=== PATIENT | male | born 1970 | race Caucasian/White ===

== ENCOUNTER 2024-07-03 15:07 | Inpatient (IN) | payer MEDICAID ==
[2024-07-03] VITALS (8 sets, daily range): BP systolic 114–144; BP diastolic 54–74; PULSE 82–128; RESP 24–28; O2SAT 91–99
[~2024-07-03] VITALS: Ht 177.8 cm; Wt 135.9 kg
[2024-07-03 20:08] LABS: ABG BASE EXCESS -2.9 mmol/L (-2.0-3.0); ABG HCO3 23.3 mmol/L (21.0-28.0); ABG OXYGEN SATURATION 98.3 % (94.0-98.0); ABG PCO2 (T) 45.4 mmHg (35.0-48.0); ABG PH (T) 7.327 (7.350-7.450); FCOHb 0.3 % (0.5-1.5); FHHb 1.7 % (0.0-5.0); FMetHb 0.3 % (0.0-1.5); FO2Hb 97.7 % (94.0-98.0); MODE PRVC; PATIENT TEMPERATURE 36.7; PEEP 10 cm H2O; RESPIRATORY RATE 24 b/min; TIDAL VOLUME 450 mL; TOTAL HEMOGLOBIN 13.4 G/dl (13.5-17.5)
--- NOTE | 2024-07-03 20:08 | RADIOLOGY REPORT ---
EXAM: DI CHEST,SINGLE VIEW CLINICAL HISTORY: Intubation/lines, transfer TECHNIQUE: Single AP view of the chest WID: COMPARISON: None FINDINGS: Lines and tubes: Endotracheal tube in place with the tip projecting 6.7 cm above the carola. Right IJ central venous catheter with the tip projecting over the low SVC. A gastric tube is in place descend ing beneath the level of the hemidiaphragm and tip not visualized in field of view. Chest: The heart size and pulmonary vasculature is within normal limits. Calcified plaque projects over the aortic arch. Diffuse hazy opacity throughout the left lung. No pneumothorax. The right lung is clear. The osseous structures are grossly intact. IMPRESSION: 1. Endotracheal tube, gastric tube, and right IJ central venous catheter in place as described. 2. Diffuse hazy opacity throughout the left lung which could reflect layering pleural fluid.
[2024-07-03] MEDS: midazolam 100mg in NS 100ml 100 ML IV SCH (20:09)
[2024-07-03] MEDS: FENTANYL-0.9 % NACL/PF 100 ML IV SCH (20:09)
[2024-07-03 20:16] LABS: BASOPHILS # (AUTO) 0.2 X10'3 (0-0.2); EOSINOPHILS % (AUTO) 0 % (0-6); HEMATOCRIT 38.1 % (42.0-52.0); HEMOGLOBIN 12.1 g/dl (14.0-17.9); LYMPHOCYTES # (AUTO) 0.3 X10'3 (1.1-4.8); LYMPHOCYTES % (AUTO) 1.6 % (21-51); MEAN CORPUSCULAR HEMOGLOBIN 28.4 PG (27.0-31.0); MEAN CORPUSCULAR HGB CONC 31.9 g/dL (33.0-36.5); MEAN CORPUSCULAR VOLUME 89.2 FL (78-98); MEAN PLATELET VOLUME 10.1 FL (7.4-10.4); MONOCYTES % (AUTO) 5.8 % (2-12); NEUTROPHILS # (AUTO) 16.1 X10'3 (1.8-7.7); NEUTROPHILS % (AUTO) 91.6 % (42-75); PLATELET COUNT 188 X10'3 (140-440); RED BLOOD COUNT 4.27 X10'6 (4.70-6.10); RED CELL DISTRIBUTION WIDTH 17.8 % (11.5-14.5); WHITE BLOOD COUNT 17.6 X10'3 (4.5-11.0)
[2024-07-03 20:29] LABS: APTT 27 SECONDS (22-32); INR 1.1 INR; PROTHROMBIN TIME 11.3 SECONDS (9.0-12.0)
[2024-07-03 20:34] LABS: ALANINE AMINOTRANSFERASE 49 U/L (12-78); ALBUMIN 2.7 G/DL (3.4-5.0); ALBUMIN/GLOBULIN RATIO 0.8 (1.1-1.5); ALKALINE PHOSPHATASE 109 IU/L (46-116); ANION GAP 12 (8-16); ASPARTATE AMINO TRANSFERASE 21 U/L (10-37); BLOOD UREA NITROGEN 142 MG/DL (7-18); BUN/CREATININE RATIO 53.8 (10.0-20.0); CALCIUM 8.5 MG/DL (8.5-10.1); CHLORIDE 108 MMOL/L (99-107); CREATININE 2.64 MG/DL (0.60-1.10); GLUCOSE 179 MG/DL (70-104); MAGNESIUM 3.4 MG/DL (1.5-2.4); PHOSPHORUS 6.7 MG/DL (2.3-4.5); POTASSIUM 4.3 MMOL/L (3.5-5.1); SODIUM 145 MMOL/L (135-145); TOTAL CARBON DIOXIDE 25.1 MMOL/L (24-32); TOTAL CELLS COUNTED 100; TOTAL PROTEIN 6.1 G/DL (6.4-8.2); eCRCL 33 ML/MIN; eGFR 25 ML/MIN
[2024-07-03] MEDS ORDERED: acetaminophen 325mg tablet PO PRN ×2 (20:40)
[2024-07-03] MEDS: normal saline 1000ml 1,000 ML IV SCH (20:40)
[2024-07-03] MEDS ORDERED: ondansetron/PF 4mg/2ml inj IV PRN (20:40)
[2024-07-03] MEDS ORDERED: normal saline 1000ml 1,000 ML IV SCH (20:40)
--- NOTE | 2024-07-03 20:52 | HISTORY AND PHYSICAL ---
History & Physical Providers to CC Direct transfer from another facility called [facility] for continued respiratory support~ History of Present Illness Reason for Admit\Complaint: Acute respiratory failure, sepsis, MICKEY, and pleural effusion History of Present Illness History is obtained from communication with the RN at the bedside. Patient apparently was admitted about 9 days ago to another facility with respiratory failure. He has been now being treated with possible pneumonia sepsis, respiratory failure, and MICKEY. Labs available since admission reviewed. Has Zamora and central line in place Zamora with hematuria per RN OG tube in place was on tube feeds. Allergies: Coded Allergies: No Known Allergies (Unverified , 07/03/24) Exam Vitals: Vital Signs Date Time Temp Pulse Resp B/P (MAP) Pulse Ox O2 Delivery O2 Flow Rate FiO2 07/03/24 20:10 60 07/03/24 20:09 131/83 07/03/24 20:09 25 07/03/24 19:39 82 99 Diagnostic Data Last Recorded Lab Results: 07/03/24200407/03/242004 Diagnostic Data: Laboratory Tests Test 07/03/24 20:05 Prothrombin Time 11.3 SECONDS (9.0-12.0) INR International Normalized Ratio 1.1 INR Activated Partial Thromboplast Time 27 SECONDS (22-32) Coagulation Comments Additional Plan 1. Acute hypoxic respiratory failure 2. Pneumonia left lung 3. Pleural effusion mostly on the left side based on chest x-ray 4. MICKEY 5. Leukocytosis 6. Hematuria possibly traumatic Zamora insertion Plan Continue the present vent support. Will place the patient on Zosyn and vancomycin CT chest abdomen and pelvis without contrast May need continuous bladder lavage if hematuria persist may also need urology to see then. Stay on sedation as now fentanyl and Versed. Monitor intake output DVT prophylaxis Stress ulcer prophylaxis BRUNO OBRIEN MD Jul 03, 2024 20:52
[2024-07-03] MEDS: amiodarone 150mg/dext, iso-os 100 ML IV ONE (21:06)
[2024-07-03] MEDS: amiodarone/D5 360MG/200ML BAG 200 ML IV SCH (21:22)
[2024-07-03] MEDS: vancomycin/NS 1 GM ADD-VANTAGE 250 ML IV ONE (21:48)
[2024-07-03] MEDS: ipratropium/albuterol 3ml nebule NEB SCH (23:45)
[2024-07-04] VITALS (39 sets, daily range): BP systolic 82–140; BP diastolic 39–79; PULSE 58–149; RESP 16–31; O2SAT 90–98
[2024-07-04 00:01] LABS: ABG BASE EXCESS -3.7 mmol/L (-2.0-3.0); ABG HCO3 20.8 mmol/L (21.0-28.0); ABG OXYGEN SATURATION 93.9 % (94.0-98.0); ABG PCO2 (T) 35.7 mmHg (35.0-48.0); ABG PH (T) 7.382 (7.350-7.450); FCOHb 0.4 % (0.5-1.5); FHHb 6.1 % (0.0-5.0); FMetHb 0.3 % (0.0-1.5); FO2Hb 93.2 % (94.0-98.0); MODE PRVC; PATIENT TEMPERATURE 36.9; PEEP 10 cm H2O; RESPIRATORY RATE 24 b/min; TIDAL VOLUME 450 mL
[2024-07-04] MEDS: piperacillin/tazo 3.375gm/50ml 50 ML IV SCH (00:13)
[2024-07-04] MEDS: NORepinephrine 8mg/ 250ml NS 250 ML IV SCH (01:44)
[2024-07-04] MEDS: acetylcysteine 200 MG/ml 4ml vial INH ONE (02:30)
[2024-07-04 03:07] LABS: ABG BASE EXCESS -3.9 mmol/L (-2.0-3.0); ABG HCO3 21.4 mmol/L (21.0-28.0); ABG OXYGEN SATURATION 94.5 % (94.0-98.0); ABG PCO2 (T) 39.4 mmHg (35.0-48.0); ABG PH (T) 7.352 (7.350-7.450); ABG PO2 (T) 76.5 mmHg (83.0-108.0); FCOHb 0.3 % (0.5-1.5); FHHb 5.5 % (0.0-5.0); FMetHb 0.3 % (0.0-1.5); FO2Hb 93.9 % (94.0-98.0); MODE PRVC; PATIENT TEMPERATURE 36.6; PEEP 10 cm H2O; RESPIRATORY RATE 24 b/min; TIDAL VOLUME 450 mL; TOTAL HEMOGLOBIN 13.5 G/dl (13.5-17.5)
[2024-07-04 03:43] LABS: BASOPHILS # (AUTO) 0.1 X10'3 (0-0.2); BASOPHILS % (AUTO) 0.3 % (0-1); EOSINOPHILS % (AUTO) 0 % (0-6); HEMOGLOBIN 12.3 g/dl (14.0-17.9); LYMPHOCYTES # (AUTO) 0.8 X10'3 (1.1-4.8); LYMPHOCYTES % (AUTO) 3.7 % (21-51); MEAN CORPUSCULAR HEMOGLOBIN 28.5 PG (27.0-31.0); MEAN CORPUSCULAR HGB CONC 32.3 g/dL (33.0-36.5); MEAN CORPUSCULAR VOLUME 88.3 FL (78-98); MONOCYTES # (AUTO) 2.1 X10'3 (0-0.9); MONOCYTES % (AUTO) 9.6 % (2-12); NEUTROPHILS # (AUTO) 18.6 X10'3 (1.8-7.7); NEUTROPHILS % (AUTO) 86.4 % (42-75); PLATELET COUNT 205 X10'3 (140-440); RED BLOOD COUNT 4.31 X10'6 (4.70-6.10); RED CELL DISTRIBUTION WIDTH 17.6 % (11.5-14.5); WHITE BLOOD COUNT 21.5 X10'3 (4.5-11.0)
[2024-07-04 04:06] LABS: ALANINE AMINOTRANSFERASE 43 U/L (12-78); ALBUMIN 2.7 G/DL (3.4-5.0); ALBUMIN/GLOBULIN RATIO 0.8 (1.1-1.5); ALKALINE PHOSPHATASE 105 IU/L (46-116); ANION GAP 13 (8-16); ASPARTATE AMINO TRANSFERASE 21 U/L (10-37); BLOOD UREA NITROGEN 137 MG/DL (7-18); BUN/CREATININE RATIO 58.3 (10.0-20.0); CALCIUM 8.7 MG/DL (8.5-10.1); CHLORIDE 109 MMOL/L (99-107); CREATININE 2.35 MG/DL (0.60-1.10); GLUCOSE 165 MG/DL (70-104); MAGNESIUM 3.4 MG/DL (1.5-2.4); PHOSPHORUS 5.3 MG/DL (2.3-4.5); POTASSIUM 4.1 MMOL/L (3.5-5.1); SODIUM 148 MMOL/L (135-145); TOTAL CARBON DIOXIDE 26.1 MMOL/L (24-32); TOTAL PROTEIN 5.9 G/DL (6.4-8.2); eCRCL 37 ML/MIN; eGFR 29 ML/MIN
--- NOTE | 2024-07-04 06:02 | RADIOLOGY REPORT ---
EXAM: DI CHEST,SINGLE VIEW HISTORY: Intubated COMPARISON: DI CHEST,SINGLE VIEW on DOS: 07/03/24 TECHNIQUE: Portable AP view of the chest was performed. FINDINGS: Endotracheal tube is re-identified with its tip about 9 cm above the carola. OG tube and right IJ merly tral line are re-identified. There are mild opacities in the lung bases, [id number]-right, wit h interval improvement in the diffuse left lung hazy opacity seen on the prior chest x-ray. No pneumo thorax. The heart is enlarged. The aortic arch is calcific. The central pulmonary arteries may be ectatic. IMPRESSION: 1. Mechanical ventilation with tubes and lines as above. The endotracheal tube tip is about 9 cm abo ve the carola and should be advanced about 5 cm, followed by repeat portable chest x-ray. 2. Mild bilateral lung base opacities. Diffuse left lung hazy opacity seen previously has improved i n the interim. 3. Cardiomegaly and atherosclerotic vascular disease.
[2024-07-04] MEDS: famotidine/PF 10 mg/ml inj IV SCH (07:18)
[2024-07-04] MEDS: heparin, porcine 5000 units/ml vial SQ SCH (07:19)
[2024-07-04] MEDS ORDERED: dextrose 5%-normal saline 1,000 ML IV SCH (09:45)
[2024-07-04] MEDS: digoxin 250mcg/ml 2ml ampule IV ONE ×2 (10:37→16:30)
[2024-07-04] MEDS: dextrose 5%-water 1,000 ML IV SCH (10:46)
[2024-07-04] MEDS ORDERED: acetaminophen 325mg/10.15ml oral unit dose solution OGT PRN ×2 (11:09→11:12)
[2024-07-04] MEDS ORDERED: UNABLE TO OBTAIN (11:14)
[2024-07-04] MEDS: PERFLUTREN PROTEIN-A MICROSPHR (Optison) 0.22 MG/ML 3ML VIAL IV ONE (12:25)
--- NOTE | 2024-07-04 12:44 | PROGRESS NOTE- Residence ---
Progress Note - Resident Providers to CC Resident Creating Document: ROSE TONY RES ~ Zamora-Non Protocol Zamora Indications Met/Not Met: F/C Indications Met Antibiotic Timeout Antibiotic Ordered?: Yes Subjective Patient was seen and examined in ICU. He is being treated for sepsis secondary to pneumonia, acute hypoxemic respiratory failure, and MICKEY. He has leukocytosis with a WBC of 21.5, creatinine 2.35. He still requires FiO2 80% with PEEP of 12. He is in AFib with RVR (upper 140s), despite being on amiodarone drip 0.5 mcg, we increased to 1 mcg. Also, patient is being digitalized. Received 1st dose of digoxin 0.5 mg. Objective Vital Signs Date Time Temp Pulse Resp B/P (MAP) Pulse Ox O2 Delivery O2 Flow Rate FiO2 07/04/24 11:36 109 27 Mechanical Ventilator 70 07/04/24 11:29 94 07/04/24 09:05 135/60 07/04/24 05:52 97.5 General: Sedated, intubated, mechanically ventilated; FiO2 70%, PEEP 12 HEENT: Conjunctiva pink, Sclera clear, Mucus Membranes moist. Neck: Supple without masses and tenderness. Resp: Crackles left middle lobe Heart: Regular Rate and rhythm, normal S1 and S2 without murmur, rub or gallop. Abdomen: Soft and non tender no organomegaly Extremities: No cyanosis,clubbing or edema. Skin: Warm and Dry. Result Diagram: 07/04/24 0325 07/04/24 0325 Coagulation Studies Laboratory Tests Test 07/03/24 20:05 Prothrombin Time 11.3 SECONDS (9.0-12.0) INR International Normalized Ratio 1.1 INR Activated Partial Thromboplast Time 27 SECONDS (22-32) Coagulation Comments Advance Care Planning Advanced Care plannin - 30 Minutes Assessment Assessment This is a 54-year-old male who is ex-smoker (40 years smoking history) and morbidly obese, with a history of COPD was transferred from [facility] for further evaluation and management of sepsis, altered mental status, acute hypoxemic respiratory failure, and acute kidney injury. Patient was initially presented to the transferring facility for altered mentation and found down for prolonged period of time (altered, labored breathing, foaming at mouth). He was initially on BiPAP and later intubated. His FiO2 requirements had been gone up to 90%. He had been on two pressors i.e. Levophed and vasopressin. Plan Plan Respiratory: Acute hypoxemic respiratory failure 2/2 likely aspiration pneumonia History of COPD On mechanical ventilation; FiO2 70%, PEEP 10 Infectious disease: Sepsis present on admission Source likely aspiration pneumonia WBC trending up, 21.5 today Keep map > 65, on pressors Continue vancomycin and Zosyn Cardiac: Augment hemodynamics with pressors On Levophed 0.4 mcg/kg/minute Follow echo with bubble AFib with RVR; HR in 140s - on amiodarone drip, undergoing digitalization Neurologic: Acute metabolic encephalopathy, likely 2/2 sepsis Currently sedated Renal: Acute renal failure, likely vasomotor nephropathy Creatinine trending down from > for to 2.35 today Nephrology consulted, Dr. Puente on board Monitor BMP Morbid obesity: Can not exclude SALLY and ohs Lines and tubes: ETT 0 G-tube Zamora catheter R IJ CBC Right radial A-line oRse Tony ICU Resident Date of Service: Jul 04, 2024 Billing Provider: JEFFERSON JACOBS MD,ROSE, RES Jul 04, 2024 12:44
[2024-07-04] MEDS: albumin (Human) 5% 250ml 250 ML IV ONE ×2 (13:39→14:55)
--- NOTE | 2024-07-04 14:33 | PROGRESS NOTE ---
Progress Note Dictate Providers to CC ~ Progress Note: Referring Physician: Field Scout Reason for Consultation: MICKEY evaluation Chief Complaint: pneumonia and sepsis History of Present Illness: this is a 54-year-old man who was admitted for acute hypoxic respiratory failure with pneumonia and sepsis, developed an MICKEY after prolonged hypotension, his baseline creatinine is unknown to us, on admission his creatinine was2.64, today it is 2.35, He is making urine 1.3 L yesterday, we have been asked to evaluate his MICKEY and make specific recommendations Review of Systems: unable to assess secondary to critical Antibiotic Ordered?: Yes Subjective Subjective Nurses report no new events since last evaluation Objective Vitals Vital Signs Date Time Temp Pulse Resp B/P (MAP) Pulse Ox O2 Delivery O2 Flow Rate FiO2 07/04/24 13:50 142 25 93 70 07/04/24 11:36 Mechanical Ventilator 07/04/24 09:05 135/60 07/04/24 05:52 97.5 General: Ill-appearing, intubated, ventilated, FiO2 70%, 15 PEEP, Neck: Supple, without JVD Heart: Regular rate and rhythm, no murmur Lungs: Clear to auscultation and percussion Abdomen: Bowel sounds decreased, no tenderness, organomegaly, masses, or hernia Extremities: No cyanosis, no edema, peripheral pulses intact Neurologic: Sensation to touch, normal. DTRs normal moves all extremities sponatneously. Lab Results: 07/04/24 0325 07/04/24 0325 Coagulation Studies Laboratory Tests Test 07/03/24 20:05 Prothrombin Time 11.3 SECONDS (9.0-12.0) INR International Normalized Ratio 1.1 INR Activated Partial Thromboplast Time 27 SECONDS (22-32) Coagulation Comments Other Results I & O 07/04/24 07:00 Intake Total 997.12 ml Output Total 1940 ml Balance -942.88 ml Intake IV Total 997.12 ml Output Urine Total 1640 ml Gastric Drainage Total 300 ml Problem\Assessment\Plan Problems/Diagnosis: (1) MICKEY (acute kidney injury) Assessment & Plan: Most consistent with ATN in the setting of prolonged hypotension and sepsis, on examination I believe he is hypovolemic today, would recommend D5W at 100 to 150 mL/h, would also give 200 mL of free water through his OG tube every 4 hours - daily urine creatinine, osmolality, sodium, urea, electrolytes daily along with his routine renal panel to help assess his volume status and changes to therapy to help guide us on our IV fluids and other therapy (2) Electrolyte abnormality Assessment & Plan: Hypernatremia, free water deficit about 4 L, will start D5W at 125 mL/h, free water flushes through OG tube 200 mL every 4 hours, repeat sodium later today (3) Sepsis Assessment & Plan: I would recommend continued IV fluid D5W with sodium bicarbonate would be sufficient for the next 24 hours we will assess daily for need for IVF, and she has the proper solution for her needs, treated by primary team with the appropriate antibiotics Additional Plan Cautious use of digoxin with renal impairment, loading dose should be 25 to 50% of her normal dose, monitor for toxicity NAZARIO ALVA III DO Jul 04, 2024 14:33
[2024-07-04] MEDS ORDERED: esmolol/sodium cl bag 250 ML IV SCH (15:25)
[2024-07-04] MEDS: esmolol/sodium cl bag 250 ML IV SCH (16:34)
--- NOTE | 2024-07-04 19:05 | HISTORY AND PHYSICAL ---
History & Physical Providers to CC ~ History of Present Illness Reason for Admit\Complaint: Acute respiratory failure/ sepsis History of Present Illness This is a 54-year-old male who was transferred from [facility] t here was a copious amount of labs that were included in the packet however there was scant documentation at best. Do have a discharge summary from [facility] on 05/29/2024 at that time the patient has a acute respiratory failure and was on a CPAP it was titrated down to 4 L he also had an acute kidney injury with a creatinine of five which was felt to be secondary to ibuprofen use. The patient was transferred to [facility] intubated and has sepsis secondary to pneumonia in his on a Levophed drip as well as AFib RVR on amiodarone drip as well as receiving digoxin. Patient was renal function is improving in his followed by Dr. Mckeon economic historian Allergies: Coded Allergies: No Known Allergies (Unverified , 07/03/24) Home Medications Home Medications Active Reported Unable to Obtain Medications (Non-Formulary Medication) Each UNABLE TO COMPLETE MED REC, PT INTUBATED Past Medical History Past Medical History MICKEY COPD Obstructive sleep apnea Syncope Past Surgical History Surgical History Comment Not obtainable at this juncture due to current sedation status on a ventilator Past Social History Social History Comment Unobtainable sedated on a ventilator Exam Vitals: Vital Signs Date Time Temp Pulse Resp B/P (MAP) Pulse Ox O2 Delivery O2 Flow Rate FiO2 07/04/24 18:00 96.8 77 24 129/63 (85) 93 07/04/24 17:35 60 07/04/24 14:00 Mechanical Ventilator General: Gen. Sedated on a ventilator Lungs coarse breath sounds at the bases bilaterally Heart irregular rhythm no murmurs rubs or clicks noted Abdomen soft nontender bowel sounds are normoactive Lower extremities no clubbing cyanosis, nor edema appreciated bilaterally Diagnostic Data Last Recorded Lab Results: 07/04/24 0325 07/04/24 0325 Diagnostic Data: Laboratory Tests Test 07/03/24 20:05 Prothrombin Time 11.3 SECONDS (9.0-12.0) INR International Normalized Ratio 1.1 INR Activated Partial Thromboplast Time 27 SECONDS (22-32) Coagulation Comments Problems: (1) Sepsis Additional Plan # sepsis/septic shock- Likely secondary to aspiration pneumonia On IV vancomycin IV Zosyn On Levophed # AFib RVR On amiodarone and digoxin and esmolol # MICKEY Renal function is improving [employer] Dr. Mckeon is on board and following the patient On a D5W drip # obstructive sleep apnea Unclear if the patient has a BiPAP or CPAP at home Full code status by default Date of Service: Jul 04, 2024 Billing Provider: JARET LARA DO Common Visit Codes: [id number] INP/OBS CARE (HIGH) JARET LARA DO Jul 04, 2024 19:05
[2024-07-05] VITALS (38 sets, daily range): BP systolic 90–160; BP diastolic 35–88; PULSE 56–85; RESP 16–26; O2SAT 92–98
[2024-07-05] MEDS: mineral oil/petrolatum ophthal oint EACHEYE SCH (01:41)
[2024-07-05 02:55] LABS: BASOPHILS % (AUTO) 0.2 % (0-1); EOSINOPHILS # (AUTO) 0.1 X10'3 (0-0.9); EOSINOPHILS % (AUTO) 0.6 % (0-6); HEMOGLOBIN 10.7 g/dl (14.0-17.9); LYMPHOCYTES # (AUTO) 1.7 X10'3 (1.1-4.8); LYMPHOCYTES % (AUTO) 12.6 % (21-51); MEAN CORPUSCULAR HEMOGLOBIN 28.7 PG (27.0-31.0); MEAN CORPUSCULAR HGB CONC 32.3 g/dL (33.0-36.5); MEAN CORPUSCULAR VOLUME 88.7 FL (78-98); MEAN PLATELET VOLUME 10.4 FL (7.4-10.4); MONOCYTES # (AUTO) 1.3 X10'3 (0-0.9); MONOCYTES % (AUTO) 9.9 % (2-12); NEUTROPHILS # (AUTO) 10.3 X10'3 (1.8-7.7); NEUTROPHILS % (AUTO) 76.7 % (42-75); PLATELET COUNT 158 X10'3 (140-440); RED BLOOD COUNT 3.72 X10'6 (4.70-6.10); RED CELL DISTRIBUTION WIDTH 17.6 % (11.5-14.5); WHITE BLOOD COUNT 13.5 X10'3 (4.5-11.0)
[2024-07-05 03:01] LABS: BILIRUBIN,URINE NEGATIVE (Neg); CLARITY,URINE CLOUDY (Clear); COLOR,URINE YELLOW (Yellow); GLUCOSE, URINE NEGATIVE (Neg); KETONES,URINE NEGATIVE (Neg); LEUKOCYTE ESTERASE ,URINE TRACE (Neg); NITRITES, URINE NEGATIVE (Neg); OCCULT BLOOD,URINE MODERATE (Neg); PROTEIN,URINE 30 mg/dl (Neg); UROBILINOGEN,URINE 0.2 E.U/dL (0.2-1.0)
[2024-07-05 03:10] LABS: CHLORIDE,URINE RANDOM < 50 MEQ/L; URINE AMPHETAMINE SCREEN NEGATIVE (Neg); URINE BARBITUATE SCREEN NEGATIVE (Neg); URINE BENZODIAZEPINES SCREEN POSITIVE (Neg); URINE CANNABINOID SCREEN POSITIVE (Neg); URINE COCAINE SCREEN NEGATIVE (Neg); URINE METHADONE SCREEN NEGATIVE (Neg); URINE OPIATE SCREEN NEGATIVE (Neg); URINE PHENCYCLIDINE SCREEN NEGATIVE (Neg)
[2024-07-05 03:14] LABS: UA COLLECTION TYPE NON-SPECIFIED
[2024-07-05 03:18] LABS: BACTERIA,URINE FEW /HPF (Neg); MUCUS STRANDS MODERATE /LPF (Neg); RBC,URINE TNTC /HPF (0-2); SQUAMOUS EPITHELIAL CELL,UR FEW /LPF (FEW)
[2024-07-05 03:19] LABS: URIC ACID CRYSTALS FEW /HPF (NEGATIVE)
--- NOTE | 2024-07-05 03:19 | PROGRESS NOTE ---
Progress Note Dictate Providers to CC Admitted as a transfer from another facility with respiratory failure ARDS requiring vent support for more than a week.~ Progress Note: More information available about the patient from bedside physicians. Apparently was at the facility found in respiratory failure for unknown period of time. Was initially on BiPAP and failed and had to be intubated. Currently not facility continues to remain requiring higher FiO2's. RN at the bedside reports no new issues today. Antibiotic Ordered?: N/A Objective Vitals Vital Signs Date Time Temp Pulse Resp B/P (MAP) Pulse Ox O2 Delivery O2 Flow Rate FiO2 07/05/24 03:10 70 25 92 60 07/05/24 02:30 98.2 95/39 (57) Mechanical Ventilator Lab Results: 07/05/24 0210 07/04/24 0325 Coagulation Studies Laboratory Tests Test 07/03/24 20:05 Prothrombin Time 11.3 SECONDS (9.0-12.0) INR International Normalized Ratio 1.1 INR Activated Partial Thromboplast Time 27 SECONDS (22-32) Coagulation Comments Problem\Assessment\Plan Additional Plan 1. Acute hypoxic respiratory failure 2. Pneumonia 3. Left sided effusion?. 4. Anemia of chronic disease 5. MICKEY 6. Hypernatremia. Continues to remain requiring high FiO2 still. Repeat chest x-ray to be performed today. May require CT chest? Continue antibiotics as now. He is nonoliguric. Hyponatremia May need free water. Signed out to the day team. BRUNO OBRIEN MD Jul 05, 2024 03:19
[2024-07-05 03:41] LABS: ALANINE AMINOTRANSFERASE 36 U/L (12-78); ALBUMIN 2.4 G/DL (3.4-5.0); ALBUMIN/GLOBULIN RATIO 0.9 (1.1-1.5); ALKALINE PHOSPHATASE 87 IU/L (46-116); ANION GAP 7 (8-16); ASPARTATE AMINO TRANSFERASE 18 U/L (10-37); BLOOD UREA NITROGEN 100 MG/DL (7-18); BUN/CREATININE RATIO 59.5 (10.0-20.0); CALCIUM 8.3 MG/DL (8.5-10.1); CHLORIDE 113 MMOL/L (99-107); CREATININE 1.68 MG/DL (0.60-1.10); DIGOXIN 0.7 NG/ML (0.9-1.9); GLUCOSE 183 MG/DL (70-104); MAGNESIUM 2.7 MG/DL (1.5-2.4); PHOSPHORUS 2.5 MG/DL (2.3-4.5); POTASSIUM 3.6 MMOL/L (3.5-5.1); PREALBUMIN 42.2 MG/DL (19-36); SODIUM 146 MMOL/L (135-145); TOTAL CARBON DIOXIDE 25.7 MMOL/L (24-32); TOTAL PROTEIN 5.1 G/DL (6.4-8.2); eCRCL 52 ML/MIN; eGFR 43 ML/MIN
[2024-07-05 03:42] LABS: ABG BASE EXCESS -2.1 mmol/L (-2.0-3.0); ABG HCO3 22.1 mmol/L (21.0-28.0); ABG OXYGEN SATURATION 91.3 % (94.0-98.0); ABG PCO2 (T) 35.3 mmHg (35.0-48.0); ABG PH (T) 7.413 (7.350-7.450); ABG PO2 (T) 60.5 mmHg (83.0-108.0); FCOHb 0.4 % (0.5-1.5); FHHb 8.6 % (0.0-5.0); FMetHb 0.3 % (0.0-1.5); FO2Hb 90.7 % (94.0-98.0); MODE VENT - AC; PATIENT TEMPERATURE 36.6; PEEP 10 cm H2O; RESPIRATORY RATE 24 b/min; TIDAL VOLUME 450 mL; TOTAL HEMOGLOBIN 12.1 G/dl (13.5-17.5)
[2024-07-05] MEDS: digoxin 250mcg/ml 2ml ampule IV ONE (04:12)
--- NOTE | 2024-07-05 06:15 | RADIOLOGY REPORT ---
EXAM: XR Chest, 1 View CLINICAL INDICATION: Intubated TECHNIQUE: Frontal view of the chest. COMPARISON: DI CHEST,SINGLE VIEW on DOS: 07/04/24, DI CHEST,SINGLE VIEW on DOS: 07/03/24 FINDINGS: LUNGS AND PLEURAL SPACES: Pulmonary congestion and edema. Pneumonia cannot be excluded. Left basil ar atelectasis or pneumonia. Left pleural effusion. No pneumothorax. HEART: Unremarkable. No cardiomegaly. MEDIASTINUM: Unremarkable. Normal mediastinal contour. BONES/JOINTS: Unremarkable. No acute fracture. TUBES, LINES AND DEVICES: The endotracheal tube (ETT) is in satisfactory position. Enteric tube ti p cannot be seen but is below the diaphragm. OTHER FINDINGS: . . IMPRESSION: 1. Pulmonary congestion and edema. Pneumonia cannot be excluded. 2. Left basilar atelectasis or pneumonia. 3. Left pleural effusion.
[2024-07-05] MEDS: famotidine/PF 10 mg/ml inj IV SCH (08:44)
[2024-07-05 09:21] LABS: FREE T4 (FREE THYROXINE) 1.09 NG/DL (0.73-1.40); THYROID STIMULATING HORMONE 2.38 ulU/ml (0.34-4.50)
--- NOTE | 2024-07-05 10:08 | RADIOLOGY REPORT ---
Exam: CT CT CHEST ABDOMEN PELVIS History: 1330- HOLD PER RN;PATIENT TOO UNSTABLE Comparison Study: None available at time of dictation. Technique: Multidetector spiral CT of the chest, abdomen and pelvis was performed from lower neck to pubic symphysis. Intravenous contrast was administered during this examination. Axial, coronal and sagittal multiplanar reformats were performed by the technologist on a separate workstation. Radiation Dose : 1. Chest/Abdomen/Pelvis: CTDIvol 31 mGy, DLP 2731 mGy*cm. Findings: Lower neck: Endotracheal tube in satisfactory position. Lungs: Atelectasis/consolidation of the left upper lobe. Dependent atelectasis. Heart/Vascular Structures: Cardiomegaly. Coronary artery calcifications. Vascular calcifications of t he aorta. Lymph Nodes: No adenopathy Pleura: Small bilateral pleural effusions. Liver: The liver is normal in size. No focal lesions. Normal hepatic vascular enhancement. Gallbladder and Biliary Tree: Gallbladder is surgically absent. Spleen: Unremarkable Pancreas: The pancreas is normal in appearance without focal lesions or abnormal enhancement. Adrenal Glands: Unremarkable Kidneys: Kidneys demonstrate normal symmetric enhancement without focal lesions, calculi or hydroneph rosis. Bladder: Bladder is decompressed with a Zamora catheter and cannot be adequately assessed. Bowel: Enteric catheter in the stomach. Small bowel and colon are normal in caliber and distribution. The appendix is not visualized; however, no secondary findings of acute appendicitis identified. Ascites: Absent Lymphadenopathy: No mesenteric, retroperitoneal or periportal lymphadenopathy. Abdominal Wall and Mesentery: Moderate fat containing umbilical hernia. Vasculature: Vascular calcifications of the aorta. Pelvic Organs: Unremarkable Musculoskeletal: No aggressive focal bony lesions, acute fractures or dislocation. Degenerative jackman es of the spine. IMPRESSION: Left upper lobe atelectasis/consolidation.
--- NOTE | 2024-07-05 11:41 | PROGRESS NOTE ---
Progress Note Dictate Providers to CC ~ Antibiotic Ordered?: N/A Subjective Subjective Nurses report no new events overnight, hypernatremia improving with D5W, creatinine improveng slowly each day Objective Vitals Vital Signs Date Time Temp Pulse Resp B/P (MAP) Pulse Ox O2 Delivery O2 Flow Rate FiO2 07/05/24 15:55 75 24 Mechanical Ventilator 50 07/05/24 15:37 98 07/05/24 14:00 98.6 97/45 (62) General: ill-appearing, intubated, sedated, mechanical ventilated, Neck: Supple, without JVD Heart: Regular rate and rhythm, no murmur Lungs: Clear to auscultation and percussion Abdomen: Bowel sounds decreased, no tenderness, organomegaly, masses, or hernia Extremities: No cyanosis, no edema, peripheral pulses intact Neurologic: Sensation to touch, normal. DTRs normal moves all extremities sponatneously. Lab Results: 07/05/24 0210 07/05/24 0210 Coagulation Studies Laboratory Tests Test 07/03/24 20:05 Prothrombin Time 11.3 SECONDS (9.0-12.0) INR International Normalized Ratio 1.1 INR Activated Partial Thromboplast Time 27 SECONDS (22-32) Coagulation Comments Problem\Assessment\Plan Problems/Diagnosis: (1) MICKEY (acute kidney injury) Assessment & Plan: Most consistent with ATN in the setting of prolonged hypotension and sepsis, on examination I believe he is hypovolemic today, would recommend continuing D5W at 100 to 150 mL/h, would also give 200 mL of free water through his OG tube every 4 hours - daily urine creatinine, osmolality, sodium, urea, electrolytes daily along with his routine renal panel to help assess his volume status and changes to therapy to help guide us on our IV fluids and other therapy (2) Electrolyte abnormality Assessment & Plan: Hypernatremia, free water deficit about 3 L, will start D5W at 125 mL/h, free water flushes through OG tube 200 mL every 4 hours, repeat sodium later today (3) Sepsis Assessment & Plan: I would recommend continued IV fluid D5W with sodium bicarbonate would be sufficient for the next 24 hours we will assess daily for need for IVF, and he has the proper solution for his needs, treated by primary team with the appropriate antibiotics NAZARIO ALVA III DO Jul 05, 2024 11:41
[2024-07-05] MEDS: acetylcysteine 200 MG/ml 4ml vial INH SCH (12:00)
[2024-07-05 15:56] LABS: THYROID STIMULATING HORMONE 2.82 ulU/ml (0.34-4.50)
[2024-07-05] MEDS ORDERED: LOP12.5T PO (16:36)
[2024-07-05] MEDS ORDERED: POTA-192 PO (16:36)
[2024-07-05] MEDS ORDERED: FURO-150 PO (16:36)
[2024-07-05] MEDS ORDERED: PANT20TA18 PO (16:36)
[2024-07-05] MEDS ORDERED: IPRA4AER IH (16:36)
[2024-07-05] MEDS ORDERED: IPRA3AMP31 IH (16:36)
[2024-07-05] MEDS ORDERED: GABA-530 PO (16:36)
[2024-07-05] MEDS ORDERED: LISI40TA13 PO (16:36)
[2024-07-05] MEDS ORDERED: METH-797 PO (16:36)
[2024-07-05] MEDS ORDERED: ONDA-243 PO (16:36)
[2024-07-05] MEDS ORDERED: AMLO2.5T2 PO (16:36)
--- NOTE | 2024-07-05 17:23 | PROCEDURE NOTE- Residance ---
Procedure Note Providers to CC CC: JEFFERSON JACOBS MD ~ Planned Procedure flexible bronchoscopy Indications left upper lobe atelectasis Post Operative Dx: left main bronchus mucus plug Type of Anesthesia none, on sedation with propofol and fentanyl Informed Consent yes Description Through the port in ET tube, bronchoscope was inserted and then advanced to the carola and subsequently into the trachea. 1% lidocaine was injected. Airway inspection revealed a mucus plug in the left mainstem bronchus that was suctioned out. The mucus plug was sent for Gram stain and culture. The procedure was then conclude Dr. Jacobs was present throughout the procedure Estimated Blood Loss none Complication none X-Ray Findings not indicated Date of Service: Jul 05, 2024 Billing Provider: JEFFERSON JACOBS MD [facility], RES Jul 05, 2024 17:23
--- NOTE | 2024-07-05 17:57 | PROGRESS NOTE- Residence ---
Progress Note - Resident Providers to CC Resident Creating Document: ROSE TONY RES ~ Central Line/PICC still needed: Yes Zamora-Non Protocol Zamora Indications Met/Not Met: F/C Indications Met Antibiotic Timeout Antibiotic Ordered?: Yes Subjective Patient was seen and examined in ICU. Objective Vital Signs Date Time Temp Pulse Resp B/P (MAP) Pulse Ox O2 Delivery O2 Flow Rate FiO2 07/05/24 16:00 98.4 69 24 101/42 (61) 96 07/05/24 15:55 Mechanical Ventilator 50 Result Diagram: 07/05/24 0210 07/05/24 0210 Coagulation Studies Laboratory Tests Test 07/03/24 20:05 Prothrombin Time 11.3 SECONDS (9.0-12.0) INR International Normalized Ratio 1.1 INR Activated Partial Thromboplast Time 27 SECONDS (22-32) Coagulation Comments Advance Care Planning Advanced Care plannin - 30 Minutes Assessment Assessment This is a 54-year-old male who is ex-smoker (40 years smoking history) and morbidly obese, with a history of COPD was transferred from [facility] for further evaluation and management of sepsis, altered mental status, acute hypoxemic respiratory failure, and acute kidney injury. Patient was initially presented to the transferring facility for altered mentation and found down for prolonged period of time (altered, labored breathing, foaming at mouth). He was initially on BiPAP and later intubated. His FiO2 requirements had been gone up to 90%. He had been on two pressors i.e. Levophed and vasopressin. Plan Plan Respiratory: Acute hypoxemic respiratory failure 2/2 likely aspiration pneumonia History of COPD On mechanical ventilation; FiO2 70%, PEEP 10 Infectious disease: Sepsis present on admission Source likely aspiration pneumonia WBC trending up, 21.5 today Keep map > 65, on pressors Continue vancomycin and Zosyn Cardiac: Augment hemodynamics with pressors On Levophed 0.4 mcg/kg/minute Follow echo with bubble AFib with RVR; HR in 140s - on amiodarone drip, undergoing digitalization Neurologic: Acute metabolic encephalopathy, likely 2/2 sepsis Currently sedated Renal: Acute renal failure, likely vasomotor nephropathy Creatinine trending down from > for to 2.35 today Nephrology consulted, Dr. Puente on board Monitor BMP Morbid obesity: Can not exclude SALLY and OHS July 04, 2024: He is being treated for sepsis secondary to pneumonia, acute hypoxemic respiratory failure, and MICKEY. He has leukocytosis with a WBC of 21.5, creatinine 2.35. He still requires FiO2 80% with PEEP of 12. He is in AFib with RVR (upper 140s), despite being on amiodarone drip 0.5 mcg, we increased to 1 mcg. Also, patient is being digitalized. Received 1st dose of digoxin 0.5 mg. July 05, 2024: Continued to remain requiring high FiO2 but reduced from yesterday; 60% and 80% respectively Stable hemodynamics with pressors i.e. Levophed 0.6 mcg WBC down trended to 13.4 from 21.5 yesterday MICKEY; kidney function improving, creatinine 1.68 today, down from 2.35 yesterday - Dr Wall on board CT chest shows left upper lobe atelectasis/consolidation suggestive of pneumonia Undergone fibrotic bronchoscopy; mucus plug left upper lobe removed. Mucomyst/acetylcysteine solution initiated Echo shows RVSP 44, an LV EF 65-70%. No right ventricle strain TSH, and T4 normal . A1c 6.1 AFib; Ventricular rate controlled with esmolol, discontinued. Continue metoprolol 25 mg p.o. every 6 hours Lines and tubes: ETT 0 G-tube Zamroa catheter R IJ CBC Right radial A-line Rose Tony ICU Resident Date of Service: Jul 05, 2024 Billing Provider: JEFFERSON JACOBS MD, [facility], RES Jul 05, 2024 17:57
--- NOTE | 2024-07-05 18:23 | PROGRESS NOTE ---
Daily Progress Note Providers to CC ~ Antibiotic Timeout Antibiotic Ordered?: Yes Subjective The patient had a left upper lobe atelectasis and had a bronchoscopy today a mucus plug was found- the patient was currently stable however remains on a ventilator on 60% FiO2. Objective Vital Signs Date Time Temp Pulse Resp B/P (MAP) Pulse Ox O2 Delivery O2 Flow Rate FiO2 07/05/24 18:00 98.4 76 24 139/58 (85) 96 07/05/24 17:00 60 07/05/24 15:55 Mechanical Ventilator Result Diagram: 07/05/24 0210 07/05/24 0210 Gen. Sedated and intubated on a ventilator Lungs clear to ascultation bilaterally, no wheezes rales or rhonchi appreciated Heart irregular rhythm no murmurs rubs or clicks noted Abdomen soft nontender bowel sounds are normoactive Lower extremities no clubbing cyanosis, nor edema appreciated bilaterally Coagulation Studies Laboratory Tests Test 07/03/24 20:05 Prothrombin Time 11.3 SECONDS (9.0-12.0) INR International Normalized Ratio 1.1 INR Activated Partial Thromboplast Time 27 SECONDS (22-32) Coagulation Comments Problem\Assessment\Plan Problems/Diagnosis: (1) Sepsis # sepsis/septic shock- secondary to aspiration pneumonia On IV vancomycin IV Zosyn On Levophed # acute respiratory failure secondary to aspiration pneumonia Patient was son found the patient not breathing and had aspirated the patient has obstructive sleep apnea and is waiting for a CPAP 07/05 status post bronchoscopy with a large mucus plug causing left upper lobe atelectasis- remains on a ventilator at 60% FiO2 with a PEEP of 10 # AFib RVR On amiodarone and digoxin and esmolol 07/05 remains on amiodarone drip # MICKEY 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 Mckeon is on board and following the patient On a D5W drip 07/05 continues to improve- Dr. Mckeon assessed that the underlying cause is likely ATN # obstructive sleep apnea Per the patient's son- awaiting evaluation for a CPAP Date of Service: Jul 05, 2024 Billing Provider: JARET LARA DO Common Visit Codes: [id number] INP/OBS CARE(HIGH) JARET LARA DO Jul 05, 2024 18:23
--- NOTE | 2024-07-05 18:40 | CARDIOLOGY REPORT ---
APPROVED REPORT EXAM: Comprehensive 2D, Doppler, and color-flow Echocardiogram. 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 210.2 cm/s AoV VTI 32.1 cm AO Peak GR. 17.7 mmHg AO Mean GR. 9 mmHg LVOT VTI 26.62 cm LVOT Peak Compa. 145.0 cm/s BRENDAN(VTI)/BSA 3.45 cm2/m2 BRENDAN (VTI) 3.45 cm2 Mitral Valve MV E Velocity 65.5 cm/s MV Peak Gr. 5 mmHg MV DECEL TIME 232 ms MV A Velocity 52.9 cm/s MV PHT 80 ms E/A Ratio 1.2 MVA (PHT) 2.75 cm2 MV GIlp624.5 cm/s TDI Lateral E' P. V8.72 cm/s E/Lateral E' 7.5 Tricuspid Valve TR P. Velocity 292 cm/s RAP ESTIMATE 10 mmHg TR Peak Gr. 34 mmHg RVSP 44 mmHg LEFT VENTRICLE Normal LV size and wall thickness. Overall systolic function is normal. LVEF is 65-70%. RIGHT VENTRICLE Right ventricle is grossly normal in size and function. ATRIA The left atrium size is normal. AORTIC VALVE Trileaflet AV appears mildly sclerotic without stenosis. Trivial insufficiency. MITRAL VALVE Mild mitral annular calcification without stenosis. Trace regurgitation. TRICUSPID VALVE The tricuspid valve is normal in structure with mild regurgitation. PULMONIC VALVE The pulmonary valve is normal in structure with physiologic insufficiency. GREAT VESSELS The aortic root is normal in size. The ascending aorta is normal in size. The IVC is normal in size a nd collapses >50% with inspiration. PERICARDIUM Normal pericardium. No effusion. Other Information Study Quality: Fair Conclusion Normal LV size and wall thickness. Overall systolic function is normal. LVEF is 65-70%. Right ventricle is grossly normal in size and function. The left atrium size is normal. Trileaflet AV appears mildly sclerotic without stenosis. Trivial insufficiency. Mild mitral annular calcification without stenosis. Trace regurgitation. The tricuspid valve is normal in structure with mild regurgitation. Normal pericardium. No effusion.
[2024-07-05] MEDS: metoprolol tartrate 25mg tablet OGT SCH (18:47)
[2024-07-05] MEDS: VANCOmycin 1250MG/NS 250ml Bag 250 ML IV SCH (21:01)
[2024-07-06] VITALS (43 sets, daily range): BP systolic 96–149; BP diastolic 34–69; PULSE 50–121; RESP 18–30; O2SAT 9–100
[2024-07-06 03:14] LABS: BILIRUBIN,URINE SMALL (Neg); CLARITY,URINE TURBID (Clear); COLOR,URINE YELLOW (Yellow); GLUCOSE, URINE NEGATIVE (Neg); KETONES,URINE NEGATIVE (Neg); LEUKOCYTE ESTERASE ,URINE LARGE (Neg); NITRITES, URINE NEGATIVE (Neg); OCCULT BLOOD,URINE LARGE (Neg); PH,URINE 5.5 (4.8-8.0); PROTEIN,URINE 100 mg/dl (Neg)
[2024-07-06 03:15] LABS: BASOPHILS % (AUTO) 0.3 % (0-1); EOSINOPHILS # (AUTO) 0.1 X10'3 (0-0.9); EOSINOPHILS % (AUTO) 1.2 % (0-6); HEMATOCRIT 33.5 % (42.0-52.0); LYMPHOCYTES # (AUTO) 1.5 X10'3 (1.1-4.8); LYMPHOCYTES % (AUTO) 13.8 % (21-51); MEAN CORPUSCULAR HEMOGLOBIN 29.3 PG (27.0-31.0); MEAN CORPUSCULAR HGB CONC 32.9 g/dL (33.0-36.5); MEAN CORPUSCULAR VOLUME 88.9 FL (78-98); MEAN PLATELET VOLUME 10.5 FL (7.4-10.4); MONOCYTES # (AUTO) 0.9 X10'3 (0-0.9); MONOCYTES % (AUTO) 8.5 % (2-12); NEUTROPHILS # (AUTO) 8.3 X10'3 (1.8-7.7); NEUTROPHILS % (AUTO) 76.2 % (42-75); PLATELET COUNT 120 X10'3 (140-440); RED BLOOD COUNT 3.77 X10'6 (4.70-6.10); RED CELL DISTRIBUTION WIDTH 17.6 % (11.5-14.5); WHITE BLOOD COUNT 10.9 X10'3 (4.5-11.0)
[2024-07-06 03:17] LABS: UA COLLECTION TYPE FOLEY CATH
[2024-07-06 03:25] LABS: ALANINE AMINOTRANSFERASE 88 U/L (12-78); ALBUMIN 2.3 G/DL (3.4-5.0); ALBUMIN/GLOBULIN RATIO 0.8 (1.1-1.5); ALKALINE PHOSPHATASE 176 IU/L (46-116); ANION GAP 6 (8-16); ASPARTATE AMINO TRANSFERASE 71 U/L (10-37); BILIRUBIN,TOTAL 2.9 MG/DL (0.1-1.0); BLOOD UREA NITROGEN 68 MG/DL (7-18); BUN/CREATININE RATIO 50.7 (10.0-20.0); CALCIUM 8.2 MG/DL (8.5-10.1); CHLORIDE 110 MMOL/L (99-107); CREATININE 1.34 MG/DL (0.60-1.10); GLUCOSE 187 MG/DL (70-104); MAGNESIUM 2.3 MG/DL (1.5-2.4); PHOSPHORUS 2.3 MG/DL (2.3-4.5); POTASSIUM 3.6 MMOL/L (3.5-5.1); SODIUM 142 MMOL/L (135-145); TOTAL CARBON DIOXIDE 25.6 MMOL/L (24-32); TOTAL PROTEIN 5.3 G/DL (6.4-8.2); eCRCL 65 ML/MIN; eGFR 56 ML/MIN
[2024-07-06 03:29] LABS: BACTERIA,URINE 2+ /HPF (Neg); RBC,URINE TNTC /HPF (0-2); SQUAMOUS EPITHELIAL CELL,UR FEW /LPF (FEW)
[2024-07-06 04:26] LABS: ABG BASE EXCESS -3.1 mmol/L (-2.0-3.0); ABG HCO3 19.7 mmol/L (21.0-28.0); ABG OXYGEN SATURATION 97.7 % (94.0-98.0); ABG PCO2 (T) 27.3 mmHg (35.0-48.0); ABG PH (T) 7.475 (7.350-7.450); ABG PO2 (T) 96.2 mmHg (83.0-108.0); FCOHb 0.3 % (0.5-1.5); FHHb 2.3 % (0.0-5.0); FMetHb 0.3 % (0.0-1.5); FO2Hb 97.1 % (94.0-98.0); MODE ac/prvc; PATIENT TEMPERATURE 36.6; PEEP 10 cm H2O; RESPIRATORY RATE 24 b/min; TIDAL VOLUME 450 mL
--- NOTE | 2024-07-06 06:22 | RADIOLOGY REPORT ---
CHEST RADIOGRAPH Indication: Intubated Technique: Single frontal view of the chest was obtained COMPARISON: DI CHEST,SINGLE VIEW on DOS: 07/05/24, DI CHEST,SINGLE VIEW on DOS: 07/04/24, DI CHEST,SINGL E VIEW on DOS: 07/03/24, XR CHEST 1 VW on DOS: 07/02/24, XR CHEST 1 VW on DOS: 07/01/24 FINDINGS: Lines and Tubes: Endotracheal tube, enteric catheter and right central venous catheter in satisfactor y position. Lungs: Congestion Pleura: No effusion. No pneumothorax. Cardiomediastinal contours: Cardiomegaly Bones: Unremarkable IMPRESSION: Lines and tubes in satisfactory position. No significant interval change.
[2024-07-06] MEDS: apixaban 5mg tablet PO SCH (08:35)
--- NOTE | 2024-07-06 10:46 | PROGRESS NOTE ---
Progress Note Dictate Providers to CC ~ Antibiotic Ordered?: Yes Subjective Subjective Esther stable overnight since last evaluation, nurses also report no new events since last evaluation, creatinine is improving daily, recommend IV fluids to match his output as close as possible Objective Vitals Vital Signs Date Time Temp Pulse Resp B/P (MAP) Pulse Ox O2 Delivery O2 Flow Rate FiO2 07/06/24 14:00 98.6 66 21 118/55 (76) 95 07/06/24 13:00 40 07/06/24 11:38 Mechanical Ventilator Lab Results: 07/06/24 0230 07/06/24 0230 Coagulation Studies Laboratory Tests Test 07/03/24 20:05 Prothrombin Time 11.3 SECONDS (9.0-12.0) INR International Normalized Ratio 1.1 INR Activated Partial Thromboplast Time 27 SECONDS (22-32) Coagulation Comments Other Results I & O 07/06/24 07:00 Intake Total 6020.24 ml Output Total 3335 ml Balance 2685.24 ml Intake Free Water 1000 ml IV Total 3470.24 ml Tube Feeding 1500 ml Other 50 ml Output Urine Total 3335 ml Problem\Assessment\Plan Problems/Diagnosis: (1) MICKEY (acute kidney injury) Assessment & Plan: Most consistent with ATN in the setting of prolonged hypotension and sepsis, on examination I believe he is hypovolemic today, would recommend continuing IVF,With either lactated Ringer's or normal saline starting at 125/h, try to match his output as close as possible (2) Electrolyte abnormality Assessment & Plan: Hypernatremia, resolved with free water, now that is corrected, he still has ongoing need for fluid replacement, recommend lactated Ringer's or normal saline to match output (3) Sepsis Assessment & Plan: Managed by primary team continue antibiotics, reviewed for proper dosing, toxicity and drug drug interactions NAZARIO ALVA III DO Jul 06, 2024 10:46
[2024-07-06] MEDS: metoprolol tartrate 25mg tablet OGT SCH ×2 (11:08→17:40)
[2024-07-06] MEDS: docusate sodium 100mg/10ml UD cup OGT SCH (13:08)
--- NOTE | 2024-07-06 13:42 | PROGRESS NOTE- Residence ---
Progress Note - Resident Providers to CC Resident Creating Document: ROSE TONY RES ~ Antibiotic Timeout Antibiotic Ordered?: Yes Subjective Patient was seen and examined in ICU. Opens his eyes to painful stimuli. FiO2 requirement reduced to 30%, His PEEP to 7. Hypernatremia resolved, so D5 W discontinued. Plan to undergo SBT so we can extubate today. Objective Vital Signs Date Time Temp Pulse Resp B/P (MAP) Pulse Ox O2 Delivery O2 Flow Rate FiO2 07/06/24 13:00 98.8 66 19 127/57 (80) 93 07/06/24 12:44 30 07/06/24 11:38 Mechanical Ventilator General: Still on mechanical ventilation HEENT: Conjunctiva pink, Sclera clear, Mucus Membranes moist. Neck: Supple without masses and tenderness. Resp: Reduced air entry to left upper lung Heart: Irregularly irregular rhythm Abdomen: Soft and non tender no organomegaly Extremities: No cyanosis,clubbing or edema. Neurology: Opens eyes to painful stimuli Skin: Warm and Dry. Result Diagram: 07/06/24 0230 07/06/24 0230 Coagulation Studies Laboratory Tests Test 07/03/24 20:05 Prothrombin Time 11.3 SECONDS (9.0-12.0) INR International Normalized Ratio 1.1 INR Activated Partial Thromboplast Time 27 SECONDS (22-32) Coagulation Comments Advance Care Planning Advanced Care plannin - 30 Minutes Assessment Assessment This is a 54-year-old male who is ex-smoker (40 years smoking history) and morbidly obese, with a history of COPD was transferred from [facility] for further evaluation and management of sepsis, altered mental status, acute hypoxemic respiratory failure, and acute kidney injury. Patient was initially presented to the transferring facility for altered mentation and found down for prolonged period of time (altered, labored breathing, foaming at mouth). He was initially on BiPAP and later intubated. His FiO2 requirements had been gone up to 90%. He had been on two pressors i.e. Levophed and vasopressin. Plan Plan Respiratory: Acute hypoxemic respiratory failure 2/2 likely aspiration pneumonia History of COPD On mechanical ventilation; FiO2 70%, PEEP 10 Infectious disease: Sepsis present on admission Source likely aspiration pneumonia WBC trending up, 21.5 today Keep map > 65, on pressors Continue vancomycin and Zosyn Cardiac: Augment hemodynamics with pressors On Levophed 0.4 mcg/kg/minute Follow echo with bubble AFib with RVR; HR in 140s - on amiodarone drip, undergoing digitalization Neurologic: Acute metabolic encephalopathy, likely 2/2 sepsis Currently sedated Renal: Acute renal failure, likely vasomotor nephropathy Creatinine trending down from > for to 2.35 today Nephrology consulted, Dr. Puente on board Monitor BMP Morbid obesity: Can not exclude SALLY and OHS July 04, 2024: He is being treated for sepsis secondary to pneumonia, acute hypoxemic respiratory failure, and MICKEY. He has leukocytosis with a WBC of 21.5, creatinine 2.35. He still requires FiO2 80% with PEEP of 12. He is in AFib with RVR (upper 140s), despite being on amiodarone drip 0.5 mcg, we increased to 1 mcg. Also, patient is being digitalized. Received 1st dose of digoxin 0.5 mg. July 05, 2024: Continued to remain requiring high FiO2 but reduced from yesterday; 60% and 80% respectively Stable hemodynamics with pressors i.e. Levophed 0.6 mcg WBC down trended to 13.4 from 21.5 yesterday MICKEY; kidney function improving, creatinine 1.68 today, down from 2.35 yesterday - Dr Mckeon on board CT chest shows left upper lobe atelectasis/consolidation suggestive of pneumonia Undergone fibrotic bronchoscopy; mucus plug left upper lobe removed. Mucomyst/acetylcysteine solution initiated Echo shows RVSP 44, an LV EF 65-70%. No right ventricle strain TSH, and T4 normal . A1c 6.1 Cardioverted twice with 150 and 200 joules respectively AFib; Ventricular rate controlled with esmolol, discontinued. Continue metoprolol 25 mg p.o. every 6 hours July 06, 2024: Still requires minimal pressors i.e. Levophed 0.04 mcg FiO2 requirement reduced to 30 and PEEP to 7.0 Currently undergoes sedation vacation, and spontaneous breathing trial. The plan is to extubate him today. Hypernatremia resolved, D5W discontinued Creatinine is steadily improving; 1.34 today Still in AFib, but heart rate controlled with metoprolol. On Eliquis 5 mg twice daily for pericardioversion. Lines and tubes: ETT 0 G-tube Zamora catheter R IJ CBC Right radial A-line Rose Tony ICU Resident Date of Service: Jul 06, 2024 Billing Provider: JEFFERSON JACOBS MD,ROSE, RES Jul 06, 2024 13:42
--- NOTE | 2024-07-06 16:09 | PROCEDURE NOTE- Residance ---
Procedure Note Providers to CC CC: ROSE TONY RES ~ Planned Procedure Right Internal Jugular Central Line/Faisal Cath. Indications Hemodialysis Feed Miller Rose Tony - Resident, supervised by Dr. Lewis Type of Anesthesia Lidocaine 1% Informed Consent The procedure was emergent, the patient was unable to provide consent, and a designee was not immediately available. Description Started with the first handwash prior to starting sterile technique. Patient already had a central line in place. Guidwire was inserted through the central line catheter. The central line catheter was then removed and Quiton was inserted after dilation. Estimated Blood Loss 10 cc Complication none. X-Ray Findings Quiton cath in SVC. Date of Service: Jul 06, 2024 Billing Provider: JEFFERSON LEWIS MD, SHAMS, YESSI Jul 06, 2024 16:09
[2024-07-06] MEDS: esmolol/sodium cl bag 250 ML IV SCH (18:21)
--- NOTE | 2024-07-06 20:44 | PROGRESS NOTE ---
Daily Progress Note Providers to CC ~ Antibiotic Timeout Antibiotic Ordered?: Yes Subjective Patient was renal function is almost normalized he however remains intubated on a ventilator thus an unsuccessful extubation trial. Objective Vital Signs Date Time Temp Pulse Resp B/P (MAP) Pulse Ox O2 Delivery O2 Flow Rate FiO2 07/06/24 19:51 71 07/06/24 19:03 20 96 50 07/06/24 19:00 99.0 119/54 (75) Mechanical Ventilator Result Diagram: 07/06/24 0230 07/06/24 0230 Gen. Sedated and intubated on a ventilator Lungs clear to ascultation bilaterally, no wheezes rales or rhonchi appreciated Heart irregular rhythm no murmurs rubs or clicks noted Abdomen soft nontender bowel sounds are normoactive Lower extremities no clubbing cyanosis, nor edema appreciated bilaterally Coagulation Studies Laboratory Tests Test 07/03/24 20:05 Prothrombin Time 11.3 SECONDS (9.0-12.0) INR International Normalized Ratio 1.1 INR Activated Partial Thromboplast Time 27 SECONDS (22-32) Coagulation Comments Problem\Assessment\Plan Problems/Diagnosis: (1) Sepsis # sepsis/septic shock- secondary to aspiration pneumonia On IV vancomycin IV Zosyn On Levophed # acute respiratory failure secondary to aspiration pneumonia Patient was son found the patient not breathing and had aspirated the patient has obstructive sleep apnea and is waiting for a CPAP 07/05 status post bronchoscopy with a large mucus plug causing left upper lobe atelectasis- remains on a ventilator at 60% FiO2 with a PEEP of 10 07/06 improving- on 50% FiO2 with a PEEP of 7.0 # AFib RVR On amiodarone and digoxin and esmolol 07/05 remains on amiodarone drip # MICKEY 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 Mckeon assessed that the underlying cause is likely ATN 07/06 continues to improve # obstructive sleep apnea Per the patient's son- awaiting evaluation for a CPAP Date of Service: Jul 06, 2024 Billing Provider: JARET LARA DO Common Visit Codes: [id number] INP/OBS CARE(HIGH) JARET LARA DO Jul 06, 2024 20:44
[2024-07-07] VITALS (48 sets, daily range): BP systolic 111–178; BP diastolic 45–87; PULSE 51–75; RESP 15–27; O2SAT 90–98
[2024-07-07 01:49] LABS: BASOPHILS % (AUTO) 0.2 % (0-1); EOSINOPHILS # (AUTO) 0.1 X10'3 (0-0.9); EOSINOPHILS % (AUTO) 1.6 % (0-6); HEMATOCRIT 31.4 % (42.0-52.0); HEMOGLOBIN 10.2 g/dl (14.0-17.9); LYMPHOCYTES % (AUTO) 12.9 % (21-51); MEAN CORPUSCULAR HEMOGLOBIN 28.9 PG (27.0-31.0); MEAN CORPUSCULAR HGB CONC 32.4 g/dL (33.0-36.5); MEAN CORPUSCULAR VOLUME 89.2 FL (78-98); MEAN PLATELET VOLUME 10.8 FL (7.4-10.4); MONOCYTES # (AUTO) 0.6 X10'3 (0-0.9); MONOCYTES % (AUTO) 7.7 % (2-12); NEUTROPHILS # (AUTO) 6.2 X10'3 (1.8-7.7); NEUTROPHILS % (AUTO) 77.6 % (42-75); PLATELET COUNT 98 X10'3 (140-440); RED BLOOD COUNT 3.52 X10'6 (4.70-6.10); RED CELL DISTRIBUTION WIDTH 17.6 % (11.5-14.5)
[2024-07-07 02:03] LABS: ALANINE AMINOTRANSFERASE 181 U/L (12-78); ALBUMIN 2.1 G/DL (3.4-5.0); ALBUMIN/GLOBULIN RATIO 0.7 (1.1-1.5); ALKALINE PHOSPHATASE 265 IU/L (46-116); ANION GAP 4 (8-16); ASPARTATE AMINO TRANSFERASE 119 U/L (10-37); BILIRUBIN,TOTAL 4.1 MG/DL (0.1-1.0); BLOOD UREA NITROGEN 46 MG/DL (7-18); BUN/CREATININE RATIO 37.4 (10.0-20.0); CALCIUM 8.1 MG/DL (8.5-10.1); CHLORIDE 111 MMOL/L (99-107); CREATININE 1.23 MG/DL (0.60-1.10); GLUCOSE 162 MG/DL (70-104); PHOSPHORUS 2.4 MG/DL (2.3-4.5); POTASSIUM 3.9 MMOL/L (3.5-5.1); SODIUM 143 MMOL/L (135-145); TOTAL CARBON DIOXIDE 28.5 MMOL/L (24-32); TOTAL PROTEIN 5.2 G/DL (6.4-8.2); eCRCL 71 ML/MIN; eGFR 61 ML/MIN
[2024-07-07 02:06] LABS: BILIRUBIN,URINE MODERATE (Neg); CLARITY,URINE SLIGHTLY CLOUDY (Clear); COLOR,URINE YELLOW (Yellow); GLUCOSE, URINE NEGATIVE (Neg); KETONES,URINE NEGATIVE (Neg); LEUKOCYTE ESTERASE ,URINE NEGATIVE (Neg); NITRITES, URINE NEGATIVE (Neg); OCCULT BLOOD,URINE LARGE (Neg); PROTEIN,URINE 100 mg/dl (Neg); UA COLLECTION TYPE NON-SPECIFIED
[2024-07-07 02:15] LABS: BACTERIA,URINE NONE SEEN /HPF (Neg); WBC,URINE NONE SEEN /HPF (0-4)
[2024-07-07 02:16] LABS: MUCUS STRANDS FEW /LPF (Neg); SQUAMOUS EPITHELIAL CELL,UR FEW /LPF (FEW)
[2024-07-07 03:39] LABS: ABG BASE EXCESS -0.2 mmol/L (-2.0-3.0); ABG HCO3 24.5 mmol/L (21.0-28.0); ABG OXYGEN SATURATION 96.8 % (94.0-98.0); ABG PCO2 (T) 38.1 mmHg (35.0-48.0); ABG PH (T) 7.421 (7.350-7.450); ABG PO2 (T) 81.8 mmHg (83.0-108.0); FCOHb 0.4 % (0.5-1.5); FHHb 3.2 % (0.0-5.0); FMetHb 0.3 % (0.0-1.5); FO2Hb 96.1 % (94.0-98.0); MODE ac/prvc; PATIENT TEMPERATURE 35.7; PEEP 7 cm H2O; RESPIRATORY RATE 20 b/min; TIDAL VOLUME 450 mL; TOTAL HEMOGLOBIN 10.7 G/dl (13.5-17.5)
[2024-07-07 04:33] LABS: CHLORIDE,URINE RANDOM < 50 MEQ/L; SODIUM,URINE RANDOM 34 MEQ/L
[2024-07-07] MEDS: VANCOMYCIN LEVEL IV ONE (06:30)
--- NOTE | 2024-07-07 07:23 | RADIOLOGY REPORT ---
EXAM: XR Chest, 1 View CLINICAL INDICATION: Intubated TECHNIQUE: Frontal view of the chest. COMPARISON: DI CHEST,SINGLE VIEW on DOS: 07/06/24, DI CHEST,SINGLE VIEW on DOS: 07/05/24, DI CHEST,SI NGLE VIEW on DOS: 07/04/24, DI CHEST,SINGLE VIEW on DOS: 07/03/24, XR CHEST 1 VW on DOS: 07/02/24 FINDINGS: LUNGS AND PLEURAL SPACES: See below. HEART: Cardiomegaly with mild congestion. MEDIASTINUM: Unremarkable. Normal mediastinal contour. BONES/JOINTS: Unremarkable. No acute fracture. TUBES, LINES AND DEVICES: Right internal jugular central venous catheter tip in the superior vena c christal. Left internal jugular central venous catheter tip in the superior vena cava. The endotracheal tube (ETT) is in satisfactory position. Enteric tube tip cannot be seen but is below the diaphragm. OTHER FINDINGS: . . .. IMPRESSION: Cardiomegaly with mild congestion.
--- NOTE | 2024-07-07 08:45 | PROGRESS NOTE ---
Progress Note Dictate Providers to CC ~ Central Line/PICC still needed: Yes Central Line/PICC Necessity: Prolonged IV access req Zamora Indications Met/Not Met: F/C Indications Met Antibiotic Ordered?: Yes Subjective Subjective continues to be on ventilator, with 40% FiO2. continues to remain critically ill. renal function continues to get better. Platelets are dropping. Patient is on amiodarone drip, Pepcid and Piperacillin- Tazobactam - any of them including sepsis can contribute to this. LFTS are going up. Again, could be from amiodarone drip and Piperacillin- Tazobactam. , Icu is rounding and will decide about these. I will sign off from renal standpoint. CXR shows left sided basal atelectasis. - needs pulmonary toileting. Objective Vitals Vital Signs Date Time Temp Pulse Resp B/P (MAP) Pulse Ox O2 Delivery O2 Flow Rate FiO2 07/07/24 08:20 64 20 Mechanical Ventilator 40 07/07/24 08:09 97 07/07/24 06:00 97.9 136/62 (86) Lab Results: 07/07/24 0120 07/07/24 0120 Objective on ventilator, obese built/ CVS: S1S2+ RS: CTA abd: BS+ Ext: Edema present in both upper and lower extremities. Coagulation Studies Laboratory Tests Test 07/03/24 20:05 Prothrombin Time 11.3 SECONDS (9.0-12.0) INR International Normalized Ratio 1.1 INR Activated Partial Thromboplast Time 27 SECONDS (22-32) Coagulation Comments Advance Care Planning Advanced Care plannin - 30 Minutes Problem\Assessment\Plan Problems/Diagnosis: (1) MICKEY (acute kidney injury) Assessment & Plan: Most consistent with ATN in the setting of prolonged hypotension and sepsis, onow much better. will sign off from renal standpoint. (2) Electrolyte abnormality Assessment & Plan: Hypernatremia, resolved with free water, stop iv fluids. getting edematous. (3) Sepsis Assessment & Plan: Managed by primary team continue antibiotics, reviewed for proper dosing, toxicity and drug drug interactions (4) Thrombocytopenia Assessment & Plan: as discussed above (5) Transaminitis Assessment & Plan: amiodarone? ? zosyn. as discussed above. JAMSHID REVELES MD Jul 07, 2024 08:45
[2024-07-07] MEDS: metoprolol tartrate 25mg tablet OGT SCH (09:36)
--- NOTE | 2024-07-07 12:28 | PROGRESS NOTE ---
Subjective Subjective Patient was seen and examined in ICU. Opens his eyes to painful stimuli. FiO2 requirement reduced to 30%, His PEEP to 7. Hypernatremia resolved, so D5 W discontinued. Plan to undergo SBT so we can extubate today. Reason for visit: Pulmonary critical care follow-up Reviewed: Care Plan, H&P, Medications, Radiology Review of Systems Changes from previous H/P or p: No Changes Daily Progress Note Exam Vitals Vital Signs Date Time Temp Pulse Resp B/P (MAP) Pulse Ox O2 Delivery O2 Flow Rate FiO2 07/07/24 11:35 63 18 Mechanical Ventilator 40 07/07/24 11:24 94 07/07/24 11:00 98.8 120/59 (79) Result Diagram: 07/07/24 0120 07/07/24 0120 Exam General: Still on mechanical ventilation HEENT: Conjunctiva pink, Sclera clear, Mucus Membranes moist. Neck: Supple without masses and tenderness. Resp: CTA b/l Heart: Irregularly irregular rhythm Abdomen: Soft and non tender no organomegaly Extremities: No cyanosis,clubbing or edema. Neurology: Opens eyes to painful stimuli Skin: Warm and Dry. Results Coagulation Studies Laboratory Tests Test 07/03/24 20:05 Prothrombin Time 11.3 SECONDS (9.0-12.0) INR International Normalized Ratio 1.1 INR Activated Partial Thromboplast Time 27 SECONDS (22-32) Coagulation Comments VTE VTE Risk Score VTE Risk Score Reference Ranges: Score 0-1 = Low Risk (Aggressive mobilization; early ambulation; no VTE prophylaxis required) Score 2: Moderate Risk (Intermittent/Pneumatic Compression Device OR Lovenox/Heparin/Coumadin) Score 3-4: High Risk (Intermittent/Pneumatic Compression Device AND Lovenox/Heparin/Coumadin) Score > or = 5: Highest Risk (Intermittent/Pneumatic Compression Device AND Lovenox/Heparin/Coumadin) Assessment/Plan Assessment This is a 54-year-old male who is ex-smoker (40 years smoking history) and morbidly obese, with a history of COPD was transferred from [facility] for further evaluation and management of sepsis, altered mental status, acute hypoxemic respiratory failure, and acute kidney injury. Patient was initially presented to the transferring facility for altered mentation and found down for prolonged period of time (altered, labored breathing, foaming at mouth). He was initially on BiPAP and later intubated. His FiO2 requirements had been gone up to 90%. He had been on two pressors i.e. Levophed and vasopressin. Plan Respiratory: Acute hypoxemic respiratory failure 2/2 likely aspiration pneumonia History of COPD On mechanical ventilation; vent settings AC/PRVC 20/450/7/40% Infectious disease: Sepsis present on admission Source likely aspiration pneumonia WBC trending up, 8.0 Keep map > 65, on pressors Continue vancomycin and Zosyn Cardiac: Augment hemodynamics with pressors prn Off Levophed Follow echo with bubble AFib with RVR; resolved and currently in sinus rhythm. Discontinue amiodarone and continue metoprolol and digoxin if needed. Neurologic: Acute metabolic encephalopathy, likely 2/2 sepsis Currently sedated Renal: Acute renal failure, likely vasomotor nephropathy and improving Creatinine trending down . Nephrology consulted, Dr. Puente following. Monitor BMP Morbid obesity: Can not exclude SALLY and OHS Lines and tubes: ETT 0 G-tube Zamora catheter R IJ CBC Right radial A-line Overall prognosis: Guarded Critical care time 35 minutes. Expected Outcome/Goals Expected Outcomes/Goals: maintain stable wt, TF tolerance, bowel regularity, optimal skin integrity JEFFERSON JACOBS MD Jul 07, 2024 12:27
[2024-07-07] MEDS: vancomycin/NS 1 GM ADD-VANTAGE 250 ML IV SCH (12:44)
[2024-07-07] MEDS: dexmedetomidin/NS 400mcg/100ml 100 ML IV SCH (17:49)
--- NOTE | 2024-07-07 19:29 | RADIOLOGY REPORT ---
INDICATION: elevated LFT TECHNIQUE: Multiple real-time sonographic images of the abdomen were obtained. COMPARISON: None FINDINGS: Parenchymal changes suggesting steatosis.. The liver measures 17.16 cm. No intrahepatic bi liary ductal dilatation is noted. Not well visualized. There is a large anechoic collection with echogenic material noted within it in the right upper quadrant this may represent abnormal gallbladder or gallbladder abscess or biliary le ak gallbladder has been removed. Correlate with clinical setting. . No gallstones or sludge is seen . The common duct measures 0.69 cm and is unremarkable status post cholecystectomy. Is mildly dilat ed the gallbladder has not been.. The right kidney measures 11.07 cm. No hydronephrosis. The pancreas is not well visualized due to obscuration from bowel gas. IMPRESSION: 1. Gallbladder not visualized. 2. In the right upper quadrant is a large anechoic collection with echogenic material within it. Martita elate with patient surgical history. 3. If the gallbladder has been removed. This may represent a biliary leak or infection in the gallbl adder fossa. HS:Y
--- NOTE | 2024-07-07 20:29 | PROGRESS NOTE ---
Daily Progress Note Providers to CC ~ Antibiotic Timeout Antibiotic Ordered?: Yes Subjective The patient remains septic- renal function is improving- the patient was bradycardic today and his liver enzymes markedly up trended thus amiodarone was discontinued. Dr. Lewis did a spontaneous breathing trial however the patient failed. Objective Vital Signs Date Time Temp Pulse Resp B/P (MAP) Pulse Ox O2 Delivery O2 Flow Rate FiO2 07/07/24 20:00 97.0 54 25 118/45 (69) 90 Mechanical Ventilator 45 Result Diagram: 07/07/24 0120 07/07/24 0120 Gen. Sedated and intubated on a ventilator Lungs clear to ascultation bilaterally, no wheezes rales or rhonchi appreciated Heart irregular rhythm no murmurs rubs or clicks noted Abdomen soft nontender bowel sounds are normoactive Lower extremities no clubbing cyanosis, nor edema appreciated bilaterally Coagulation Studies Laboratory Tests Test 07/03/24 20:05 Prothrombin Time 11.3 SECONDS (9.0-12.0) INR International Normalized Ratio 1.1 INR Activated Partial Thromboplast Time 27 SECONDS (22-32) Coagulation Comments Problem\Assessment\Plan Problems/Diagnosis: (1) Sepsis # sepsis/septic shock- secondary to aspiration pneumonia On IV vancomycin IV Zosyn On Levophed # acute respiratory failure secondary to aspiration pneumonia Patient was son found the patient not breathing and had aspirated the patient has obstructive sleep apnea and is waiting for a CPAP 07/05 status post bronchoscopy with a large mucus plug causing left upper lobe atelectasis- remains on a ventilator at 60% FiO2 with a PEEP of 10 07/06 improving- on 50% FiO2 with a PEEP of 7.0 07/07 slightly improved on 45% FiO2 however the patient failed spontaneous breathing trial # AFib RVR On amiodarone and digoxin and esmolol 07/05 remains on amiodarone drip 07/07 amiodarone was discontinued due the patient was slightly bradycardic and l iver function test markedly up trended, esmolol was discontinued as well patient was on p.o. metoprolol # transaminitis with a significant up trend- 07/07 Amiodarone drip was discontinued today - Ultrasound of the abdomen was concerning for possible bile leak gallbladder was absent # MICKEY Renal function is improving Store Stock Associate Dr. Mckeon is on board and following the patient On a D5W drip 07/05 continues to improve- Dr. Mckeon assessed that the underlying cause is likely ATN 07/06 continues to improve 07/07 continues to improve- nephrology has signed off # obstructive sleep apnea Per the patient's son- awaiting evaluation for a CPAP Date of Service: Jul 07, 2024 Billing Provider: JARET LARA DO Common Visit Codes: [id number] INP/OBS CARE(HIGH) JARET LARA DO Jul 07, 2024 20:29
[2024-07-08] VITALS (50 sets, daily range): BP systolic 107–190; BP diastolic 43–88; PULSE 50–75; RESP 19–27; O2SAT 88–99
--- NOTE | 2024-07-08 02:26 | PROGRESS NOTE ---
Progress Note Dictate Providers to CC ~ Progress Note: 54 y/o M i saw by the video has ARDS Aspiration PNA, MICKEY Sepsis COPD Doing OK this shift on the vent not on any pressors on Fentanyl for sedation Kidney fxn improved nephro signed off on Vent AC PRVC PEEP 7 FIO2 45% TV 450 Rate 20 PO2 was 81 on blood gas Antibiotic Ordered?: No Objective Vitals Vital Signs Date Time Temp Pulse Resp B/P (MAP) Pulse Ox O2 Delivery O2 Flow Rate FiO2 07/08/24 02:14 52 07/08/24 02:00 97.3 22 119/56 (77) 92 Mechanical Ventilator 50 Lab Results: 07/07/24 0120 07/07/24 0120 Coagulation Studies Laboratory Tests Test 07/03/24 20:05 Prothrombin Time 11.3 SECONDS (9.0-12.0) INR International Normalized Ratio 1.1 INR Activated Partial Thromboplast Time 27 SECONDS (22-32) Coagulation Comments Problem\Assessment\Plan Additional Plan pt clinically improving continue present plan of care we will monitor no change to vent settings Sepsis Screening Reassessment Date: Jul 08, 2024 RUSSELL CONTEH MD Jul 08, 2024 02:26
[2024-07-08 03:03] LABS: BASOPHILS % (AUTO) 0.5 % (0-1); EOSINOPHILS # (AUTO) 0.2 X10'3 (0-0.9); EOSINOPHILS % (AUTO) 2.3 % (0-6); HEMATOCRIT 30.2 % (42.0-52.0); HEMOGLOBIN 9.8 g/dl (14.0-17.9); LYMPHOCYTES % (AUTO) 9.9 % (21-51); MEAN CORPUSCULAR HEMOGLOBIN 28.8 PG (27.0-31.0); MEAN CORPUSCULAR HGB CONC 32.4 g/dL (33.0-36.5); MEAN CORPUSCULAR VOLUME 88.9 FL (78-98); MEAN PLATELET VOLUME 10.5 FL (7.4-10.4); MONOCYTES # (AUTO) 0.5 X10'3 (0-0.9); MONOCYTES % (AUTO) 5.7 % (2-12); NEUTROPHILS # (AUTO) 7.9 X10'3 (1.8-7.7); NEUTROPHILS % (AUTO) 81.6 % (42-75); PLATELET COUNT 102 X10'3 (140-440); RED CELL DISTRIBUTION WIDTH 17.6 % (11.5-14.5); WHITE BLOOD COUNT 9.6 X10'3 (4.5-11.0)
[2024-07-08 03:24] LABS: ALANINE AMINOTRANSFERASE 164 U/L (12-78); ALBUMIN 2.1 G/DL (3.4-5.0); ALBUMIN/GLOBULIN RATIO 0.7 (1.1-1.5); ALKALINE PHOSPHATASE 256 IU/L (46-116); ANION GAP 4 (8-16); ASPARTATE AMINO TRANSFERASE 53 U/L (10-37); BILIRUBIN,TOTAL 2.3 MG/DL (0.1-1.0); BLOOD UREA NITROGEN 34 MG/DL (7-18); BUN/CREATININE RATIO 35.8 (10.0-20.0); CALCIUM 8.2 MG/DL (8.5-10.1); CHLORIDE 110 MMOL/L (99-107); CREATININE 0.95 MG/DL (0.60-1.10); GLUCOSE 152 MG/DL (70-104); MAGNESIUM 1.8 MG/DL (1.5-2.4); PHOSPHORUS 1.7 MG/DL (2.3-4.5); POTASSIUM 3.9 MMOL/L (3.5-5.1); SODIUM 143 MMOL/L (135-145); TOTAL CARBON DIOXIDE 29.2 MMOL/L (24-32); TOTAL PROTEIN 5.3 G/DL (6.4-8.2); eCRCL 92 ML/MIN; eGFR 83 ML/MIN
[2024-07-08 03:54] LABS: ABG BASE EXCESS -0.3 mmol/L (-2.0-3.0); ABG HCO3 23.2 mmol/L (21.0-28.0); ABG OXYGEN SATURATION 94.3 % (94.0-98.0); ABG PCO2 (T) 33.6 mmHg (35.0-48.0); ABG PH (T) 7.457 (7.350-7.450); FCOHb 1.1 % (0.5-1.5); FHHb 5.6 % (0.0-5.0); FMetHb 0.3 % (0.0-1.5); MODE PRVC; PATIENT TEMPERATURE 37.2; PEEP 7 cm H2O; RESPIRATORY RATE 20 b/min; TIDAL VOLUME 450 mL; TOTAL HEMOGLOBIN 10.4 G/dl (13.5-17.5)
--- NOTE | 2024-07-08 07:00 | RADIOLOGY REPORT ---
CHEST RADIOGRAPH Indication: reeval lung status Technique: Frontal view of the chest. Comparison: DI CHEST,SINGLE VIEW on DOS: 07/07/24, DI CHEST,SINGLE VIEW on DOS: 07/06/24, DI CHEST,SING LE VIEW on DOS: 07/05/24, DI CHEST,SINGLE VIEW on DOS: 07/04/24, DI CHEST,SINGLE VIEW on DOS: 07/03/24, DI CHEST,SINGLE VIEW on DOS: 07/07/24 FINDINGS: LUNGS AND PLEURAL SPACES: See below. HEART: Cardiomegaly with mild congestion. MEDIASTINUM: Unremarkable. Normal mediastinal contour. BONES/JOINTS: Unremarkable. No acute fracture. TUBES, LINES AND DEVICES: Right internal jugular central venous catheter tip in the superior vena c christal. Left internal jugular central venous catheter tip in the superior vena cava. The endotracheal tube (ETT) is in satisfactory position. Enteric tube tip cannot be seen but is below the diaphragm. OTHER FINDINGS: . . .. IMPRESSION: Cardiomegaly with mild congestion.
--- NOTE | 2024-07-08 11:37 | PROGRESS NOTE ---
Subjective Subjective Patient was seen and examined in ICU. Opens his eyes to painful stimuli.FiO2 requirement reduced to 40% and PEEP to 5. Hypernatremia resolved, so D5 W discontinued. SBT plan for today. Sedation on hold. Reason for visit: Pulmonary critical care follow-up Reviewed: Care Plan, H&P, Medications, Radiology Daily Progress Note Exam Vitals Vital Signs Date Time Temp Pulse Resp B/P (MAP) Pulse Ox O2 Delivery O2 Flow Rate FiO2 07/08/24 10:36 54 20 96 40 07/08/24 10:29 129/51 07/08/24 10:00 99.1 Mechanical Ventilator Result Diagram: 07/08/24 0210 07/08/24 0210 Exam General: Still on mechanical ventilation HEENT: Conjunctiva pink, Sclera clear, Mucus Membranes moist. Neck: Supple without masses and tenderness. Resp: CTA b/l Heart: Irregularly irregular rhythm Abdomen: Soft and non tender no organomegaly Extremities: No cyanosis,clubbing or edema. Neurology: Opens eyes to painful stimuli Skin: Warm and Dry. Results Coagulation Studies Laboratory Tests Test 07/03/24 20:05 Prothrombin Time 11.3 SECONDS (9.0-12.0) INR International Normalized Ratio 1.1 INR Activated Partial Thromboplast Time 27 SECONDS (22-32) Coagulation Comments VTE VTE Risk Score VTE Risk Score Reference Ranges: Score 0-1 = Low Risk (Aggressive mobilization; early ambulation; no VTE prophylaxis required) Score 2: Moderate Risk (Intermittent/Pneumatic Compression Device OR Lovenox/Heparin/Coumadin) Score 3-4: High Risk (Intermittent/Pneumatic Compression Device AND Lovenox/Heparin/Coumadin) Score > or = 5: Highest Risk (Intermittent/Pneumatic Compression Device AND Lovenox/Heparin/Coumadin) Assessment/Plan Assessment This is a 54-year-old male who is ex-smoker (40 years smoking history) and morbidly obese, with a history of COPD was transferred from [facility] for further evaluation and management of sepsis, altered mental status, acute hypoxemic respiratory failure, and acute kidney injury. Patient was initially presented to the transferring facility for altered mentation and found down for prolonged period of time (altered, labored breathing, foaming at mouth). He was initially on BiPAP and later intubated. His FiO2 requirements had been gone up to 90%. He had been on two pressors i.e. Levophed and vasopressin. Plan Respiratory: Acute hypoxemic respiratory failure 2/2 likely aspiration pneumonia History of COPD On mechanical ventilation; vent settings AC/PRVC 20/450/7/40% Infectious disease: Sepsis present on admission Source likely aspiration pneumonia WBC trending up, 9.6 Keep map > 65, on pressors. Currently off pressors. Continue vancomycin and Zosyn Cardiac: LVEF is 65-70% on echocardiogram Off pressors. AFib with RVR; resolved and currently in sinus rhythm. Continue amiodarone and digoxin. Neurologic: Acute metabolic encephalopathy, likely 2/2 sepsis Sedation with Precedex and fentanyl on hold to facilitate spontaneous breathing trial. Renal: Acute renal failure has resolved. Nephrology consulted, Dr. Puente following. Monitor BMP Morbid obesity: Can not exclude SALLY and OHS Lines and tubes: ETT 0 G-tube Zamora catheter R IJ CBC Right radial A-line Overall prognosis: Guarded Critical care time 35 minutes. Expected Outcome/Goals Expected Outcomes/Goals: maintain stable wt, TF tolerance, bowel regularity, optimal skin integrity JEFFERSON JACOBS MD Jul 08, 2024 11:37
[2024-07-08] MEDS: Neutra Phos packet PO SCH (13:15)
[2024-07-08] MEDS ORDERED: DEXTROSE 15 GM of carb/4 tabs (each vial/BOTTLE has 4 tablets) PO PRN ×2 (15:25)
[2024-07-08] MEDS ORDERED: dextrose 50%-water 50ml dispensing syringe IV PRN ×2 (15:25)
[2024-07-08] MEDS ORDERED: glucagon, human recombinant 1mg kit SUBCUT PRN (15:25)
--- NOTE | 2024-07-08 18:01 | PROGRESS NOTE ---
Daily Progress Note Providers to CC ~ Antibiotic Timeout Antibiotic Ordered?: Yes Subjective The shampooer service was going to try to titrate the patient off the ventilator however this was unsuccessful and the patient now is on 70% oxygen patient was liver function is improving with discontinuing amiodarone, the patient was heart rate remains controlled with metoprolol Objective Vital Signs Date Time Temp Pulse Resp B/P (MAP) Pulse Ox O2 Delivery O2 Flow Rate FiO2 07/08/24 17:00 22 70 07/08/24 17:00 99.3 59 143/61 (88) 95 Mechanical Ventilator Result Diagram: 07/08/24 02107/08/24 021 Gen. Sedated and intubated on a ventilator Lungs clear to ascultation bilaterally, no wheezes rales or rhonchi appreciated Heart irregular rhythm no murmurs rubs or clicks noted Abdomen soft nontender bowel sounds are normoactive Lower extremities no clubbing cyanosis, nor edema appreciated bilaterally Coagulation Studies Laboratory Tests Test 07/03/24 20:05 Prothrombin Time 11.3 SECONDS (9.0-12.0) INR International Normalized Ratio 1.1 INR Activated Partial Thromboplast Time 27 SECONDS (22-32) Coagulation Comments Problem\Assessment\Plan Problems/Diagnosis: (1) Sepsis # sepsis/septic shock- secondary to aspiration pneumonia On IV vancomycin IV Zosyn 07/08 Levophed is DC patient was blood pressure is up trending # acute respiratory failure secondary to aspiration pneumonia Patient was son found the patient not breathing and had aspirated the patient has obstructive sleep apnea and is waiting for a CPAP 07/05 status post bronchoscopy with a large mucus plug causing left upper lobe atelectasis- remains on a ventilator at 60% FiO2 with a PEEP of 10 07/06 improving- on 50% FiO2 with a PEEP of 7.0 07/07 slightly improved on 45% FiO2 however the patient failed spontaneous breathing trial 07/08 the patient has failed spontaneous breathing trial today and now is on 70% FiO2 remains intubated on ventilator # AFib RVR On amiodarone and digoxin and esmolol 07/05 remains on amiodarone drip 07/07 amiodarone was discontinued due the patient was slightly bradycardic and l iver function test markedly up trended, esmolol was discontinued as well patient was on p.o. metoprolol 07/08 heart rate is controlled with metoprolol # transaminitis with a significant up trend- 07/07 Amiodarone drip was discontinued today - Ultrasound of the abdomen was concerning for possible bile leak gallbladder was absent 07/08 improving since amiodarone was discontinued # MICKEY Renal function is improving Hvac Project Engineer Dr. Mckeon is on board and following the patient On a D5W drip 07/05 continues to improve- Dr. Mckeon assessed that the underlying cause is likely ATN 07/06 continues to improve 07/07 continues to improve- nephrology has signed off 07/08 has resolved continue monitor daily CMP # obstructive sleep apnea Per the patient's son- awaiting evaluation for a CPAP Date of Service: Jul 08, 2024 Billing Provider: JARET LARA DO Common Visit Codes: [id number] INP/OBS CARE(HIGH) JARET LARA DO Jul 08, 2024 18:01
[2024-07-08] MEDS: insulin regular, human U-100 10ml vial - multi-dose SQ SCH (20:13)
[2024-07-08] MEDS: VANCOMYCIN LEVEL IV ONE (23:49)
[2024-07-09] VITALS (46 sets, daily range): BP systolic 11–190; BP diastolic 47–84; PULSE 56–76; RESP 19–34; O2SAT 90–100
[2024-07-09 02:12] LABS: BASOPHILS # (AUTO) 0.1 X10'3 (0-0.2); BASOPHILS % (AUTO) 0.7 % (0-1); EOSINOPHILS # (AUTO) 0.1 X10'3 (0-0.9); EOSINOPHILS % (AUTO) 1.6 % (0-6); HEMATOCRIT 28.5 % (42.0-52.0); HEMOGLOBIN 9.2 g/dl (14.0-17.9); LYMPHOCYTES % (AUTO) 11.5 % (21-51); MEAN CORPUSCULAR HEMOGLOBIN 28.7 PG (27.0-31.0); MEAN CORPUSCULAR HGB CONC 32.3 g/dL (33.0-36.5); MEAN CORPUSCULAR VOLUME 88.8 FL (78-98); MEAN PLATELET VOLUME 11.2 FL (7.4-10.4); MONOCYTES # (AUTO) 0.6 X10'3 (0-0.9); MONOCYTES % (AUTO) 6.9 % (2-12); NEUTROPHILS # (AUTO) 6.9 X10'3 (1.8-7.7); NEUTROPHILS % (AUTO) 79.3 % (42-75); PLATELET COUNT 110 X10'3 (140-440); RED BLOOD COUNT 3.21 X10'6 (4.70-6.10); RED CELL DISTRIBUTION WIDTH 17.5 % (11.5-14.5); WHITE BLOOD COUNT 8.7 X10'3 (4.5-11.0)
[2024-07-09 02:24] LABS: ALBUMIN 2.2 G/DL (3.4-5.0); ANION GAP 5 (8-16); BLOOD UREA NITROGEN 24 MG/DL (7-18); BUN/CREATININE RATIO 28.2 (10.0-20.0); CALCIUM 8.2 MG/DL (8.5-10.1); CHLORIDE 109 MMOL/L (99-107); CREATININE 0.85 MG/DL (0.60-1.10); GLUCOSE 174 MG/DL (70-104); MAGNESIUM 1.6 MG/DL (1.5-2.4); PHOSPHORUS 2.6 MG/DL (2.3-4.5); POTASSIUM 3.9 MMOL/L (3.5-5.1); PREALBUMIN 23.3 MG/DL (19-36); SODIUM 141 MMOL/L (135-145); TOTAL CARBON DIOXIDE 27.5 MMOL/L (24-32); eCRCL 103 ML/MIN; eGFR > 90 ML/MIN
[2024-07-09 03:30] LABS: ANISOCYTOSIS 1+; PLATELET ESTIMATE DECREASED; TOTAL CELLS COUNTED 100
[2024-07-09 03:31] LABS: LARGE PLATELETS FEW
[2024-07-09 03:43] LABS: ABG BASE EXCESS -0.9 mmol/L (-2.0-3.0); ABG HCO3 22.2 mmol/L (21.0-28.0); ABG OXYGEN SATURATION 93.1 % (94.0-98.0); ABG PCO2 (T) 31.7 mmHg (35.0-48.0); ABG PH (T) 7.463 (7.350-7.450); ABG PO2 (T) 62.2 mmHg (83.0-108.0); FCOHb 0.5 % (0.5-1.5); FHHb 6.8 % (0.0-5.0); FMetHb 0.3 % (0.0-1.5); FO2Hb 92.4 % (94.0-98.0); MODE PRVC; PATIENT TEMPERATURE 37.3; PEEP 5 cm H2O; RESPIRATORY RATE 20 b/min; TIDAL VOLUME 450 mL; TOTAL HEMOGLOBIN 11.1 G/dl (13.5-17.5)
--- NOTE | 2024-07-09 05:46 | RADIOLOGY REPORT ---
EXAM: XR Chest, 1 View CLINICAL INDICATION: vented TECHNIQUE: Frontal view of the chest. COMPARISON: DI CHEST,SINGLE VIEW on DOS: 07/08/24, DI CHEST,SINGLE VIEW on DOS: 07/07/24, DI CHEST,SI NGLE VIEW on DOS: 07/06/24, DI CHEST,SINGLE VIEW on DOS: 07/05/24, DI CHEST,SINGLE VIEW on DOS: 07/04/24 FINDINGS: LUNGS AND PLEURAL SPACES: See below. HEART: Cardiomegaly with pulmonary congestion and edema. Superimposed pneumonia cannot be excluded. MEDIASTINUM: Unremarkable. Normal mediastinal contour. BONES/JOINTS: Unremarkable. No acute fracture. TUBES, LINES AND DEVICES: Right internal jugular central venous catheter tip in the superior vena c christal. Enteric tube tip cannot be seen but is below the diaphragm. OTHER FINDINGS: . ANCELMO. IMPRESSION: Cardiomegaly with pulmonary congestion and edema. Superimposed pneumonia cannot be excluded.
[2024-07-09] MEDS: magnesium sulf-water 4G/100mL 100 ML IV ONE (07:27)
[2024-07-09] MEDS: furosemide 10 MG/1 ML 10ml inj IV ONE (07:27)
[2024-07-09] MEDS: potassium Cl 40MEQ/270ML bag 270 ML IV ONE (07:50)
[2024-07-09 08:32] LABS: ALANINE AMINOTRANSFERASE 119 U/L (12-78); ALBUMIN/GLOBULIN RATIO 0.7 (1.1-1.5); ALKALINE PHOSPHATASE 224 IU/L (46-116); ASPARTATE AMINO TRANSFERASE 36 U/L (10-37); BILIRUBIN,DIRECT 0.6 MG/DL (0-0.3); BILIRUBIN,TOTAL 1.3 MG/DL (0.1-1.0); TOTAL PROTEIN 5.4 G/DL (6.4-8.2)
[2024-07-09] MEDS ORDERED: dexmedetomidine inj. 1,000 MCG in normal saline 250ml IV soln 240 ML IV SCH (09:15)
[2024-07-09] MEDS: furosemide 40mg/4ml inj IV SCH (10:44)
[2024-07-09 10:48] LABS: ABG BASE EXCESS 3.2 mmol/L (-2.0-3.0); ABG OXYGEN SATURATION 94.6 % (94.0-98.0); ABG PH (T) 7.502 (7.350-7.450); ABG PO2 (T) 68.8 mmHg (83.0-108.0); FCOHb 0.2 % (0.5-1.5); FHHb 5.4 % (0.0-5.0); FMetHb 0.3 % (0.0-1.5); FO2Hb 94.1 % (94.0-98.0); MODE PRVC; PATIENT TEMPERATURE 37.5; PEEP 5 cm H2O; RESPIRATORY RATE 20 b/min; TOTAL HEMOGLOBIN 11.1 G/dl (13.5-17.5)
[2024-07-09] MEDS: dexmedetomidine inj. 1,000 MCG in normal saline 250ml IV soln 240 ML IV SCH (11:24)
--- NOTE | 2024-07-09 11:34 | PROGRESS NOTE- Residence ---
Progress Note - Resident Providers to CC Resident Creating Document: TA MCCLENDON RES CC: JARET LARA DO ~ Central Line/PICC still needed: Yes Central Line/PICC Necessity: Prolonged IV access req Zamora-Non Protocol Zamora Indications Met/Not Met: F/C Indications Met Antibiotic Timeout Antibiotic Ordered?: Yes If Yes, Indications: pneumonia MRSA Education MRSA Education Provided to pt: Yes Subjective FiO2 requirements went up to 70%, chest x-ray showed increased pulmonary congestion. He had net positive of more than 5 L for the past three days. Currently is awake, following commands, on minimal sedation with fentanyl and Precedex Objective Vital Signs Date Time Temp Pulse Resp B/P (MAP) Pulse Ox O2 Delivery O2 Flow Rate FiO2 07/09/24 11:24 131/57 07/09/24 10:38 75 26 Mechanical Ventilator 50 07/09/24 10:33 94 07/09/24 10:00 99.5 Result Diagram: 07/09/24 0200 07/09/24 0200 General: Elderly male, awake, following commands, intubated Head: Normocephalic with an atraumatic Eyes: Pupils- 3mm, reacting to light, conjunctiva- anicteric Nose and throat: No polyps, septum- normal, no mucosal ulcers Neck: Supple, no lymphadenopathy, no carotid bruit Respiratory: No use of accessory muscles of respiration, bilateral equal air entry present Cardiac: S1-S2 heard, rythm regular, no gallop/murmur Abdomen: non distended, no tenderness, no organomegaly, bowel sounds- heard Extremities: no clubbing, bilateral 2+ pitting pedal edema, no deformities, peripheral pulses- 2+ Skin: warm and dry, no rash, no purpura Neuro: No focal deficit, gross cranial nerve exam- normal Coagulation Studies Laboratory Tests Test 07/03/24 20:05 Prothrombin Time 11.3 SECONDS (9.0-12.0) INR International Normalized Ratio 1.1 INR Activated Partial Thromboplast Time 27 SECONDS (22-32) Coagulation Comments Assessment Assessment 54-year-old male who is ex-smoker (40 years smoking history) and morbidly obese, with a history of COPD was transferred from [facility] for further evaluation and management of sepsis, altered mental status, acute hypoxemic respiratory failure, and acute kidney injury. Patient was initially presented to the transferring facility for altered mentation and found down for prolonged period of time (altered, labored breathing, foaming at mouth). He was initially on BiPAP and later intubated. His FiO2 requirements had been gone up to 90%. He had been on two pressors i.e. Levophed and vasopressin, at the time of transfer Plan Plan Respiratory: Acute hypoxemic respiratory failure 2/2 likely aspiration pneumonia History of COPD ABG- 7.46/31/62/22 with fio2 of 70, and then changed to fio2 of 50, with abg of 7.5/34/68/26 On mechanical ventilation; changed to AC/CMV with Fio2 of 50, PEEP of 5, TV of 450ml Infectious disease: Sepsis present on admission Source likely aspiration pneumonia WBC 8.7 Keep map > 65, weaned off the pressors Continue Zosyn started on 07/04, dc vanco Cardiac: LVEF is 65-70% on echocardiogram Off pressors. AFib- currently rate controlled continue lopressor 50 mg q6 and elquis Neurologic: Acute metabolic encephalopathy, likely 2/2 sepsis Sedation with Precedex and fentanyl on hold to facilitate spontaneous breathing trial. Renal: Acute renal failure has resolved. Cr back to baseline with good uop nephrology signed off Morbid obesity: Can not exclude SALLY and OHS Hepatobiliary -bilirubin down to 1.3 from 4 -AST/ALT/ALP- downtrending -suspect 2/2 drug induced amiodarone Fluid overload -IV lasix 60 mg one dose f/b 40 mg bid Lines and tubes: ETT 0G-tube Zamora catheter R IJ CVC Right radial A-line Code Status: full code Analgesia/sedation: precedex/fentanyl GI prophylaxis: pepcid DVT prophylaxis: apixaban Nutrition: tube feeds PT/OT/SP: yes Prognosis: Guarded Disposition: Continue care in ICU Ta Mcclendon, ICU PGY-2 resident Date of Service: Jul 09, 2024 Billing Provider: JOSE M CURRIE MD,TA, RES Jul 09, 2024 11:34
[2024-07-09] MEDS: FENTANYL-0.9 % NACL/PF 100 ML IV SCH (18:07)
--- NOTE | 2024-07-09 19:31 | PROGRESS NOTE ---
Daily Progress Note Providers to CC ~ Antibiotic Timeout Antibiotic Ordered?: Yes Subjective The patient open his eyes today however he remains intubated and is on 60% FiO2 the patient appears fluid overloaded he has not elevated proBNP of 1100 and received IV Lasix today Objective Vital Signs Date Time Temp Pulse Resp B/P (MAP) Pulse Ox O2 Delivery O2 Flow Rate FiO2 07/09/24 19:14 69 23 Mechanical Ventilator 60 07/09/24 19:11 94 07/09/24 18:00 100.4 189/83 (118) Result Diagram: 07/09/24 0200 07/09/24 0200 Gen. intubated on a ventilator Lungs clear to ascultation bilaterally, no wheezes rales or rhonchi appreciated Heart irregular rhythm no murmurs rubs or clicks noted Abdomen soft nontender bowel sounds are normoactive Lower extremities no clubbing cyanosis, 1+ pitting edema appreciated bilaterally Coagulation Studies Laboratory Tests Test 07/03/24 20:05 Prothrombin Time 11.3 SECONDS (9.0-12.0) INR International Normalized Ratio 1.1 INR Activated Partial Thromboplast Time 27 SECONDS (22-32) Coagulation Comments Problem\Assessment\Plan Problems/Diagnosis: (1) Sepsis # sepsis/septic shock- secondary to aspiration pneumonia On IV vancomycin IV Zosyn 07/08 Levophed is DC patient was blood pressure is up trending # acute respiratory failure secondary to aspiration pneumonia Patient was son found the patient not breathing and had aspirated the patient has obstructive sleep apnea and is waiting for a CPAP 07/05 status post bronchoscopy with a large mucus plug causing left upper lobe atelectasis- remains on a ventilator at 60% FiO2 with a PEEP of 10 07/06 improving- on 50% FiO2 with a PEEP of 7.0 07/07 slightly improved on 45% FiO2 however the patient failed spontaneous breathing trial 07/08 the patient has failed spontaneous breathing trial today and now is on 70% FiO2 remains intubated on ventilator 07/09 oxygen has been titrated down to of 60% FiO2 # AFib RVR On amiodarone and digoxin and esmolol 07/05 remains on amiodarone drip 07/07 amiodarone was discontinued due the patient was slightly bradycardic and l iver function test markedly up trended, esmolol was discontinued as well patient was on p.o. metoprolol 07/08 heart rate is controlled with metoprolol # transaminitis with a significant up trend- 07/07 Amiodarone drip was discontinued today - Ultrasound of the abdomen was concerning for possible bile leak gallbladder was absent 07/08 improving since amiodarone was discontinued 07/09 Continues to improve # MICKEY Renal function is improving Radiology Practitioner Assistant Dr. Mckeon is on board and following the patient On a D5W drip 07/05 continues to improve- Dr. Mckeon assessed that the underlying cause is likely ATN 07/06 continues to improve 07/07 continues to improve- nephrology has signed off 07/08 has resolved continue monitor daily CMP # acute HFpEF- 07/09 ProBNP is 1100 received IV Lasix in his on b.i.d. IV Lasix # obstructive sleep apnea Per the patient's son- awaiting evaluation for a CPAP Date of Service: Jul 09, 2024 Billing Provider: JARET LARA DO Common Visit Codes: [id number] INP/OBS CARE(HIGH) JARET LARA DO Jul 09, 2024 19:31
[2024-07-09] MEDS: propofol 1000mg/100ml bottle 100 ML IV SCH (23:20)
[2024-07-09] MEDS: propofol 1000mg/100ml bottle 100 ML IV ONE (23:21)
[2024-07-10] VITALS (45 sets, daily range): BP systolic 104–184; BP diastolic 38–79; PULSE 61–100; RESP 12–26; O2SAT 90–98
[2024-07-10 02:22] LABS: BASOPHILS # (AUTO) 0.1 X10'3 (0-0.2); BASOPHILS % (AUTO) 0.7 % (0-1); EOSINOPHILS # (AUTO) 0.1 X10'3 (0-0.9); EOSINOPHILS % (AUTO) 1.4 % (0-6); HEMATOCRIT 27.2 % (42.0-52.0); LYMPHOCYTES # (AUTO) 1.2 X10'3 (1.1-4.8); LYMPHOCYTES % (AUTO) 11.9 % (21-51); MEAN CORPUSCULAR HEMOGLOBIN 28.9 PG (27.0-31.0); MEAN CORPUSCULAR HGB CONC 32.9 g/dL (33.0-36.5); MEAN CORPUSCULAR VOLUME 87.8 FL (78-98); MEAN PLATELET VOLUME 10.5 FL (7.4-10.4); MONOCYTES # (AUTO) 0.7 X10'3 (0-0.9); MONOCYTES % (AUTO) 6.6 % (2-12); NEUTROPHILS # (AUTO) 8.3 X10'3 (1.8-7.7); NEUTROPHILS % (AUTO) 79.4 % (42-75); PLATELET COUNT 134 X10'3 (140-440); WHITE BLOOD COUNT 10.5 X10'3 (4.5-11.0)
[2024-07-10 02:35] LABS: ALANINE AMINOTRANSFERASE 112 U/L (12-78); ALBUMIN 2.2 G/DL (3.4-5.0); ALBUMIN/GLOBULIN RATIO 0.6 (1.1-1.5); ALKALINE PHOSPHATASE 256 IU/L (46-116); ANION GAP 5 (8-16); ASPARTATE AMINO TRANSFERASE 31 U/L (10-37); BILIRUBIN,TOTAL 1.2 MG/DL (0.1-1.0); BLOOD UREA NITROGEN 20 MG/DL (7-18); BUN/CREATININE RATIO 21.1 (10.0-20.0); CALCIUM 8.4 MG/DL (8.5-10.1); CHLORIDE 105 MMOL/L (99-107); CREATININE 0.95 MG/DL (0.60-1.10); GLUCOSE 161 MG/DL (70-104); MAGNESIUM 1.9 MG/DL (1.5-2.4); PHOSPHORUS 3.9 MG/DL (2.3-4.5); SODIUM 142 MMOL/L (135-145); TOTAL PROTEIN 5.6 G/DL (6.4-8.2); TRIGLYCERIDES 158 MG/DL (20-135); eCRCL 92 ML/MIN; eGFR 83 ML/MIN
[2024-07-10 03:41] LABS: ABG BASE EXCESS 2.4 mmol/L (-2.0-3.0); ABG HCO3 25.5 mmol/L (21.0-28.0); ABG OXYGEN SATURATION 95.9 % (94.0-98.0); ABG PCO2 (T) 34.9 mmHg (35.0-48.0); ABG PH (T) 7.484 (7.350-7.450); ABG PO2 (T) 85.1 mmHg (83.0-108.0); FCOHb 0.1 % (0.5-1.5); FHHb 4.1 % (0.0-5.0); FMetHb 0.3 % (0.0-1.5); FO2Hb 95.5 % (94.0-98.0); MODE PRVC; PATIENT TEMPERATURE 37.9; PEEP 8 cm H2O; RESPIRATORY RATE 20 b/min; TIDAL VOLUME 450 mL; TOTAL HEMOGLOBIN 9.9 G/dl (13.5-17.5)
--- NOTE | 2024-07-10 05:50 | RADIOLOGY REPORT ---
CHEST RADIOGRAPH Indication: vented Technique: Single frontal view of the chest was obtained COMPARISON: DI CHEST,SINGLE VIEW on DOS: 07/09/24, DI CHEST,SINGLE VIEW on DOS: 07/08/24, DI CHEST,SING LE VIEW on DOS: 07/07/24, DI CHEST,SINGLE VIEW on DOS: 07/06/24, DI CHEST,SINGLE VIEW on DOS: 07/05/24 FINDINGS: Lines and Tubes: Endotracheal tube, enteric catheter and right central venous catheter in satisfactor y position. Lungs: Congestion Pleura: No effusion. No pneumothorax. Cardiomediastinal contours: Unremarkable Bones: Unremarkable IMPRESSION: Lines and tubes in satisfactory position. No significant interval change.
[2024-07-10 10:22] LABS: ABG PCO2 (T) 36.2 mmHg (35.0-48.0); ABG PH (T) 7.509 (7.350-7.450); ABG PO2 (T) 67.4 mmHg (83.0-108.0); ALLEN'S TEST POSITIVE; FCOHb 0.3 % (0.5-1.5); FMetHb 0.3 % (0.0-1.5); PATIENT TEMPERATURE 37.7; PEEP 8 cm H2O; TOTAL HEMOGLOBIN 10.1 G/dl (13.5-17.5)
[2024-07-10 10:23] LABS: ABG OXYGEN SATURATION 92.6 % (94.0-98.0); FHHb 7.4 % (0.0-5.0)
--- NOTE | 2024-07-10 13:05 | PROGRESS NOTE- Residence ---
Progress Note - Resident Providers to CC Resident Creating Document: KAMLA MCCLENDON RES CC: JOSE M CURRIE MD ~ Central Line/PICC still needed: Yes Azmora-Non Protocol Zamora Indications Met/Not Met: F/C Indications Met Antibiotic Timeout Antibiotic Ordered?: No Subjective Patient is off the sedation, and passed SBT trial. He got extubated and is currently on HFNC- 10 lpm. Objective Vital Signs Date Time Temp Pulse Resp B/P (MAP) Pulse Ox O2 Delivery O2 Flow Rate FiO2 07/10/24 12:00 99.9 72 12 134/57 (82) 93 Nasal Cannula 8.0 07/10/24 11:40 N/A Result Diagram: 07/10/240 07/10/24 0200 General: Elderly male, AAOx4, not in apparent distress, on HFNC- 10 lpm Head: Normocephalic with an atraumatic Eyes: Pupils- 3mm, reacting to light, conjunctiva- anicteric Nose and throat: No polyps, septum- normal, no mucosal ulcers Neck: Supple, no lymphadenopathy, no carotid bruit Respiratory: No use of accessory muscles of respiration, bilateral equal air entry present Cardiac: S1-S2 heard, rythm regular, no gallop/murmur Abdomen: non distended, no tenderness, no organomegaly, bowel sounds- heard Extremities: no clubbing, bilateral 1+ pitting pedal edema, no deformities, peripheral pulses- 2+ Skin: warm and dry, no rash, no purpura Neuro: moving all extremeties Coagulation Studies Laboratory Tests Test 07/03/24 20:05 Prothrombin Time 11.3 SECONDS (9.0-12.0) INR International Normalized Ratio 1.1 INR Activated Partial Thromboplast Time 27 SECONDS (22-32) Coagulation Comments Assessment Assessment 54-year-old male who is ex-smoker (40 years smoking history) and morbidly obese, with a history of COPD was transferred from [facility] for further evaluation and management of sepsis, altered mental status, acute hypoxemic respiratory failure, and acute kidney injury. Patient was initially presented to the transferring facility for altered mentation and found down for prolonged period of time (altered, labored breathing, foaming at mouth). He was initially on BiPAP and later intubated. His FiO2 requirements had been gone up to 90%. He had been on two pressors i.e. Levophed and vasopressin, at the time of transfer Plan Plan Respiratory: Acute hypoxemic respiratory failure 2/2 likely aspiration pneumonia History of COPD extubated on 07/10 -currently on HFNC 8 L/min, maintain SpO2 in the range of 88-94, monitor respiratory rate Infectious disease: Sepsis present on admission Source likely aspiration pneumonia WBC 8.7 Keep map > 65, weaned off the pressors Completed seven day course of Zosy, and vanco dced Cardiac: LVEF is 65-70% on echocardiogram Off pressors. AFib- currently rate controlled continue lopressor 50 mg q6 and elquis Neurologic: Acute metabolic encephalopathy, likely 2/2 sepsis Sedation with Precedex for anxiety/agitation Renal: Acute renal failure has resolved. Cr back to baseline with good uop nephrology signed off Morbid obesity: Can not exclude SALLY and OHS Hepatobiliary -bilirubin down to 1.3 from 4 -AST/ALT/ALP- downtrending -suspect 2/2 drug induced amiodarone Fluid overload -improving, continue lasix 40 mg bid Lines and tubes: Zamora catheter R IJ CVC Right radial A-line- DC A line Code Status: full code Analgesia/sedation: precedex GI prophylaxis: pepcid DVT prophylaxis: apixaban Nutrition: ST eval f/b po feeds PT/OT/SP: yes Prognosis: Guarded Disposition: Continue care in ICU Kamla Mcclendon, ICU PGY-2 resident Date of Service: Jul 10, 2024 Billing Provider: JOSE M CURRIE MD,KAMLA, RES Jul 10, 2024 13:05
[2024-07-10] MEDS: hydrALAZINE 20mg/ml inj. IV PRN (14:13)
[2024-07-10] MEDS ORDERED: niCARDipine-NS 40mg/200ml IVPB 200 ML IV SCH (15:10)
[2024-07-10] MEDS: niCARDipine-NS 40mg/200ml IVPB 200 ML IV SCH (15:19)
--- NOTE | 2024-07-10 18:46 | PROGRESS NOTE ---
Daily Progress Note Providers to CC ~ Antibiotic Timeout Antibiotic Ordered?: Yes Subjective Patient was extubated this morning patient was on high-flow oxygen when I evaluated him the patient was able to speak softly and I could understand the patient. He was no acute complaints I did speak to him and mentioned that he needs sleep and on recliner and that is son and assessed that he had aspirated prior comes in the hospital. Objective Vital Signs Date Time Temp Pulse Resp B/P (MAP) Pulse Ox O2 Delivery O2 Flow Rate FiO2 07/10/24 18:00 99.5 74 20 124/54 (77) 97 Bi-pap/CPAP 100 07/10/24 15:13 10.0 Result Diagram: 07/10/24 0200 07/10/24 0200 Gen. No acute distress however the patient does have significant amount of secretions Lungs clear to ascultation bilaterally, no wheezes rales or rhonchi appreciated Heart irregular rhythm no murmurs rubs or clicks noted Abdomen soft nontender bowel sounds are normoactive Lower extremities no clubbing cyanosis, 1+ pitting edema appreciated bilaterally Coagulation Studies Laboratory Tests Test 07/03/24 20:05 Prothrombin Time 11.3 SECONDS (9.0-12.0) INR International Normalized Ratio 1.1 INR Activated Partial Thromboplast Time 27 SECONDS (22-32) Coagulation Comments Problem\Assessment\Plan Problems/Diagnosis: (1) Sepsis # sepsis/septic shock- secondary to aspiration pneumonia On IV vancomycin IV Zosyn 07/08 Levophed is DC patient was blood pressure is up trending 07/10 has resolved # hypertension- Uncontrolled on a nicardipine drip # acute respiratory failure secondary to aspiration pneumonia Patient was son found the patient not breathing and had aspirated the patient has obstructive sleep apnea and is waiting for a CPAP 07/05 status post bronchoscopy with a large mucus plug causing left upper lobe atelectasis- remains on a ventilator at 60% FiO2 with a PEEP of 10 07/06 improving- on 50% FiO2 with a PEEP of 7.0 07/07 slightly improved on 45% FiO2 however the patient failed spontaneous breathing trial 07/08 the patient has failed spontaneous breathing trial today and now is on 70% FiO2 remains intubated on ventilator 07/09 oxygen has been titrated down to of 60% FiO2 07/10 extubated today on high-flow oxygen and currently on CPAP # AFib RVR On amiodarone and digoxin and esmolol 07/05 remains on amiodarone drip 07/07 amiodarone was discontinued due the patient was slightly bradycardic and l iver function test markedly up trended, esmolol was discontinued as well patient was on p.o. metoprolol 07/08 heart rate is controlled with metoprolol 07/10 heart rate remains controlled # transaminitis with a significant up trend- 07/07 Amiodarone drip was discontinued today - Ultrasound of the abdomen was concerning for possible bile leak gallbladder was absent 07/08 improving since amiodarone was discontinued 07/09 Continues to improve # MICKEY Renal function is improving Street Commissioner Dr. Mckeon is on board and following the patient On a D5W drip 07/05 continues to improve- Dr. Mckeon assessed that the underlying cause is likely ATN 07/06 continues to improve 07/07 continues to improve- nephrology has signed off 07/08 has resolved continue monitor daily CMP # acute HFpEF- 07/09 ProBNP is 1100 received IV Lasix in his on b.i.d. IV Lasix # obstructive sleep apnea Per the patient's son- awaiting evaluation for a CPAP Date of Service: Jul 10, 2024 Billing Provider: JARET LARA DO Common Visit Codes: [id number] INP/OBS CARE(HIGH) JARET LARA DO Jul 10, 2024 18:46
[2024-07-10] MEDS: niCARDipine-NS 40mg/200ml IVPB 200 ML IV PRN (23:10)
[2024-07-11] VITALS (48 sets, daily range): BP systolic 83–184; BP diastolic 39–74; PULSE 11–107; RESP 19–29; O2SAT 85–100
[2024-07-11] MEDS: dexmedetomidin/NS 400mcg/100ml 100 ML IV SCH (00:03)
[2024-07-11 00:12] LABS: ABG BASE EXCESS 7.5 mmol/L (-2.0-3.0); ABG HCO3 30.5 mmol/L (21.0-28.0); ABG OXYGEN SATURATION 84.9 % (94.0-98.0); ABG PCO2 (T) 37.4 mmHg (35.0-48.0); ABG PO2 (T) 48.5 mmHg (83.0-108.0); FCOHb 0.2 % (0.5-1.5); FMetHb 0.3 % (0.0-1.5); FO2Hb 84.5 % (94.0-98.0); MODE MASK - BIPAP; PATIENT TEMPERATURE 37.5; RESPIRATORY RATE 12 b/min; TOTAL HEMOGLOBIN 10.3 G/dl (13.5-17.5)
[2024-07-11] MEDS: propofol 1000mg/100ml bottle 100 ML IV ONE (00:13)
[2024-07-11] MEDS: rocuronium 10mg/ml inj IV ONE (01:16)
[2024-07-11] MEDS: etomidate 2mg/ml inj. IV ONE (01:16)
[2024-07-11 01:25] LABS: ABG BASE EXCESS 6.9 mmol/L (-2.0-3.0); ABG HCO3 31.6 mmol/L (21.0-28.0); ABG OXYGEN SATURATION 87.6 % (94.0-98.0); ABG PCO2 (T) 46.6 mmHg (35.0-48.0); ABG PH (T) 7.451 (7.350-7.450); ABG PO2 (T) 55.5 mmHg (83.0-108.0); FCOHb 0.3 % (0.5-1.5); FHHb 12.3 % (0.0-5.0); FMetHb 0.3 % (0.0-1.5); FO2Hb 87.1 % (94.0-98.0); MODE VENT - AC; PATIENT TEMPERATURE 37.6; PEEP 12 cm H2O; RESPIRATORY RATE 20 b/min; TIDAL VOLUME 450 mL
[2024-07-11] MEDS: FENTANYL-0.9 % NACL/PF 100 ML IV SCH (01:28)
[2024-07-11] MEDS: propofol 1000mg/100ml bottle 100 ML IV SCH (01:28)
--- NOTE | 2024-07-11 02:40 | RADIOLOGY REPORT ---
Clinical History intubation Comparison CXR on 07/10/2024, 1 images. Technique: frontal chest x-ray Without Contrast HILLARY CORTES, [id number] Findings: Heart - normal lungs - opacified left hemithorax. bones - no acute fracture. Other- endotracheal to 6.2 cm above the carola. Right jugular catheter tip extends to the SVC. Impression: 1. Opacified left hemithorax 2. Endotracheal tube 6.2 cm above the carola This report was electronically signed by Joaquín Mcfarland MD on 07/11/2024 2:36:22 AM.
--- NOTE | 2024-07-11 03:24 | RADIOLOGY REPORT ---
Clinical History RECHECK INTUBATION Comparison CXR on 07/11/2024, 4 images. Technique: frontal chest x-ray Without Contrast HILLARY CORTES, [id number] Findings: Heart - normal lungs - opacified left hemithorax bones - no acute fracture. Other- endotracheal tube 4 cm above the carola. Nasogastric tube tip projects over the stomach. Rig ht central venous catheter tip extends to the SVC. Impression: 1. Endotracheal tube 4 cm above the carola 2. Opacified left hemithorax. This report was electronically signed by Joaquín Mcfarland MD on 07/11/2024 3:21:50 AM.
[2024-07-11 03:28] LABS: BASOPHILS # (AUTO) 0.1 X10'3 (0-0.2); BASOPHILS % (AUTO) 0.9 % (0-1); EOSINOPHILS # (AUTO) 0.2 X10'3 (0-0.9); EOSINOPHILS % (AUTO) 1.3 % (0-6); HEMATOCRIT 30.7 % (42.0-52.0); HEMOGLOBIN 9.8 g/dl (14.0-17.9); LYMPHOCYTES # (AUTO) 1.2 X10'3 (1.1-4.8); MEAN CORPUSCULAR HEMOGLOBIN 28.7 PG (27.0-31.0); MEAN CORPUSCULAR VOLUME 89.5 FL (78-98); MEAN PLATELET VOLUME 11.5 FL (7.4-10.4); MONOCYTES # (AUTO) 0.7 X10'3 (0-0.9); NEUTROPHILS # (AUTO) 11.1 X10'3 (1.8-7.7); NEUTROPHILS % (AUTO) 83.8 % (42-75); PLATELET COUNT 158 X10'3 (140-440); RED BLOOD COUNT 3.43 X10'6 (4.70-6.10); RED CELL DISTRIBUTION WIDTH 18.5 % (11.5-14.5); WHITE BLOOD COUNT 13.2 X10'3 (4.5-11.0)
[2024-07-11 03:51] LABS: ALANINE AMINOTRANSFERASE 144 U/L (12-78); ALBUMIN 2.6 G/DL (3.4-5.0); ALBUMIN/GLOBULIN RATIO 0.7 (1.1-1.5); ALKALINE PHOSPHATASE 411 IU/L (46-116); ANION GAP 9 (8-16); ASPARTATE AMINO TRANSFERASE 55 U/L (10-37); BILIRUBIN,TOTAL 1.7 MG/DL (0.1-1.0); BLOOD UREA NITROGEN 20 MG/DL (7-18); BUN/CREATININE RATIO 20.4 (10.0-20.0); CALCIUM 8.6 MG/DL (8.5-10.1); CHLORIDE 102 MMOL/L (99-107); CREATININE 0.98 MG/DL (0.60-1.10); GLUCOSE 138 MG/DL (70-104); MAGNESIUM 1.8 MG/DL (1.5-2.4); PHOSPHORUS 4.4 MG/DL (2.3-4.5); POTASSIUM 3.7 MMOL/L (3.5-5.1); PRO BRAIN NATRIURETIC PEPTIDE 1728 PG/ML (0-125); SODIUM 143 MMOL/L (135-145); TOTAL CARBON DIOXIDE 32.4 MMOL/L (24-32); TOTAL PROTEIN 6.6 G/DL (6.4-8.2); eCRCL 89 ML/MIN; eGFR 80 ML/MIN
[2024-07-11] MEDS: INSULIN LISPRO 100 UNIT/ML INSULN.PEN MULTI-DOSE SQ SCH (04:26)
--- NOTE | 2024-07-11 06:32 | PROCEDURE NOTE CC ---
Procedure Note Providers to CC ~ Planned Procedure Direct laryngoscopy Indications Hypoxic respiratory failure Post Operative Dx: Hypoxic respiratory failure Aerial Tram Operator Primo Meneses MD Type of Anesthesia Etomidate, rocuronium Informed Consent Verbal Description Direct laryngoscopy performed with 4 0 mac blade. Visualized cords endotracheal tube inserted 21 cm at the teeth. Positive color change condensation in the tube and bilateral breath sounds. Post intubation chest x-ray showing appropriate tube placement Complication None PRIMO MENESES MD Jul 11, 2024 06:32
[2024-07-11] MEDS ORDERED: rocuronium 10mg/ml inj IV ONE (08:00)
--- NOTE | 2024-07-11 08:41 | RADIOLOGY REPORT ---
CHEST RADIOGRAPH Indication: infiltrate Technique: Single frontal view of the chest was obtained Comparison: DI CHEST,SINGLE VIEW on DOS: 07/11/24 FINDINGS: Lines and Tubes: The enteric tube courses below the left hemidiaphragm and the tip extends outside th e field of view. The endotracheal tube terminates 4 cm above the carola. Right central venous [address] ter terminates in the superior vena cava. Lungs: Bibasilar atelectasis. Pleura: Left pleural effusion. No pneumothorax. Cardiomediastinal contours: Cardiomegaly. Bones: No acute osseous abnormality. IMPRESSION: 1. Support lines and tubes in appropriate position. 2. Bibasilar atelectasis. Left pleural effusion.
--- NOTE | 2024-07-11 08:46 | PROCEDURE NOTE CC ---
Procedure Note CC Providers to CC ~ Procedure Name: Bronchoscopy Description: Time Out: Done Consent: Family Indication: Complete Atelectasis L-Lung Sedation: Fentanyl/Propofol Description: Bronchoscope introduced via ETT. Cheryl nl. R-side with mild amount of clear thin secretions, mucosa nl, no intrabronchial lesions. L-side with large amount of thick secretions completely occluding L-main Bronchus. BAL performed. No samples taken. Complications: None. CXR post procedure with complete resolution of atelectasis reviewed by myself EBL:0ml JOSE M CURRIE MD Jul 11, 2024 08:46
[2024-07-11] MEDS ORDERED: potassium Cl 20 mEq SR tablet PO PRN ×2 (10:25)
[2024-07-11] MEDS ORDERED: potassium Cl 40MEQ/270ML bag 270 ML IV PRN (10:25)
[2024-07-11] MEDS ORDERED: magnesium sulf-water 4G/100mL 100 ML IV PRN (10:25)
[2024-07-11] MEDS: magnesium sulf-water 2g/50mL 50 ML IV ONE (11:04)
--- NOTE | 2024-07-11 11:05 | PROGRESS NOTE- Residence ---
Progress Note - Resident Providers to CC Resident Creating Document: KAMLA MCCLENDON RES CC: JOSE M MCLEAN MD ~ Central Line/PICC still needed: Yes Central Line/PICC Necessity: Prolonged IV access req Antibiotic Timeout Antibiotic Ordered?: No Subjective He was extubated, and was put on HFNC and then transitioned to BiPAP yesterday night. Overnight patient's saturations fell down to 85-88 even with 100% FiO2 on BiPAP. ABG obtained showed partial pressure of oxygen of 46.8 and chest x-ray showed left lung opacity. Patient was intubated at around 12:30 a.m. In the morning Dr. Mclean did bronchoscopy which showed copious amount of clear secretions along with the left bronchus mucus plug. After the bronchoscopy the opacity over the left lung improved Currently patient is sedated with propofol and fentanyl and is on FiO2 of 85 with PEEP of 12, with sats of 92-94 Objective Vital Signs Date Time Temp Pulse Resp B/P (MAP) Pulse Ox O2 Delivery O2 Flow Rate FiO2 07/11/24 10:00 99.3 74 20 127/59 (81) 94 Mechanical Ventilator 85 07/10/24 15:13 10.0 Result Diagram: 07/11/2420407/11/24 020 General: Elderly male, intubated and sedated with RASS of -1, with FiO2 of 85 Head: Normocephalic with an atraumatic Eyes: Pupils- 3mm, reacting to light, conjunctiva- anicteric Nose and throat: No polyps, septum- normal, no mucosal ulcers Neck: Supple, no lymphadenopathy, no carotid bruit Respiratory: No use of accessory muscles of respiration, bilateral equal air entry present, mild diffuse wheeze present Cardiac: S1-S2 heard, rythm regular, no gallop/murmur Abdomen: non distended, no tenderness, no organomegaly, bowel sounds- heard Extremities: no clubbing, bilateral 1+ pitting pedal edema, no deformities, peripheral pulses- 2+ Skin: warm and dry, no rash, no purpura Neuro: Unable to elicit as patient is sedated Coagulation Studies Laboratory Tests Test 07/03/24 20:05 Prothrombin Time 11.3 SECONDS (9.0-12.0) INR International Normalized Ratio 1.1 INR Activated Partial Thromboplast Time 27 SECONDS (22-32) Coagulation Comments Assessment Assessment 54-year-old male who is ex-smoker (40 years smoking history) and morbidly obese, with a history of COPD was transferred from [facility] for further evaluation and management of sepsis, altered mental status, acute hypoxemic respiratory failure, and acute kidney injury. Patient was initially presented to the transferring facility for altered mentation and found down for prolonged period of time (altered, labored breathing, foaming at mouth). He was initially on BiPAP and later intubated. His FiO2 requirements had been gone up to 90%. He had been on two pressors i.e. Levophed and vasopressin, at the time of transfer Plan Plan Respiratory: Acute hypoxemic respiratory failure 2/2 likely aspiration pneumonia History of COPD extubated on 07/10, reintubated on 07/11 Left lung atelectasis- improved after bronchoscopy on 07/11 -chest x-ray done this morning showed bilateral basilar atelectasis, ETT in correct position -bronchoscopy done showed copious clear secretions, left bronchus mucus plugging -atelectasis improved the chest x-ray after bronchoscopy -Currently on AC/CMV with FiO2 of 85, peep 12, tidal volume of 450 cc with plateau pressures of 20 -mucinex nebulizations q.12 and added Solu-Medrol 30 mg IV q.6 Infectious disease: Sepsis present on admission Source likely aspiration pneumonia Completed seven day course of Zosyn on 07/10, and vanco dced T-max of 100.2� with WBC of 13.2 Follow up on procalcitonin, follow up on respiratory culture Cardiac: LVEF is 65-70% on echocardiogram Off pressors. AFib- currently rate controlled continue lopressor 50 mg q6 and elquis Fluid overload -increased the dose of Lasix to 60 mg q.8h - repeat Echocardiogram Neurologic: Acute metabolic encephalopathy, likely 2/2 sepsis Continue sedation with propofol and fentanyl Renal: Acute renal failure has resolved. Cr back to baseline with good uop nephrology signed off Morbid obesity: Can not exclude SALLY and OHS Hepatobiliary -bilirubin down to 1.3 from 4 -AST/ALT/ALP- slightly uptrending compared to yesterday -suspect 2/2 drug induced amiodarone Events on 07/10 -patient was extubated, transitioned to HFNC and then to BiPAP Events on 07/11 -overnight sats dropped, chest x-ray showed left hemithorax opacification, and got re intubated -bronchoscopy in the a.m. showed copious clear secretions, left bronchus mucus plugging, improved left lung atelectasis on chest x-ray after bronchoscopy -increased dose of Lasix to 60 mg q.8h and added IV Solu-Medrol 30 mg q.6 and Mucinex nebulizations -remains on AC/CMV with peep of 12, FiO2 of 85 Lines and tubes: Zamora catheter R IJ CVC Right radial A-line- ETT OGT Code Status: full code Analgesia/sedation: Propofol, fentanyl GI prophylaxis: pepcid DVT prophylaxis: apixaban Nutrition: TFs PT/OT/SP: yes Prognosis: Guarded Disposition: Continue care in ICU Kamla Mcclendon, ICU PGY-2 resident Date of Service: Jul 11, 2024 Billing Provider: JOSE M MCLEAN MD,KAMLA, RES Jul 11, 2024 11:05
[2024-07-11] MEDS: PERFLUTREN PROTEIN-A MICROSPHR (Optison) 0.22 MG/ML 3ML VIAL IV ONE (11:22)
[2024-07-11] MEDS ORDERED: DEXTROSE 15 GM of carb/4 tabs (each vial/BOTTLE has 4 tablets) OGT PRN ×2 (11:24)
[2024-07-11] MEDS ORDERED: POTASSIUM CHLORIDE 20 MEQ/15 ML oral solution OGT PRN ×2 (11:25)
[2024-07-11] MEDS: furosemide 40mg/4ml inj IV SCH (12:22)
[2024-07-11] MEDS: methylPREDNISolone sod succ/PF 40mg inj. IV SCH (13:38)
--- NOTE | 2024-07-11 15:42 | PROGRESS NOTE ---
Daily Progress Note Providers to CC ~ Antibiotic Timeout Antibiotic Ordered?: Yes Subjective Extubated yesterday and became severely hypoxic an x-ray was obtained which demonstrated a complete white out of the left lung and the patient was reintubated had a bronchoscopy which improved his oxygen requirement from 100% O2 now 70% O2. The patient continues to be afebrile Objective Vital Signs Date Time Temp Pulse Resp B/P (MAP) Pulse Ox O2 Delivery O2 Flow Rate FiO2 07/11/24 15:00 99.5 74 20 101/43 (62) 94 Mechanical Ventilator 70 07/10/24 15:13 10.0 Result Diagram: 07/11/24 0205 07/11/24 0205 Gen. Sedated and intubated on a ventilator Lungs clear to ascultation bilaterally, no wheezes rales or rhonchi appreciated Heart irregular rhythm no murmurs rubs or clicks noted Abdomen soft nontender bowel sounds are normoactive Lower extremities no clubbing cyanosis, 1+ pitting edema appreciated bilaterally Coagulation Studies Laboratory Tests Test 07/03/24 20:05 Prothrombin Time 11.3 SECONDS (9.0-12.0) INR International Normalized Ratio 1.1 INR Activated Partial Thromboplast Time 27 SECONDS (22-32) Coagulation Comments Problem\Assessment\Plan Problems/Diagnosis: (1) Sepsis # sepsis/septic shock- secondary to aspiration pneumonia On IV vancomycin IV Zosyn 07/08 Levophed is DC patient was blood pressure is up trending 07/10 has resolved # hypertension- Uncontrolled on a nicardipine drip # acute respiratory failure secondary to aspiration pneumonia Patient was son found the patient not breathing and had aspirated the patient has obstructive sleep apnea and is waiting for a CPAP 07/05 status post bronchoscopy with a large mucus plug causing left upper lobe atelectasis- remains on a ventilator at 60% FiO2 with a PEEP of 10 07/06 improving- on 50% FiO2 with a PEEP of 7.0 07/07 slightly improved on 45% FiO2 however the patient failed spontaneous breathing trial 07/08 the patient has failed spontaneous breathing trial today and now is on 70% FiO2 remains intubated on ventilator 07/09 oxygen has been titrated down to of 60% FiO2 07/10 extubated today on high-flow oxygen and currently on CPAP 07/11 reintubated last evening for completely whiteout of the left lung- status post bronchoscopy with the mucus plugging of the left mainstem bronchus by Dr. Mclean data reviewer- oxygen demand is improved from 100% O2 now on 70% O2 # AFib RVR On amiodarone and digoxin and esmolol 07/05 remains on amiodarone drip 07/07 amiodarone was discontinued due the patient was slightly bradycardic and l iver function test markedly up trended, esmolol was discontinued as well patient was on p.o. metoprolol 07/08 heart rate is controlled with metoprolol 07/10 heart rate remains controlled # transaminitis with a significant up trend- 07/07 Amiodarone drip was discontinued today - Ultrasound of the abdomen was concerning for possible bile leak gallbladder was absent 07/08 improving since amiodarone was discontinued 07/09 Continues to improve # MICKEY Renal function is improving Bioanalyst Dr. Mckeon is on board and following the patient On a D5W drip 07/05 continues to improve- Dr. Mckeon assessed that the underlying cause is likely ATN 07/06 continues to improve 07/07 continues to improve- nephrology has signed off 07/08 has resolved continue monitor daily CMP # acute HFpEF- 07/09 ProBNP is 1100 received IV Lasix in his on b.i.d. IV Lasix 07/11 proBNP is 1728 IV Lasix is increased to 60 mg t.i.d. # obstructive sleep apnea Per the patient's son- awaiting evaluation for a CPAP Date of Service: Jul 11, 2024 Billing Provider: JARET LARA DO Common Visit Codes: [id number] INP/OBS CARE(HIGH) JARET LARA DO Jul 11, 2024 15:42
[2024-07-11] MEDS: NORepinephrine 8mg/ 250ml NS 250 ML IV SCH (18:31)
[2024-07-11] MEDS ORDERED: acetylcysteine 200 MG/ml 4ml vial INH SCH (20:00)
[2024-07-11] MEDS: apixaban 5mg tablet OGT SCH (20:32)
[2024-07-11] MEDS: insulin regular, human U-100 10ml vial - multi-dose SQ SCH (21:21)
[2024-07-12] VITALS (43 sets, daily range): BP systolic 90–148; BP diastolic 39–74; PULSE 63–101; RESP 11–25; O2SAT 90–98
--- NOTE | 2024-07-12 00:12 | PROGRESS NOTE ---
Progress Note Dictate Providers to CC ~ Antibiotic Ordered?: N/A Objective Vitals Vital Signs Date Time Temp Pulse Resp B/P (MAP) Pulse Ox O2 Delivery O2 Flow Rate FiO2 07/11/24 23:48 20 60 07/11/24 23:32 70 Mechanical Ventilator 07/11/24 23:30 109/58 07/11/24 23:27 96 07/11/24 23:00 99.9 07/10/24 15:13 10.0 Lab Results: 07/11/24 0205 07/11/24 0205 Coagulation Studies Laboratory Tests Test 07/03/24 20:05 Prothrombin Time 11.3 SECONDS (9.0-12.0) INR International Normalized Ratio 1.1 INR Activated Partial Thromboplast Time 27 SECONDS (22-32) Coagulation Comments Problem\Assessment\Plan Additional Plan Patient seen and evaluated using HIPPA compliant AV device D/W RN Re-intubtaed, S/P bronch for mucous clearing Intubated and sedated No overt distress, synchronous with the vent Continue mechanical ventilation Aggressive A/W clearance after extubation Diuretics Daily SBT CCT 60mins MD GUSTAVO Ortega,ANDREA Galarza MD Jul 12, 2024 00:12
[2024-07-12 02:42] LABS: BASOPHILS # (AUTO) 0.1 X10'3 (0-0.2); BASOPHILS % (AUTO) 0.6 % (0-1); EOSINOPHILS % (AUTO) 0.1 % (0-6); HEMATOCRIT 26.8 % (42.0-52.0); HEMOGLOBIN 8.7 g/dl (14.0-17.9); LYMPHOCYTES # (AUTO) 0.5 X10'3 (1.1-4.8); LYMPHOCYTES % (AUTO) 4.9 % (21-51); MEAN CORPUSCULAR HEMOGLOBIN 29.2 PG (27.0-31.0); MEAN CORPUSCULAR HGB CONC 32.6 g/dL (33.0-36.5); MEAN CORPUSCULAR VOLUME 89.5 FL (78-98); MEAN PLATELET VOLUME 11.4 FL (7.4-10.4); MONOCYTES # (AUTO) 0.2 X10'3 (0-0.9); MONOCYTES % (AUTO) 1.6 % (2-12); NEUTROPHILS % (AUTO) 92.8 % (42-75); PLATELET COUNT 147 X10'3 (140-440); RED BLOOD COUNT 2.99 X10'6 (4.70-6.10); WHITE BLOOD COUNT 9.7 X10'3 (4.5-11.0)
[2024-07-12 03:09] LABS: ALANINE AMINOTRANSFERASE 170 U/L (12-78); ALBUMIN 2.5 G/DL (3.4-5.0); ALBUMIN/GLOBULIN RATIO 0.6 (1.1-1.5); ALKALINE PHOSPHATASE 579 IU/L (46-116); ANION GAP 6 (8-16); ASPARTATE AMINO TRANSFERASE 55 U/L (10-37); BILIRUBIN,TOTAL 1.7 MG/DL (0.1-1.0); BLOOD UREA NITROGEN 35 MG/DL (7-18); BUN/CREATININE RATIO 22.9 (10.0-20.0); CALCIUM 8.4 MG/DL (8.5-10.1); CHLORIDE 101 MMOL/L (99-107); CREATININE 1.53 MG/DL (0.60-1.10); GLUCOSE 232 MG/DL (70-104); MAGNESIUM 2.2 MG/DL (1.5-2.4); PHOSPHORUS 5.1 MG/DL (2.3-4.5); POTASSIUM 4.8 MMOL/L (3.5-5.1); PREALBUMIN 20.4 MG/DL (19-36); PRO BRAIN NATRIURETIC PEPTIDE 1956 PG/ML (0-125); SODIUM 139 MMOL/L (135-145); TOTAL CARBON DIOXIDE 32.1 MMOL/L (24-32); TOTAL PROTEIN 6.4 G/DL (6.4-8.2); eCRCL 57 ML/MIN; eGFR 48 ML/MIN
[2024-07-12 05:10] LABS: ABG BASE EXCESS 4.3 mmol/L (-2.0-3.0); ABG OXYGEN SATURATION 99.2 % (94.0-98.0); ABG PCO2 (T) 38.8 mmHg (35.0-48.0); ABG PH (T) 7.477 (7.350-7.450); FCOHb 0.3 % (0.5-1.5); FHHb 0.8 % (0.0-5.0); FMetHb 0.3 % (0.0-1.5); FO2Hb 98.6 % (94.0-98.0); MODE vent-ac prvc; PATIENT TEMPERATURE 37.5; PEEP 12 cm H2O; RESPIRATORY RATE 20 b/min; TIDAL VOLUME 450 mL; TOTAL HEMOGLOBIN 9.7 G/dl (13.5-17.5)
--- NOTE | 2024-07-12 06:06 | RADIOLOGY REPORT ---
CHEST RADIOGRAPH Indication: vented Technique: Single frontal view of the chest was obtained COMPARISON: DI CHEST,SINGLE VIEW on DOS: 07/11/24, DI CHEST,SINGLE VIEW on DOS: 07/11/24, DI CHEST,SING LE VIEW on DOS: 07/11/24, DI CHEST,SINGLE VIEW on DOS: 07/10/24, DI CHEST,SINGLE VIEW on DOS: 07/09/24 FINDINGS: Lines and Tubes: Endotracheal tube, enteric catheter and right central venous catheter in satisfactor y position Lungs: Congestion Pleura: No effusion. No pneumothorax. Cardiomediastinal contours: Cardiomegaly Bones: Unremarkable IMPRESSION: Lines and tubes in satisfactory position. No significant interval change.
[2024-07-12] MEDS: K and/or MAG REPLACEMENT MC SCH (08:00)
[2024-07-12] MEDS: furosemide 40mg/4ml inj IV SCH (08:51)
--- NOTE | 2024-07-12 09:59 | PROGRESS NOTE- Residence ---
Progress Note - Resident Providers to CC Resident Creating Document: KAMLA MCCLENDON RES CC: JOSE M CURRIE MD ~ Central Line/PICC still needed: Yes Central Line/PICC Necessity: Prolonged IV access req Zamora-Non Protocol Zamora Indications Met/Not Met: F/C Indications Met Antibiotic Timeout Antibiotic Ordered?: No Subjective No acute overnight events. He is intubated with a FiO2 of 55 down from 85, peep of 12, RASS of zero on sedation. Objective Vital Signs Date Time Temp Pulse Resp B/P (MAP) Pulse Ox O2 Delivery O2 Flow Rate FiO2 07/12/24 08:53 141 07/12/24 07:42 13 07/12/24 07:24 Mechanical Ventilator 60 07/12/24 07:14 96 07/12/24 05:58 125/55 07/12/24 05:56 99.5 07/10/24 15:13 10.0 Result Diagram: 07/12/247 07/12/24 012 General: Elderly male, intubated and sedated with RASS of 0, with FiO2 of 85 Head: Normocephalic with an atraumatic Eyes: Pupils- 3mm, reacting to light, conjunctiva- anicteric Nose and throat: No polyps, septum- normal, no mucosal ulcers Neck: Supple, no lymphadenopathy, no carotid bruit Respiratory: No use of accessory muscles of respiration, bilateral equal air entry present Cardiac: S1-S2 heard, rythm regular, no gallop/murmur Abdomen: non distended, no tenderness, no organomegaly, bowel sounds- heard Extremities: no clubbing, bilateral 1+ pitting pedal edema, no deformities, peripheral pulses- 2+ Skin: warm and dry, no rash, no purpura Neuro: Unable to elicit as patient is sedated Coagulation Studies Laboratory Tests Test 07/03/24 20:05 Prothrombin Time 11.3 SECONDS (9.0-12.0) INR International Normalized Ratio 1.1 INR Activated Partial Thromboplast Time 27 SECONDS (22-32) Coagulation Comments Assessment Assessment 54-year-old male who is ex-smoker (40 years smoking history) and morbidly obese, with a history of COPD was transferred from [facility] for further evaluation and management of sepsis, altered mental status, acute hypoxemic respiratory failure, and acute kidney injury. Patient was initially presented to the transferring facility for altered mentation and found down for prolonged period of time (altered, labored breathing, foaming at mouth). He was initially on BiPAP and later intubated. His FiO2 requirements had been gone up to 90%. He had been on two pressors i.e. Levophed and vasopressin, at the time of transfer Plan Plan Respiratory: Acute hypoxemic respiratory failure 2/2 likely aspiration pneumonia History of COPD extubated on 07/10, reintubated on 07/11 Left lung atelectasis- improved after bronchoscopy on 07/11 -chest x-ray done this morning showed bilateral basilar atelectasis, ETT in correct position -bronchoscopy done showed copious clear secretions, left bronchus mucus plugging on 07/11 -Currently on AC/PRVC with FiO2 of 55, peep 12, tidal volume of 450 cc , ABG- 7.47/38/156/28, PF 219 -mucinex nebulizations q.12 and added Solu-Medrol 30 mg IV q.6 -plan to reduce PEEP and FiO2, and daily SBT Infectious disease: Sepsis present on admission Source likely aspiration pneumonia Completed seven day course of Zosyn on 07/10, and vanco dced Procalcitonin, and resp cultures on 05/12- negative Cardiac: LVEF is 65-70% on echocardiogram Off pressors. AFib- currently rate controlled continue lopressor 50 mg q6 and elquis Fluid overload -mild bump in cr and BUN, will decrease the lasix to 60 mg q12 - repeat Echocardiogram- no shunting Neurologic: Acute metabolic encephalopathy, likely 2/2 sepsis- resolved Continue sedation with propofol and fentanyl Renal: Acute renal failure has resolved. Cr back to baseline with good uop nephrology signed off BUN/creatinine 35/1.53 likely secondary to Lasix Monitor BMP input output chart Morbid obesity: Can not exclude SALLY and OHS Hepatobiliary -bilirubin down to 1.7>>1.3>> 4 -AST/ALT/ALP- 55/170/579- uptrending compared to yesterday -suspect 2/2 drug induced amiodarone Hematology Normocytic normochromic anemia -hemoglobin downtrending daily, at the time of admission 12 now down to 8.7 -monitor H&H, follow up on iron profile, stool for occult blood Events on 07/10 -patient was extubated, transitioned to HFNC and then to BiPAP Events on 07/11 -overnight sats dropped, chest x-ray showed left hemithorax opacification, and got re intubated -bronchoscopy in the a.m. showed copious clear secretions, left bronchus mucus plugging, improved left lung atelectasis on chest x-ray after bronchoscopy -increased dose of Lasix to 60 mg q.8h and added IV Solu-Medrol 30 mg q.6 and Mucinex nebulizations -remains on AC/CMV with peep of 12, FiO2 of 85 Events on 07/12 -on AC/PRVC with a PEEP of 12, FiO2 of 55 -mild bump in creatinine and BUN, reducing the dose of Lasix to 60 mg q.2h -LFTs uptrending, hemoglobin downtrending, labs ordered for anemia workup Lines and tubes: Zamora catheter R IJ CVC Right radial A-line- ETT OGT Code Status: full code Analgesia/sedation: Propofol, fentanyl GI prophylaxis: pepcid DVT prophylaxis: apixaban Nutrition: TFs PT/OT/SP: yes Prognosis: Guarded Disposition: Continue care in ICU Kamla Mcclendon, ICU PGY-2 resident Date of Service: Jul 12, 2024 Billing Provider: JOSE M CURRIE MD,[facility], RES Jul 12, 2024 09:59
[2024-07-12 10:54] LABS: ABG BASE EXCESS 6.4 mmol/L (-2.0-3.0); ABG HCO3 29.4 mmol/L (21.0-28.0); ABG OXYGEN SATURATION 91.9 % (94.0-98.0); ABG PCO2 (T) 37.2 mmHg (35.0-48.0); ABG PH (T) 7.519 (7.350-7.450); ABG PO2 (T) 63.8 mmHg (83.0-108.0); FCOHb 0.1 % (0.5-1.5); FHHb 8.1 % (0.0-5.0); FMetHb 0.3 % (0.0-1.5); FO2Hb 91.5 % (94.0-98.0); MODE VENT - AC; PATIENT TEMPERATURE 37.6; PEEP 12 cm H2O; RESPIRATORY RATE 20 b/min; TIDAL VOLUME 450 mL; TOTAL HEMOGLOBIN 9.5 G/dl (13.5-17.5)
[2024-07-12] MEDS ORDERED: insulin regular, human U-100 10ml vial - multi-dose SQ SCH ×2 (12:00→14:00)
[2024-07-12] MEDS: insulin regular, human U-100 10ml vial - multi-dose SQ SCH (12:15)
--- NOTE | 2024-07-12 16:39 | PROGRESS NOTE ---
Daily Progress Note Providers to CC ~ Antibiotic Timeout Antibiotic Ordered?: Yes Subjective The patient opens his eyes spontaneously remains intubated on ventilator and his chest x-ray is significantly improved from yesterday the white out has resolved. The patient continues to spike fevers Objective Vital Signs Date Time Temp Pulse Resp B/P (MAP) Pulse Ox O2 Delivery O2 Flow Rate FiO2 07/12/24 16:28 85 19 97 Ventilator+ 60 07/12/24 16:00 100.2 123/60 (81) 07/10/24 15:13 10.0 Result Diagram: 07/12/24 0127 07/12/24 012 Gen. intubated on a ventilator, opens his eyes and tracks Lungs clear to ascultation bilaterally, no wheezes rales or rhonchi appreciated Heart irregular rhythm no murmurs rubs or clicks noted Abdomen soft nontender bowel sounds are normoactive Lower extremities no clubbing cyanosis, 1+ pitting edema appreciated bilaterally Coagulation Studies Laboratory Tests Test 07/03/24 20:05 Prothrombin Time 11.3 SECONDS (9.0-12.0) INR International Normalized Ratio 1.1 INR Activated Partial Thromboplast Time 27 SECONDS (22-32) Coagulation Comments Problem\Assessment\Plan Problems/Diagnosis: (1) Sepsis # sepsis/septic shock- secondary to aspiration pneumonia On IV vancomycin IV Zosyn 07/08 Levophed is DC patient was blood pressure is up trending 07/10 has resolved # hypertension- Blood pressure currently is on the low end of normal # acute respiratory failure secondary to aspiration pneumonia Patient was son found the patient not breathing and had aspirated the patient has obstructive sleep apnea and is waiting for a CPAP 07/05 status post bronchoscopy with a large mucus plug causing left upper lobe atelectasis- remains on a ventilator at 60% FiO2 with a PEEP of 10 07/06 improving- on 50% FiO2 with a PEEP of 7.0 07/07 slightly improved on 45% FiO2 however the patient failed spontaneous breathing trial 07/08 the patient has failed spontaneous breathing trial today and now is on 70% FiO2 remains intubated on ventilator 07/09 oxygen has been titrated down to of 60% FiO2 07/10 extubated today on high-flow oxygen and currently on CPAP 07/11 reintubated last evening for completely whiteout of the left lung- status post bronchoscopy with the mucus plugging of the left mainstem bronchus by Dr. Mclean life agent- oxygen demand is improved from 100% O2 now on 70% O2 07/12 on 60% on oxygen remains intubated on a ventilator # AFib RVR On amiodarone and digoxin and esmolol 07/05 remains on amiodarone drip 07/07 amiodarone was discontinued due the patient was slightly bradycardic and l iver function test markedly up trended, esmolol was discontinued as well patient was on p.o. metoprolol 07/08 heart rate is controlled with metoprolol 07/10 heart rate remains controlled # transaminitis with a significant up trend- 07/07 Amiodarone drip was discontinued today - Ultrasound of the abdomen was concerning for possible bile leak gallbladder was absent 07/08 improving since amiodarone was discontinued 07/09 Continues to improve 07/12 liver enzymes continued to up trend # MICKEY Renal function is improving Electrician [employer] Dr. Mckeon is on board and following the patient On a D5W drip 07/05 continues to improve- Dr. Mckeon assessed that the underlying cause is likely ATN 07/06 continues to improve 07/07 continues to improve- nephrology has signed off 07/08 has resolved continue monitor daily CMP 07/12 renal function has worsened the life agent team is back down on the patient's IV Lasix # acute HFpEF- 07/09 ProBNP is 1100 received IV Lasix in his on b.i.d. IV Lasix 07/11 proBNP is 1728 IV Lasix is increased to 60 mg t.i.d. 07/12 IV Lasix doses decreased to 60 mg b.i.d. # obstructive sleep apnea Per the patient's son- awaiting evaluation for a CPAP Date of Service: Jul 12, 2024 Billing Provider: JARET LARA DO Common Visit Codes: [id number] INP/OBS CARE(HIGH) JARET LARA DO Jul 12, 2024 16:39
[2024-07-12 22:00] LABS: MAGNESIUM 2.1 MG/DL (1.5-2.4)
[2024-07-12] MEDS: magnesium sulf-water 2g/50mL 50 ML IV PRN (22:06)
[2024-07-13] VITALS (49 sets, daily range): BP systolic 97–169; BP diastolic 40–76; PULSE 55–83; RESP 0–24; O2SAT 86–97
--- NOTE | 2024-07-13 00:30 | PROGRESS NOTE ---
Progress Note Dictate Providers to CC ~ Antibiotic Ordered?: N/A Objective Vitals Vital Signs Date Time Temp Pulse Resp B/P (MAP) Pulse Ox O2 Delivery O2 Flow Rate FiO2 07/13/24 00:00 99.7 79 18 114/50 (71) 95 07/12/24 23:21 Mechanical Ventilator 55 07/10/24 15:13 10.0 Lab Results: 07/12/24 0127 07/12/24 2145 Coagulation Studies Laboratory Tests Test 07/03/24 20:05 Prothrombin Time 11.3 SECONDS (9.0-12.0) INR International Normalized Ratio 1.1 INR Activated Partial Thromboplast Time 27 SECONDS (22-32) Coagulation Comments Problem\Assessment\Plan Additional Plan TeleICU Patient seen and evaluated with the lithopone charger using HIPPA compliant AV device Remains intubated o2 requirement improving On mech ventilation Sedated Ventilatory support for resp failure Air way clearance, mucolytics Diuretics, monitor kidney function Steriod CCT 60mins MD GUSTAVO Ortega,ANDREA Galarza MD Jul 13, 2024 00:30
[2024-07-13 02:52] LABS: BASOPHILS % (AUTO) 0.1 % (0-1); EOSINOPHILS % (AUTO) 0 % (0-6); HEMATOCRIT 24.2 % (42.0-52.0); HEMOGLOBIN 7.9 g/dl (14.0-17.9); LYMPHOCYTES # (AUTO) 0.4 X10'3 (1.1-4.8); LYMPHOCYTES % (AUTO) 4.6 % (21-51); MEAN CORPUSCULAR HEMOGLOBIN 29.3 PG (27.0-31.0); MEAN CORPUSCULAR HGB CONC 32.7 g/dL (33.0-36.5); MEAN CORPUSCULAR VOLUME 89.6 FL (78-98); MEAN PLATELET VOLUME 11.1 FL (7.4-10.4); MONOCYTES # (AUTO) 0.3 X10'3 (0-0.9); MONOCYTES % (AUTO) 3.6 % (2-12); NEUTROPHILS # (AUTO) 8.2 X10'3 (1.8-7.7); NEUTROPHILS % (AUTO) 91.7 % (42-75); PLATELET COUNT 154 X10'3 (140-440); RED CELL DISTRIBUTION WIDTH 17.3 % (11.5-14.5); WHITE BLOOD COUNT 8.9 X10'3 (4.5-11.0)
[2024-07-13 03:10] LABS: % IRON SATURATION 14 % (11-46); IRON 33 UG/DL (53-167); TOTAL IRON BINDING CAPACITY 244 UG/DL (259-388)
[2024-07-13 03:27] LABS: ALANINE AMINOTRANSFERASE 127 U/L (12-78); ALBUMIN 2.5 G/DL (3.4-5.0); ALBUMIN/GLOBULIN RATIO 0.7 (1.1-1.5); ALKALINE PHOSPHATASE 450 IU/L (46-116); ANION GAP 8 (8-16); ASPARTATE AMINO TRANSFERASE 33 U/L (10-37); BILIRUBIN,TOTAL 0.9 MG/DL (0.1-1.0); BLOOD UREA NITROGEN 53 MG/DL (7-18); BUN/CREATININE RATIO 34.6 (10.0-20.0); CALCIUM 8.7 MG/DL (8.5-10.1); CHLORIDE 100 MMOL/L (99-107); CREATININE 1.53 MG/DL (0.60-1.10); FERRITIN 226 NG/ML (26-388); GLUCOSE 364 MG/DL (70-104); MAGNESIUM 2.6 MG/DL (1.5-2.4); POTASSIUM 4.1 MMOL/L (3.5-5.1); PRO BRAIN NATRIURETIC PEPTIDE 1481 PG/ML (0-125); SODIUM 139 MMOL/L (135-145); TOTAL CARBON DIOXIDE 31.4 MMOL/L (24-32); TOTAL PROTEIN 6.3 G/DL (6.4-8.2); eCRCL 57 ML/MIN; eGFR 48 ML/MIN
[2024-07-13 03:30] LABS: ABG BASE EXCESS 6.7 mmol/L (-2.0-3.0); ABG HCO3 30.4 mmol/L (21.0-28.0); ABG PCO2 (T) 40.5 mmHg (35.0-48.0); ABG PH (T) 7.494 (7.350-7.450); ABG PO2 (T) 88.9 mmHg (83.0-108.0); ALLEN'S TEST Modified; FCOHb 0.3 % (0.5-1.5); FMetHb 0.3 % (0.0-1.5); FO2Hb 95.4 % (94.0-98.0); MODE VENT - AC/PRVC; PATIENT TEMPERATURE 37.3; PEEP 12 cm H2O; RESPIRATORY RATE 20 b/min; TIDAL VOLUME 450 mL; TOTAL HEMOGLOBIN 8.4 G/dl (13.5-17.5)
--- NOTE | 2024-07-13 06:12 | RADIOLOGY REPORT ---
EXAM: XR Chest, 1 View CLINICAL INDICATION: intubated TECHNIQUE: Frontal view of the chest. COMPARISON: DI CHEST,SINGLE VIEW on DOS: 07/12/24, DI CHEST,SINGLE VIEW on DOS: 07/11/24, DI CHEST,SI NGLE VIEW on DOS: 07/11/24, DI CHEST,SINGLE VIEW on DOS: 07/11/24, DI CHEST,SINGLE VIEW on DOS: 07/10/24 FINDINGS: LUNGS AND PLEURAL SPACES: See below. HEART: Cardiomegaly with mild congestion. MEDIASTINUM: Unremarkable. Normal mediastinal contour. BONES/JOINTS: Unremarkable. No acute fracture. TUBES, LINES AND DEVICES: Right internal jugular central venous catheter tip in the superior vena c christal. The endotracheal tube (ETT) is in satisfactory position. Enteric tube tip cannot be seen but i s below the diaphragm. OTHER FINDINGS: . . . IMPRESSION: Cardiomegaly with mild congestion.
[2024-07-13] MEDS: furosemide 40mg/4ml inj IV SCH (07:55)
--- NOTE | 2024-07-13 07:59 | PROGRESS NOTE ---
Progress Note Dictate Providers to CC ~ Progress Note: No new acute issues overnight. Remains on high PEEP Central Line/PICC still needed: Yes [facility] Indications Met/Not Met: F/C Indications Met Antibiotic Ordered?: Yes Subjective Subjective Comfortable Objective Vitals Vital Signs Date Time Temp Pulse Resp B/P (MAP) Pulse Ox O2 Delivery O2 Flow Rate FiO2 07/13/24 07:47 50 07/13/24 07:38 83 21 Mechanical Ventilator 07/13/24 07:27 93 07/13/24 06:00 98.6 119/52 (74) 07/10/24 15:13 10.0 Lab Results: 07/13/2422407/13/24224 Objective Heart: A Fib Lungs: clear Abd: soft, non-tender, BS (+) Ext: No edema Neuro: sedated Coagulation Studies Laboratory Tests Test 07/03/24 20:05 Prothrombin Time 11.3 SECONDS (9.0-12.0) INR International Normalized Ratio 1.1 INR Activated Partial Thromboplast Time 27 SECONDS (22-32) Coagulation Comments Problem\Assessment\Plan Additional Plan 1-Acute Hypoxemic Resp Failure -Continue weaning FiO2/PEEP 2-CHF -Decrease Lasix 3-Chronic A Fib -Continue Eliquis -Rate control 4-PNA -Complete 5d of abx Michell Mclean CC time 35min Sepsis Screening Reassessment Date: Jul 13, 2024 JOSE M MCLEAN MD Jul 13, 2024 07:59
--- NOTE | 2024-07-13 19:30 | PROGRESS NOTE ---
Daily Progress Note Providers to CC ~ Antibiotic Timeout Antibiotic Ordered?: Yes Subjective A attempts to wean the patient off the ventilator was unsuccessful today the patient currently remains on 40% oxygen with a PEEP of 10 he continues to spike fevers as well and thus repeat blood cultures are ordered Objective Vital Signs Date Time Temp Pulse Resp B/P (MAP) Pulse Ox O2 Delivery O2 Flow Rate FiO2 07/13/24 19:23 64 20 Mechanical Ventilator 40 07/13/24 19:17 96 07/13/24 18:00 100.4 135/72 (93) 07/10/24 15:13 10.0 Result Diagram: 07/13/24 0225 07/13/24 0225 Gen. intubated on a ventilator, opens his eyes and tracks Lungs clear to ascultation bilaterally, no wheezes rales or rhonchi appreciated Heart irregular rhythm no murmurs rubs or clicks noted Abdomen soft nontender bowel sounds are normoactive Lower extremities no clubbing cyanosis, 1+ pitting edema appreciated bilaterally Coagulation Studies Laboratory Tests Test 07/03/24 20:05 Prothrombin Time 11.3 SECONDS (9.0-12.0) INR International Normalized Ratio 1.1 INR Activated Partial Thromboplast Time 27 SECONDS (22-32) Coagulation Comments Problem\Assessment\Plan Problems/Diagnosis: (1) Sepsis # sepsis/septic shock- secondary to aspiration pneumonia On IV vancomycin IV Zosyn 07/08 Levophed is DC patient was blood pressure is up trending 07/10 has resolved 07/13 patient continues to spike fevers thus I have reordered blood cultures # hypertension- Blood pressure currently under acceptable control # acute respiratory failure secondary to aspiration pneumonia Patient was son found the patient not breathing and had aspirated the patient has obstructive sleep apnea and is waiting for a CPAP 07/05 status post bronchoscopy with a large mucus plug causing left upper lobe atelectasis- remains on a ventilator at 60% FiO2 with a PEEP of 10 07/06 improving- on 50% FiO2 with a PEEP of 7.0 07/07 slightly improved on 45% FiO2 however the patient failed spontaneous breathing trial 07/08 the patient has failed spontaneous breathing trial today and now is on 70% FiO2 remains intubated on ventilator 07/09 oxygen has been titrated down to of 60% FiO2 07/10 extubated today on high-flow oxygen and currently on CPAP 07/11 reintubated last evening for completely whiteout of the left lung- status post bronchoscopy with the mucus plugging of the left mainstem bronchus by Dr. Mclean glass decorator- oxygen demand is improved from 100% O2 now on 70% O2 07/12 on 60% on oxygen remains intubated on a ventilator 07/13 the patient remains on a ventilator currently on 40% oxygen with a PEEP of 10 # AFib RVR On amiodarone and digoxin and esmolol 07/05 remains on amiodarone drip 07/07 amiodarone was discontinued due the patient was slightly bradycardic and l iver function test markedly up trended, esmolol was discontinued as well patient was on p.o. metoprolol 07/08 heart rate is controlled with metoprolol 07/10 heart rate remains controlled # transaminitis with a significant up trend- 07/07 Amiodarone drip was discontinued today - Ultrasound of the abdomen was concerning for possible bile leak gallbladder was absent 07/08 improving since amiodarone was discontinued 07/09 Continues to improve 07/12 liver enzymes continued to up trend 07/13 significantly improved today # MICKEY Renal function is improving Tender Coordinator Dr. Mckeon is on board and following the patient On a D5W drip 07/05 continues to improve- Dr. Mckeon assessed that the underlying cause is likely ATN 07/06 continues to improve 07/07 continues to improve- nephrology has signed off 07/08 has resolved continue monitor daily CMP 07/12 renal function has worsened the glass decorator team is back down on the patient's IV Lasix 07/13 renal function has stabilized today to continue to monitor # acute HFpEF- 07/09 ProBNP is 1100 received IV Lasix in his on b.i.d. IV Lasix 07/11 proBNP is 1728 IV Lasix is increased to 60 mg t.i.d. 07/12 IV Lasix doses decreased to 60 mg b.i.d. # obstructive sleep apnea Per the patient's son- awaiting evaluation for a CPAP Date of Service: Jul 13, 2024 Billing Provider: JARET LARA DO Common Visit Codes: [id number] INP/OBS CARE(HIGH) JARET LARA DO Jul 13, 2024 19:30
[2024-07-13] MEDS: insulin glargine (Lantus) pen - multi-dose SQ SCH (20:21)
[2024-07-13] MEDS ORDERED: insulin glargine (Lantus) pen - multi-dose SQ SCH (21:00)
[2024-07-14] VITALS (48 sets, daily range): BP systolic 110–169; BP diastolic 48–79; PULSE 58–94; RESP 0–58; O2SAT 89–99
[2024-07-14 02:46] LABS: BASOPHILS % (AUTO) 0.1 % (0-1); EOSINOPHILS % (AUTO) 0 % (0-6); HEMATOCRIT 26.5 % (42.0-52.0); HEMOGLOBIN 8.5 g/dl (14.0-17.9); LYMPHOCYTES # (AUTO) 0.4 X10'3 (1.1-4.8); LYMPHOCYTES % (AUTO) 5.8 % (21-51); MEAN CORPUSCULAR HEMOGLOBIN 28.6 PG (27.0-31.0); MEAN CORPUSCULAR HGB CONC 32.1 g/dL (33.0-36.5); MEAN PLATELET VOLUME 11.3 FL (7.4-10.4); MONOCYTES # (AUTO) 0.3 X10'3 (0-0.9); MONOCYTES % (AUTO) 5.1 % (2-12); PLATELET COUNT 160 X10'3 (140-440); RED BLOOD COUNT 2.98 X10'6 (4.70-6.10); RED CELL DISTRIBUTION WIDTH 17.1 % (11.5-14.5); WHITE BLOOD COUNT 6.7 X10'3 (4.5-11.0)
[2024-07-14 02:49] LABS: ABG HCO3 25.7 mmol/L (21.0-28.0); ABG OXYGEN SATURATION 92.3 % (94.0-98.0); ABG PCO2 (T) 32.2 mmHg (35.0-48.0); ABG PO2 (T) 67.3 mmHg (83.0-108.0); ALLEN'S TEST Modified; FCOHb 0.2 % (0.5-1.5); FHHb 7.7 % (0.0-5.0); FMetHb 0.3 % (0.0-1.5); FO2Hb 91.8 % (94.0-98.0); MODE vent- ac prvc; PATIENT TEMPERATURE 37.3; PEEP 10 cm H2O; RESPIRATORY RATE 20 b/min; TIDAL VOLUME 450 mL; TOTAL HEMOGLOBIN 9.2 G/dl (13.5-17.5)
[2024-07-14 03:02] LABS: ALANINE AMINOTRANSFERASE 118 U/L (12-78); ALBUMIN 2.7 G/DL (3.4-5.0); ALBUMIN/GLOBULIN RATIO 0.8 (1.1-1.5); ALKALINE PHOSPHATASE 386 IU/L (46-116); ANION GAP 9 (8-16); ASPARTATE AMINO TRANSFERASE 16 U/L (10-37); BILIRUBIN,TOTAL 0.8 MG/DL (0.1-1.0); BLOOD UREA NITROGEN 64 MG/DL (7-18); BUN/CREATININE RATIO 44.1 (10.0-20.0); CALCIUM 8.9 MG/DL (8.5-10.1); CHLORIDE 102 MMOL/L (99-107); CREATININE 1.45 MG/DL (0.60-1.10); GLUCOSE 387 MG/DL (70-104); MAGNESIUM 2.5 MG/DL (1.5-2.4); PHOSPHORUS 3.8 MG/DL (2.3-4.5); SODIUM 141 MMOL/L (135-145); TOTAL CARBON DIOXIDE 30.5 MMOL/L (24-32); TOTAL PROTEIN 6.3 G/DL (6.4-8.2); eCRCL 60 ML/MIN; eGFR 51 ML/MIN
[2024-07-14 03:03] LABS: ANISOCYTOSIS 1+; LARGE PLATELETS FEW; PLATELET ESTIMATE NORMAL
--- NOTE | 2024-07-14 04:02 | PROGRESS NOTE ---
Progress Note Dictate Providers to CC ~ Antibiotic Ordered?: N/A Objective Vitals Vital Signs Date Time Temp Pulse Resp B/P (MAP) Pulse Ox O2 Delivery O2 Flow Rate FiO2 07/14/24 03:00 18 50 07/14/24 03:00 99.7 66 115/56 (75) 99 Mechanical Ventilator 07/10/24 15:13 10.0 Lab Results: 07/14/24 0200 07/14/24 0200 Coagulation Studies Laboratory Tests Test 07/03/24 20:05 Prothrombin Time 11.3 SECONDS (9.0-12.0) INR International Normalized Ratio 1.1 INR Activated Partial Thromboplast Time 27 SECONDS (22-32) Coagulation Comments Problem\Assessment\Plan Additional Plan TeleICU Patient seen and evaluated with the charge gang weigher using HIPPA compliant AV device Remain ventilated On mech ventilation Sedated Ventilatory support for resp failure Air way clearance, mucolytics MICKEY monitor kidney function Steriod Daily SBT CCT 60mins MD GUSTAVO Ortega,ANDREA Galarza MD Jul 14, 2024 04:02
--- NOTE | 2024-07-14 06:39 | RADIOLOGY REPORT ---
CHEST RADIOGRAPH Indication: Intubated Technique: Single frontal view of the chest was obtained COMPARISON: DI CHEST,SINGLE VIEW on DOS: 07/13/24, DI CHEST,SINGLE VIEW on DOS: 07/12/24, DI CHEST,SING LE VIEW on DOS: 07/11/24, DI CHEST,SINGLE VIEW on DOS: 07/11/24, DI CHEST,SINGLE VIEW on DOS: 07/11/24 FINDINGS: Lines and Tubes: Unchanged Lungs: Clear Pleura: No effusion. No pneumothorax. Cardiomediastinal contours: Stable cardiomegaly. Bones: Unremarkable IMPRESSION: 1. No acute disease. 2. Lines and tubes unchanged. 3. Stable cardiomegaly.
--- NOTE | 2024-07-14 06:40 | PROGRESS NOTE ---
Progress Note Dictate Providers to CC ~ Progress Note: No new acute issues overnight Central Line/PICC still needed: N\A [facility] Indications Met/Not Met: F/C Indications Met Antibiotic Ordered?: Yes Subjective Subjective Comfortable Objective Vitals Vital Signs Date Time Temp Pulse Resp B/P (MAP) Pulse Ox O2 Delivery O2 Flow Rate FiO2 07/14/24 06:00 99.1 66 18 126/60 (82) 89 Mechanical Ventilator 50 07/10/24 15:13 10.0 Lab Results: 07/14/24 0200 07/14/24 0200 Objective Heart: A Fib Lungs: clear Abd: soft, non-tender, BS (+) Ext: No edema Neuro: sedated Coagulation Studies Laboratory Tests Test 07/03/24 20:05 Prothrombin Time 11.3 SECONDS (9.0-12.0) INR International Normalized Ratio 1.1 INR Activated Partial Thromboplast Time 27 SECONDS (22-32) Coagulation Comments Problem\Assessment\Plan Additional Plan 1-Acute Hypoxemic Resp Failure -Weaning trials 2-CHF -Decrease Lasix 3-PNA -Complete 5d of abx 4-A Fib -Continue current plan Michell Mclean CC time 35min Sepsis Screening Reassessment Date: Jul 14, 2024 JOSE M MCLEAN MD Jul 14, 2024 06:40
[2024-07-14] MEDS: insulin regular, human U-100 10ml vial - multi-dose SQ SCH (08:36)
[2024-07-14] MEDS: insulin glargine (Lantus) pen - multi-dose SQ ONE (08:37)
[2024-07-14] MEDS: furosemide 40mg/4ml inj IV SCH (08:43)
--- NOTE | 2024-07-14 19:24 | PROGRESS NOTE ---
Daily Progress Note Providers to CC ~ Antibiotic Timeout Antibiotic Ordered?: Yes Subjective The patient was extubated today he was pretty oriented though the nurse did mentioned he was hallucinating a little bit mentioned about cats in the room when I asked him if he had any request he asked for a million dollars Objective Vital Signs Date Time Temp Pulse Resp B/P (MAP) Pulse Ox O2 Delivery O2 Flow Rate FiO2 07/14/24 19:14 68 14 95 [place] Nasal Cannula* 15 71 07/14/24 18:00 99.5 123/75 (91) Result Diagram: 07/14/24 0200 07/14/24 0200 Gen. intubated on a ventilator, opens his eyes and tracks Lungs clear to ascultation bilaterally, no wheezes rales or rhonchi appreciated Heart irregular rhythm no murmurs rubs or clicks noted Abdomen soft nontender bowel sounds are normoactive Lower extremities no clubbing cyanosis, 1+ pitting edema appreciated bilaterally Coagulation Studies Laboratory Tests Test 07/03/24 20:05 Prothrombin Time 11.3 SECONDS (9.0-12.0) INR International Normalized Ratio 1.1 INR Activated Partial Thromboplast Time 27 SECONDS (22-32) Coagulation Comments Problem\Assessment\Plan Problems/Diagnosis: (1) Sepsis # sepsis/septic shock- secondary to aspiration pneumonia On IV vancomycin IV Zosyn 07/08 Levophed is DC patient was blood pressure is up trending 07/10 has resolved 07/13 patient continues to spike fevers thus I have reordered blood cultures 07/14 blood cultures negative times 24 hours, sputum cultures Gram-positive cocci # hypertension- Blood pressure currently under acceptable control # acute respiratory failure secondary to aspiration pneumonia Patient was son found the patient not breathing and had aspirated the patient has obstructive sleep apnea and is waiting for a CPAP 07/05 status post bronchoscopy with a large mucus plug causing left upper lobe atelectasis- remains on a ventilator at 60% FiO2 with a PEEP of 10 07/06 improving- on 50% FiO2 with a PEEP of 7.0 07/07 slightly improved on 45% FiO2 however the patient failed spontaneous breathing trial 07/08 the patient has failed spontaneous breathing trial today and now is on 70% FiO2 remains intubated on ventilator 07/09 oxygen has been titrated down to of 60% FiO2 07/10 extubated today on high-flow oxygen and currently on CPAP 4/16 reintubated last evening for completely whiteout of the left lung- status post bronchoscopy with the mucus plugging of the left mainstem bronchus by Dr. Mclean rn flight- oxygen demand is improved from 100% O2 now on 70% O2 07/12 on 60% on oxygen remains intubated on a ventilator 07/13 the patient remains on a ventilator currently on 40% oxygen with a PEEP of 10 07/14 patient was on 19 L of high-flow oxygen via [place] # AFib RVR On amiodarone and digoxin and esmolol 07/05 remains on amiodarone drip 07/07 amiodarone was discontinued due the patient was slightly bradycardic and l iver function test markedly up trended, esmolol was discontinued as well patient was on p.o. metoprolol 07/08 heart rate is controlled with metoprolol 07/10 heart rate remains controlled 07/14 on apixaban and metoprolol tartrate 50 mg q.6 hours # transaminitis with a significant up trend- 07/07 Amiodarone drip was discontinued today - Ultrasound of the abdomen was concerning for possible bile leak gallbladder was absent 07/08 improving since amiodarone was discontinued 07/09 Continues to improve 07/12 liver enzymes continued to up trend 07/13 significantly improved today 07/14 continues to improve daily # MICKEY Renal function is improving Acid Plant Helper Dr. Mckeon is on board and following the patient On a D5W drip 07/05 continues to improve- Dr. Mckeon assessed that the underlying cause is likely ATN 07/06 continues to improve 07/07 continues to improve- nephrology has signed off 07/08 has resolved continue monitor daily CMP 07/12 renal function has worsened the rn flight team is back down on the patient's IV Lasix 07/13 renal function has stabilized today to continue to monitor # acute HFpEF- 07/09 ProBNP is 1100 received IV Lasix in his on b.i.d. IV Lasix 07/11 proBNP is 1728 IV Lasix is increased to 60 mg t.i.d. 07/12 IV Lasix doses decreased to 60 mg b.i.d. # obstructive sleep apnea Per the patient's son- awaiting evaluation for a CPAP Date of Service: Jul 14, 2024 Billing Provider: JARET LARA DO Common Visit Codes: [id number] INP/OBS CARE(HIGH) JARET LARA DO Jul 14, 2024 19:24
[2024-07-14] MEDS: insulin glargine (Lantus) pen - multi-dose SQ SCH (19:41)
[2024-07-15] VITALS (40 sets, daily range): BP systolic 101–171; BP diastolic 46–92; PULSE 49–127; RESP 11–24; O2SAT 88–99
[2024-07-15 03:14] LABS: BASOPHILS % (AUTO) 0.1 % (0-1); EOSINOPHILS % (AUTO) 0 % (0-6); HEMATOCRIT 29.5 % (42.0-52.0); HEMOGLOBIN 9.5 g/dl (14.0-17.9); LYMPHOCYTES # (AUTO) 0.5 X10'3 (1.1-4.8); MEAN CORPUSCULAR HEMOGLOBIN 29.1 PG (27.0-31.0); MEAN CORPUSCULAR HGB CONC 32.4 g/dL (33.0-36.5); MEAN CORPUSCULAR VOLUME 89.8 FL (78-98); MEAN PLATELET VOLUME 10.1 FL (7.4-10.4); MONOCYTES # (AUTO) 0.3 X10'3 (0-0.9); MONOCYTES % (AUTO) 3.9 % (2-12); NEUTROPHILS # (AUTO) 7.4 X10'3 (1.8-7.7); PLATELET COUNT 162 X10'3 (140-440); RED BLOOD COUNT 3.29 X10'6 (4.70-6.10); RED CELL DISTRIBUTION WIDTH 17.4 % (11.5-14.5); WHITE BLOOD COUNT 8.2 X10'3 (4.5-11.0)
[2024-07-15 03:24] LABS: ALANINE AMINOTRANSFERASE 108 U/L (12-78); ALBUMIN 2.9 G/DL (3.4-5.0); ALBUMIN/GLOBULIN RATIO 0.8 (1.1-1.5); ALKALINE PHOSPHATASE 347 IU/L (46-116); ANION GAP 8 (8-16); ASPARTATE AMINO TRANSFERASE 24 U/L (10-37); BILIRUBIN,TOTAL 1.4 MG/DL (0.1-1.0); BLOOD UREA NITROGEN 61 MG/DL (7-18); BUN/CREATININE RATIO 46.6 (10.0-20.0); CALCIUM 9.2 MG/DL (8.5-10.1); CHLORIDE 106 MMOL/L (99-107); CREATININE 1.31 MG/DL (0.60-1.10); GLUCOSE 222 MG/DL (70-104); MAGNESIUM 2.6 MG/DL (1.5-2.4); POTASSIUM 4.2 MMOL/L (3.5-5.1); SODIUM 148 MMOL/L (135-145); TOTAL CARBON DIOXIDE 34.1 MMOL/L (24-32); TOTAL PROTEIN 6.7 G/DL (6.4-8.2); eCRCL 67 ML/MIN; eGFR 57 ML/MIN
--- NOTE | 2024-07-15 06:34 | PROGRESS NOTE ---
Progress Note Dictate Providers to CC ~ Progress Note: Tolerated BiPAP last night Central Line/PICC still needed: N\A [facility] Indications Met/Not Met: F/C Indications Not Met Antibiotic Ordered?: No Subjective Subjective Comfortable Objective Vitals Vital Signs Date Time Temp Pulse Resp B/P (MAP) Pulse Ox O2 Delivery O2 Flow Rate FiO2 07/15/24 06:00 98.4 49 16 157/92 (113) 90 Bi-pap/CPAP 80 07/14/24 23:04 15.0 Lab Results: 07/15/24 0223 07/15/24 0223 Objective Heart: A Fib Lungs: clear Abd: soft, non-tender, BS (+) Ext: No edema Neuro: awake Coagulation Studies Laboratory Tests Test 07/03/24 20:05 Prothrombin Time 11.3 SECONDS (9.0-12.0) INR International Normalized Ratio 1.1 INR Activated Partial Thromboplast Time 27 SECONDS (22-32) Coagulation Comments Problem\Assessment\Plan Additional Plan 1-Chronic A Fib -Continue current tx 2-CHF -Continue Lasix daily 3-SALLY/OHS -BiPAP qhs/prn Mcihell Mclean Sepsis Screening Reassessment Date: Jul 15, 2024 JOSE M MCLEAN MD Jul 15, 2024 06:34
[2024-07-15 07:19] LABS: ABG BASE EXCESS 5.2 mmol/L (-2.0-3.0); ABG HCO3 28.6 mmol/L (21.0-28.0); ABG OXYGEN SATURATION 94.2 % (94.0-98.0); ABG PCO2 (T) 37.5 mmHg (35.0-48.0); ABG PO2 (T) 71.1 mmHg (83.0-108.0); ALLEN'S TEST POSITIVE; FCOHb 0.1 % (0.5-1.5); FHHb 5.8 % (0.0-5.0); FMetHb 0.3 % (0.0-1.5); FO2Hb 93.8 % (94.0-98.0); MODE MASK - BIPAP; PATIENT TEMPERATURE 36.9; RESPIRATORY RATE 10 b/min
[2024-07-15] MEDS ORDERED: acetaminophen 325mg/10.15ml oral unit dose solution PO PRN (08:20)
[2024-07-15] MEDS ORDERED: DEXTROSE 15 GM of carb/4 tabs (each vial/BOTTLE has 4 tablets) PO PRN ×2 (08:21)
[2024-07-15] MEDS ORDERED: POTASSIUM CHLORIDE 20 MEQ/15 ML oral solution PO PRN (08:23)
[2024-07-15] MEDS: famotidine 20mg tablet PO SCH (08:34)
--- NOTE | 2024-07-15 10:05 | RADIOLOGY REPORT ---
CLINICAL INFORMATION: ICU patient. Daily chest x-ray. TECHNIQUE: Single AP portable chest radiograph was obtained. COMPARISON: DI CHEST,SINGLE VIEW on DOS: 07/14/24, DI CHEST,SINGLE VIEW on DOS: 07/13/24, DI CHEST,SING LE VIEW on DOS: 07/12/24 FINDINGS: Interval removal of the endotracheal tube and enteric tube. Stable satisfactory positioning of the ri ght internal jugular central venous catheter. Scattered areas of subsegmental atelectasis. No focal c onsolidation. No pneumothorax or pleural effusion visualized. Portions of the left costophrenic angle are excluded from the [id number] of the exam. No other significant interval change. IMPRESSION: 1. Interval removal of the endotracheal tube and enteric tube. 2. Scattered areas of atelectasis. No evidence of acute disease in the chest. No other significant in terval change.
[2024-07-15] MEDS: lisinopril 20mg tablet PO SCH (11:08)
[2024-07-15] MEDS: lactose-reduced food (Ensure Enlive) - 237ml bottle PO SCH (13:00)
[2024-07-15] MEDS: metoprolol tartrate 1mg/ml inj IV ONE (13:35)
[2024-07-15] MEDS: metoprolol tartrate 25mg tablet PO SCH (13:44)
[2024-07-15] MEDS: INSULIN LISPRO 100 UNIT/ML INSULN.PEN MULTI-DOSE SQ SCH ×2 (14:25→16:46)
--- NOTE | 2024-07-15 18:09 | PROGRESS NOTE ---
Daily Progress Note Providers to CC ~ Antibiotic Timeout Antibiotic Ordered?: No Subjective The patient was on both a non-rebreather mask and high-flow oxygen he was placed back on BiPAP later in the afternoon and currently is on 30 L of high-flow oxygen- when I evaluated the patient today the nurse was suctioning out significant amount of secretions. I asked the patient if he had any request for which she responded "a million dollars." Objective Vital Signs Date Time Temp Pulse Resp B/P (MAP) Pulse Ox O2 Delivery O2 Flow Rate FiO2 07/15/24 17:54 99.1 106 15 119/79 (92) 95 High Flow Nasal Cannula 30.0 07/15/24 17:00 100 Result Diagram: 07/15/2422207/15/24 022 Gen. Significant secretions however not in any distress, alert and oriented however per nursing is seeing cats Lungs clear to ascultation bilaterally, no wheezes rales or rhonchi appreciated Heart irregular rhythm no murmurs rubs or clicks noted Abdomen soft nontender bowel sounds are normoactive Lower extremities no clubbing cyanosis, 1+ pitting edema appreciated bilaterally Coagulation Studies Laboratory Tests Test 07/03/24 20:05 Prothrombin Time 11.3 SECONDS (9.0-12.0) INR International Normalized Ratio 1.1 INR Activated Partial Thromboplast Time 27 SECONDS (22-32) Coagulation Comments Problem\\Assessment\\Plan Problems/Diagnosis: (1) Sepsis # sepsis/septic shock- secondary to aspiration pneumonia On IV vancomycin IV Zosyn 07/08 Levophed is DC patient was blood pressure is up trending 07/10 has resolved 07/13 patient continues to spike fevers thus I have reordered blood cultures 07/14 blood cultures negative times 24 hours, sputum cultures Gram-positive cocci 07/15 sputum positive for MRSA- I spoke with Dr. 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 # hypertension- Blood pressure currently under acceptable control # acute respiratory failure secondary to aspiration pneumonia Patient was son found the patient not breathing and had aspirated the patient has obstructive sleep apnea and is waiting for a CPAP 07/05 status post bronchoscopy with a large mucus plug causing left upper lobe atelectasis- remains on a ventilator at 60% FiO2 with a PEEP of 10 07/06 improving- on 50% FiO2 with a PEEP of 7.0 07/07 slightly improved on 45% FiO2 however the patient failed spontaneous breathing trial 07/08 the patient has failed spontaneous breathing trial today and now is on 70% FiO2 remains intubated on ventilator 07/09 oxygen has been titrated down to of 60% FiO2 07/10 extubated today on high-flow oxygen and currently on CPAP 07/11 reintubated last evening for completely whiteout of the left lung- status post bronchoscopy with the mucus plugging of the left mainstem bronchus by Dr. Mclean manager lab- oxygen demand is improved from 100% O2 now on 70% O2 07/12 on 60% on oxygen remains intubated on a ventilator 07/13 the patient remains on a ventilator currently on 40% oxygen with a PEEP of 10 07/14 patient was on 19 L of high-flow oxygen via [place] 07/15 the patient now is on 30 L of high-flow oxygen via [place] # AFib RVR On amiodarone and digoxin and esmolol 07/05 remains on amiodarone drip 07/07 amiodarone was discontinued due the patient was slightly bradycardic and l iver function test markedly up trended, esmolol was discontinued as well patient was on p.o. metoprolol 07/08 heart rate is controlled with metoprolol 07/10 heart rate remains controlled 07/14 on apixaban and metoprolol tartrate 50 mg q.6 hours # transaminitis with a significant up trend- 07/07 Amiodarone drip was discontinued today - Ultrasound of the abdomen was concerning for possible bile leak gallbladder was absent 07/08 improving since amiodarone was discontinued 07/09 Continues to improve 07/12 liver enzymes continued to up trend 07/13 significantly improved today 07/14 continues to improve daily # MICKEY Renal function is improving Surgical Pathologist Dr. Mckeon is on board and following the patient On a D5W drip 07/05 continues to improve- Dr. Mckeon assessed that the underlying cause is likely ATN 07/06 continues to improve 07/07 continues to improve- nephrology has signed off 07/08 has resolved continue monitor daily CMP 07/12 renal function has worsened the manager lab team is back down on the patient's IV Lasix 07/13 renal function has stabilized today to continue to monitor # acute HFpEF- 07/09 ProBNP is 1100 received IV Lasix in his on b.i.d. IV Lasix 4/16 proBNP is 1728 IV Lasix is increased to 60 mg t.i.d. 07/12 IV Lasix doses decreased to 60 mg b.i.d. # obstructive sleep apnea Per the patient's son- awaiting evaluation for a CPAP Date of Service: Jul 15, 2024 Billing Provider: JARET LARA DO Common Visit Codes: [id number] INP/OBS CARE(HIGH) JARET LARA DO Jul 15, 2024 18:09
[2024-07-15] MEDS: docusate sodium 100mg/10ml UD cup PO SCH (20:26)
[2024-07-15] MEDS: apixaban 5mg tablet PO SCH (20:26)
[2024-07-15] MEDS: diltiazem 5mg/ml 5ml inj. IV ONE (22:02)
[2024-07-16] VITALS (43 sets, daily range): BP systolic 79–116; BP diastolic 49–76; PULSE 56–152; RESP 13–25; O2SAT 86–100
[2024-07-16] MEDS: amiodarone 150mg/dext, iso-os 100 ML IV ONE (02:03)
[2024-07-16] MEDS: amiodarone/D5 360MG/200ML BAG 200 ML IV SCH (02:03)
[2024-07-16 05:40] LABS: BASOPHILS # (AUTO) 0.1 X10'3 (0-0.2); BASOPHILS % (AUTO) 0.5 % (0-1); EOSINOPHILS % (AUTO) 0.2 % (0-6); HEMATOCRIT 35.5 % (42.0-52.0); HEMOGLOBIN 11.4 g/dl (14.0-17.9); LYMPHOCYTES # (AUTO) 1.4 X10'3 (1.1-4.8); LYMPHOCYTES % (AUTO) 10.1 % (21-51); MEAN CORPUSCULAR HEMOGLOBIN 28.9 PG (27.0-31.0); MEAN CORPUSCULAR HGB CONC 32.1 g/dL (33.0-36.5); MEAN CORPUSCULAR VOLUME 89.7 FL (78-98); MONOCYTES # (AUTO) 0.6 X10'3 (0-0.9); MONOCYTES % (AUTO) 4.3 % (2-12); NEUTROPHILS # (AUTO) 11.6 X10'3 (1.8-7.7); NEUTROPHILS % (AUTO) 84.9 % (42-75); PLATELET COUNT 130 X10'3 (140-440); RED BLOOD COUNT 3.95 X10'6 (4.70-6.10); RED CELL DISTRIBUTION WIDTH 17.3 % (11.5-14.5); WHITE BLOOD COUNT 13.7 X10'3 (4.5-11.0)
--- NOTE | 2024-07-16 05:51 | RADIOLOGY REPORT ---
CHEST RADIOGRAPH Indication: Intubated Technique: Single frontal view of the chest was obtained COMPARISON: DI CHEST,SINGLE VIEW on DOS: 07/15/24, DI CHEST,SINGLE VIEW on DOS: 07/14/24, DI CHEST,SING LE VIEW on DOS: 07/13/24, DI CHEST,SINGLE VIEW on DOS: 07/12/24, DI CHEST,SINGLE VIEW on DOS: 07/11/24 FINDINGS: Lines and Tubes: None Lungs: Patchy bilateral lower lobe airspace disease. Pleura: No effusion. No pneumothorax. Cardiomediastinal contours: Cardiomegaly Bones: Unremarkable IMPRESSION: Bibasilar subsegmental atelectasis.
[2024-07-16 05:54] LABS: ALANINE AMINOTRANSFERASE 115 U/L (12-78); ALBUMIN 2.5 G/DL (3.4-5.0); ALBUMIN/GLOBULIN RATIO 0.7 (1.1-1.5); ALKALINE PHOSPHATASE 319 IU/L (46-116); ANION GAP 6 (8-16); BILIRUBIN,TOTAL 1.7 MG/DL (0.1-1.0); BLOOD UREA NITROGEN 68 MG/DL (7-18); BUN/CREATININE RATIO 54.4 (10.0-20.0); CALCIUM 8.9 MG/DL (8.5-10.1); CHLORIDE 105 MMOL/L (99-107); CREATININE 1.25 MG/DL (0.60-1.10); GLUCOSE 125 MG/DL (70-104); MAGNESIUM 2.6 MG/DL (1.5-2.4); PREALBUMIN 30.6 MG/DL (19-36); SODIUM 142 MMOL/L (135-145); TOTAL CARBON DIOXIDE 31.3 MMOL/L (24-32); TOTAL PROTEIN 6.3 G/DL (6.4-8.2); eCRCL 70 ML/MIN; eGFR 60 ML/MIN
[2024-07-16 05:55] LABS: ASPARTATE AMINO TRANSFERASE 52 U/L (10-37); PHOSPHORUS 3.6 MG/DL (2.3-4.5); POTASSIUM 4.5 MMOL/L (3.5-5.1)
--- NOTE | 2024-07-16 09:42 | PROGRESS NOTE- Residence ---
Progress Note - Resident Providers to CC Resident Creating Document: KAMLA MCCLENDON RES CC: JOSE M CURRIE MD ~ Central Line/PICC still needed: Yes Central Line/PICC Necessity: Prolonged IV access req Zamora-Non Protocol Zamora Indications Met/Not Met: F/C Indications Met Antibiotic Timeout Antibiotic Ordered?: No Subjective Patient is seen this morning, was extubated on 07/14, currently he is on BiPAP with FiO2 of 100. Overnight events- he had tachycardia, SVT with heart rates of 150s and was started on amnio drip. Currently heart rate is in the range of 60s Objective Vital Signs Date Time Temp Pulse Resp B/P (MAP) Pulse Ox O2 Delivery O2 Flow Rate FiO2 07/16/24 09:34 62 26 99 100 07/16/24 07:45 15.0 07/16/24 07:38 Bi-pap 07/16/24 07:00 98.4 116/69 (85) Result Diagram: 07/16/24 0509 07/16/24 0509 General: Adult male, awake and alert, on BiPAP Head: Normocephalic with an atraumatic Eyes: Pupils- 3mm, reacting to light, conjunctiva- anicteric Nose and throat: No polyps, septum- normal, no mucosal ulcers Neck: Supple, no lymphadenopathy, no carotid bruit Respiratory: No use of accessory muscles of respiration, bilateral equal air entry present Cardiac: S1-S2 heard, rythm regular, no gallop/murmur Abdomen: non distended, no tenderness, no organomegaly, bowel sounds- heard Extremities: no clubbing, bilateral 1+ pitting pedal edema, no deformities, peripheral pulses- 2+ Skin: warm and dry, no rash, no purpura Neuro: Moving all extremities Coagulation Studies Laboratory Tests Test 07/03/24 20:05 Prothrombin Time 11.3 SECONDS (9.0-12.0) INR International Normalized Ratio 1.1 INR Activated Partial Thromboplast Time 27 SECONDS (22-32) Coagulation Comments Assessment Assessment 54-year-old male who is ex-smoker (40 years smoking history) and morbidly obese, with a history of COPD was transferred from [facility] for further evaluation and management of sepsis, altered mental status, acute hypoxemic respiratory failure, and acute kidney injury. Patient was initially presented to the transferring facility for altered mentation and found down for prolonged period of time (altered, labored breathing, foaming at mouth). He was initially on BiPAP and later intubated. His FiO2 requirements had been gone up to 90%. He had been on two pressors i.e. Levophed and vasopressin, at the time of transfer Plan Plan Respiratory: Acute hypoxemic respiratory failure 2/2 likely aspiration pneumonia History of COPD extubated on 07/10, reintubated on 07/11, extubated on 07/14 Left lung atelectasis- improved after bronchoscopy on 07/11 -chest x-ray done this morning showed bilateral basilar atelectasis, no new infiltrates -ABG-7.5/37.5/71/28.6, PF 0.89 -currently on BiPAP with FiO2 of 100 Plan -wean off FiO2 -unsure what is the cause of hypoxemia, 2D echo showed no RA/RV dilatation, no elevated PASP. Infectious disease: Sepsis present on admission Source likely aspiration pneumonia Completed seven day course of Zosyn on 07/10, and vanco dced Procalcitonin, and resp cultures on 05/12- negative Respiratory cultures from ET suction on 07/11 positive for MRSA- not on antibiotics, MRSA was thought to be secondary to colonization Cardiac: LVEF is 65-70% on echocardiogram Off pressors. AFib- currently rate controlled continue lopressor 50 mg q6 and elquis Continue amiodarone GTT, for now Neurologic: Acute metabolic encephalopathy, likely 2/2 sepsis- resolved Renal: Acute renal failure has resolved. Cr back to baseline with good uop nephrology signed off Creatinine improving after stopping Lasix Monitor BMP input output chart Morbid obesity: Can not exclude SALLY and OHS Hepatobiliary -bilirubin down to 1.7>>1.3>> 4 -AST/ALT/ALP- 52/115/319 -suspect 2/2 drug induced amiodarone Hematology Normocytic normochromic anemia -H&H 11.4/35.5 -serum iron, TIBC -low, transferrin and ferritin normal -monitor H&H, follow up on iron profile, stool for occult blood Events on 07/10 -patient was extubated, transitioned to HFNC and then to BiPAP Events on 07/11 -overnight sats dropped, chest x-ray showed left hemithorax opacification, and got re intubated -bronchoscopy in the a.m. showed copious clear secretions, left bronchus mucus plugging, improved left lung atelectasis on chest x-ray after bronchoscopy -increased dose of Lasix to 60 mg q.8h and added IV Solu-Medrol 30 mg q.6 and Mucinex nebulizations -remains on AC/CMV with peep of 12, FiO2 of 85 Events on 07/12 -on AC/PRVC with a PEEP of 12, FiO2 of 55 -mild bump in creatinine and BUN, reducing the dose of Lasix to 60 mg q.2h -LFTs uptrending, hemoglobin downtrending, labs ordered for anemia workup Events on 07/14 -patient got extubated Events on 07/16 -alternating between BiPAP and HFNC/NRBM -episode of SVT/AFib last night and was started on amio drip Lines and tubes: Zamora catheter Right upper arm PIV Code Status: full code Analgesia/sedation: none GI prophylaxis: pepcid DVT prophylaxis: apixaban Nutrition: Full liquid PT/OT/SP: yes Prognosis: Guarded Disposition: Continue care in ICU Kamla Mcclendon, ICU PGY-2 resident Date of Service: Jul 16, 2024 Billing Provider: JOSE M CURRIE MD,KAMLA, RES Jul 16, 2024 09:42
--- NOTE | 2024-07-16 12:00 | CARDIOLOGY REPORT ---
APPROVED REPORT EXAM: Limited 2D, Doppler, and color-flow Echocardiogram with saline. 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 182.8 cm/s AO Peak GR. 13.4 mmHg Tricuspid Valve TR P. Velocity 167 cm/s RAP ESTIMATE 10 mmHg TR Peak Gr. 11 mmHg RVSP 21 mmHg LEFT VENTRICLE Normal LV size and function. Moderate concentric hypertrophy. OverallLVEF is 70%. RIGHT VENTRICLE RV is normal size and function. ATRIA Left atrium is mildly dilated. Saline study was performed with 2 IV injections of 10 ccs of agitated normal saline at rest. Patient unable to valsalva. Negative saline study for right to left flow. AORTIC VALVE Trileaflet AV appears mildly sclerotic without stenosis. Mild insufficiency. AV not fully evaluated d ue to limited focused exam. MITRAL VALVE Mild mitral annular calcification without stenosis. Trace regurgitation. MV not fully evaluated due to limited focused exam. TRICUSPID VALVE Tricuspid valve is grossly normal in structure with trace regurgitation. GREAT VESSELS The aortic root is normal in size. The ascending aorta is normal in size. The IVC is normal in size a nd collapses >50% with inspiration. PERICARDIUM Normal pericardium. No effusion. Prominent anterior epicardial fat pad is present. Other Information Study Quality: Adequate Conclusion OverallLVEF is 70%. Normal LV size and function. Moderate concentric hypertrophy. RV is normal size and function. Left atrium is mildly dilated. Saline study was performed with 2 IV injections of 10 ccs of agitated normal saline at rest. Patient unable to valsalva. Negative saline study for right to left flow. Trileaflet AV appears mildly sclerotic without stenosis. Mild insufficiency. AV not fully evaluated due to limited focused exam. Mild mitral annular calcification without stenosis. Trace regurgitation. MV not fully evaluated due to limited focused exam. Tricuspid valve is grossly normal in structure with trace regurgitation. Normal pericardium. No effusion. Prominent anterior epicardial fat pad is present.
--- NOTE | 2024-07-16 18:52 | PROGRESS NOTE ---
Daily Progress Note Providers to CC ~ Antibiotic Timeout Antibiotic Ordered?: No Subjective The patient continues to require BiPAP earlier today trial of high-flow oxygen failed and the patient had to be placed back on BiPAP since the patient desaturated and the patient continues to have significant amount of secretions the patient's RN is suctioning. Objective Vital Signs Date Time Temp Pulse Resp B/P (MAP) Pulse Ox O2 Delivery O2 Flow Rate FiO2 07/16/24 17:55 98.4 60 22 94/53 (67) 96 Bi-pap/CPAP 07/16/24 15:15 90 07/16/24 09:00 10.0 Result Diagram: 07/16/24 0509 07/16/24 0509 Gen. Significant secretions however not in any distress, alert and oriented however per nursing is seeing cats Lungs clear to ascultation bilaterally, no wheezes rales or rhonchi appreciated Heart irregular rhythm no murmurs rubs or clicks noted Abdomen soft nontender bowel sounds are normoactive Lower extremities no clubbing cyanosis, 1+ pitting edema appreciated bilaterally Coagulation Studies Laboratory Tests Test 07/03/24 20:05 Prothrombin Time 11.3 SECONDS (9.0-12.0) INR International Normalized Ratio 1.1 INR Activated Partial Thromboplast Time 27 SECONDS (22-32) Coagulation Comments Problem\Assessment\Plan Problems/Diagnosis: (1) Sepsis # sepsis/septic shock- secondary to aspiration pneumonia On IV vancomycin IV Zosyn 07/08 Levophed is DC patient was blood pressure is up trending 07/10 has resolved 07/13 patient continues to spike fevers thus I have reordered blood cultures 07/14 blood cultures negative times 24 hours, sputum cultures Gram-positive cocci 07/15 sputum positive for MRSA- I spoke with Dr. 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 # hypertension- Blood pressure currently under acceptable control # acute respiratory failure secondary to aspiration pneumonia Patient was son found the patient not breathing and had aspirated the patient has obstructive sleep apnea and is waiting for a CPAP 07/05 status post bronchoscopy with a large mucus plug causing left upper lobe atelectasis- remains on a ventilator at 60% FiO2 with a PEEP of 10 07/06 improving- on 50% FiO2 with a PEEP of 7.0 07/07 slightly improved on 45% FiO2 however the patient failed spontaneous breathing trial 07/08 the patient has failed spontaneous breathing trial today and now is on 70% FiO2 remains intubated on ventilator 07/09 oxygen has been titrated down to of 60% FiO2 07/10 extubated today on high-flow oxygen and currently on CPAP 07/11 reintubated last evening for completely whiteout of the left lung- status post bronchoscopy with the mucus plugging of the left mainstem bronchus by Dr. Mclean metal machine operator- oxygen demand is improved from 100% O2 now on 70% O2 07/12 on 60% on oxygen remains intubated on a ventilator 07/13 the patient remains on a ventilator currently on 40% oxygen with a PEEP of 10 07/14 patient was on 19 L of high-flow oxygen via [place] 07/15 the patient now is on 30 L of high-flow oxygen via [place] 07/16 the patient currently is BiPAP dependent trials to titrate down to a high- flow oxygen has been unsuccessful # AFib RVR On amiodarone and digoxin and esmolol 07/05 remains on amiodarone drip 07/07 amiodarone was discontinued due the patient was slightly bradycardic and l iver function test markedly up trended, esmolol was discontinued as well patient was on p.o. metoprolol 07/08 heart rate is controlled with metoprolol 07/10 heart rate remains controlled 07/14 on apixaban and metoprolol tartrate 50 mg q.6 hours 07/16 on apixaban and metoprolol- the patient was restarted on an amiodarone drip last evening I did inform Dr. Mclean to keep a very close watch on the patient was liver function as I am concerned this is going to cause issues. # transaminitis with a significant up trend- 07/07 Amiodarone drip was discontinued today - Ultrasound of the abdomen was concerning for possible bile leak gallbladder was absent 07/08 improving since amiodarone was discontinued 07/09 Continues to improve 07/12 liver enzymes continued to up trend 07/13 significantly improved today 07/14 continues to improve daily 07/16 liver function worsened today- we will need a keep a close watch on the patient's liver function and if continues to worsen amiodarone we will need to be discontinued. # MICKEY Renal function is improving Chemical Dependency Therapist Dr. Mckeon is on board and following the patient On a D5W drip 07/05 continues to improve- Dr. Mckeon assessed that the underlying cause is likely ATN 07/06 continues to improve 07/07 continues to improve- nephrology has signed off 07/08 has resolved continue monitor daily CMP 07/12 renal function has worsened the metal machine operator team is back down on the patient's IV Lasix 07/13 renal function has stabilized today to continue to monitor # acute HFpEF- 07/09 ProBNP is 1100 received IV Lasix in his on b.i.d. IV Lasix 07/11 proBNP is 1728 IV Lasix is increased to 60 mg t.i.d. 07/12 IV Lasix doses decreased to 60 mg b.i.d. 07/13 renal function remained stable # obstructive sleep apnea Per the patient's son- awaiting evaluation for a CPAP Date of Service: Jul 16, 2024 Billing Provider: JARET LARA DO Common Visit Codes: [id number] INP/OBS CARE(HIGH) JARET LARA DO Jul 16, 2024 18:52
[2024-07-17] VITALS (42 sets, daily range): BP systolic 83–128; BP diastolic 46–69; PULSE 58–127; RESP 8–27; O2SAT 93–100
[2024-07-17 06:37] LABS: BASOPHILS % (AUTO) 0.3 % (0-1); EOSINOPHILS # (AUTO) 0.2 X10'3 (0-0.9); HEMATOCRIT 34.9 % (42.0-52.0); HEMOGLOBIN 11.1 g/dl (14.0-17.9); LYMPHOCYTES # (AUTO) 1.3 X10'3 (1.1-4.8); LYMPHOCYTES % (AUTO) 15.1 % (21-51); MEAN CORPUSCULAR HEMOGLOBIN 28.8 PG (27.0-31.0); MEAN CORPUSCULAR HGB CONC 31.9 g/dL (33.0-36.5); MEAN CORPUSCULAR VOLUME 90.3 FL (78-98); MEAN PLATELET VOLUME 10.2 FL (7.4-10.4); MONOCYTES # (AUTO) 0.5 X10'3 (0-0.9); MONOCYTES % (AUTO) 5.7 % (2-12); NEUTROPHILS # (AUTO) 6.7 X10'3 (1.8-7.7); NEUTROPHILS % (AUTO) 76.9 % (42-75); PLATELET COUNT 138 X10'3 (140-440); RED BLOOD COUNT 3.86 X10'6 (4.70-6.10); RED CELL DISTRIBUTION WIDTH 17.1 % (11.5-14.5); WHITE BLOOD COUNT 8.7 X10'3 (4.5-11.0)
[2024-07-17 06:49] LABS: ALANINE AMINOTRANSFERASE 102 U/L (12-78); ALBUMIN 2.4 G/DL (3.4-5.0); ALBUMIN/GLOBULIN RATIO 0.7 (1.1-1.5); ALKALINE PHOSPHATASE 305 IU/L (46-116); ANION GAP 9 (8-16); ASPARTATE AMINO TRANSFERASE 29 U/L (10-37); BILIRUBIN,TOTAL 1.5 MG/DL (0.1-1.0); BLOOD UREA NITROGEN 56 MG/DL (7-18); BUN/CREATININE RATIO 45.9 (10.0-20.0); CALCIUM 8.8 MG/DL (8.5-10.1); CHLORIDE 101 MMOL/L (99-107); CREATININE 1.22 MG/DL (0.60-1.10); GLUCOSE 87 MG/DL (70-104); MAGNESIUM 2.5 MG/DL (1.5-2.4); PHOSPHORUS 3.8 MG/DL (2.3-4.5); POTASSIUM 3.6 MMOL/L (3.5-5.1); SODIUM 141 MMOL/L (135-145); TOTAL CARBON DIOXIDE 31.3 MMOL/L (24-32); eCRCL 71 ML/MIN; eGFR 62 ML/MIN
[2024-07-17 07:26] LABS: ABG BASE EXCESS 6.5 mmol/L (-2.0-3.0); ABG OXYGEN SATURATION 97.8 % (94.0-98.0); ABG PCO2 (T) 38.9 mmHg (35.0-48.0); ABG PH (T) 7.505 (7.350-7.450); ABG PO2 (T) 99.1 mmHg (83.0-108.0); ALLEN'S TEST POSITIVE; FCOHb 0.3 % (0.5-1.5); FHHb 2.2 % (0.0-5.0); FMetHb 0.3 % (0.0-1.5); FO2Hb 97.2 % (94.0-98.0); MODE MASK - BIPAP; TOTAL HEMOGLOBIN 11.5 G/dl (13.5-17.5)
--- NOTE | 2024-07-17 08:15 | RADIOLOGY REPORT ---
EXAM: DI CHEST,SINGLE VIEW Indication: infiltrate Technique: Single frontal view of the chest was obtained Comparison: DI CHEST,SINGLE VIEW on DOS: 07/16/24, DI CHEST,SINGLE VIEW on DOS: 07/15/24, DI CHEST,SING LE VIEW on DOS: 07/14/24, DI CHEST,SINGLE VIEW on DOS: 07/13/24, DI CHEST,SINGLE VIEW on DOS: 07/12/24 FINDINGS: Lines and Tubes: None Lungs: Left basilar opacity. Pleura: Small left pleural effusion. No pneumothorax. Cardiomediastinal contours: Cardiomegaly. Bones: No acute osseous abnormality. IMPRESSION: Cardiomegaly with small left pleural effusion and left basilar opacity.
--- NOTE | 2024-07-17 09:41 | PROGRESS NOTE- Residence ---
Progress Note - Resident Providers to CC Resident Creating Document: KAMLA MCCLENDON RES CC: JOSE M CURRIE MD ~ Central Line/PICC still needed: N\A Antibiotic Timeout Antibiotic Ordered?: No Subjective Patient is seen this morning. On BiPAP, awake and alert. Is having fluctuations in his heart rate and blood pressure. Received metoprolol this morning and after that heart rate came down. Objective Vital Signs Date Time Temp Pulse Resp B/P (MAP) Pulse Ox O2 Delivery O2 Flow Rate FiO2 07/17/24 08:00 98.6 119 25 88/56 (67) 97 Bi-pap/CPAP 70 07/16/24 23:00 15.0 Result Diagram: 07/17/2461507/17/24615 General: Adult male, awake and alert, on BiPAP Head: Normocephalic with an atraumatic Eyes: Pupils- 3mm, reacting to light, conjunctiva- anicteric Nose and throat: No polyps, septum- normal, no mucosal ulcers Neck: Supple, no lymphadenopathy, no carotid bruit Respiratory: No use of accessory muscles of respiration, bilateral equal air entry present Cardiac: S1-S2 heard, rythm regular, no gallop/murmur Abdomen: non distended, no tenderness, no organomegaly, bowel sounds- heard Extremities: no clubbing, bilateral 1+ pitting pedal edema, no deformities, peripheral pulses- 2+ Skin: warm and dry, no rash, no purpura Neuro: Moving all extremities Coagulation Studies Laboratory Tests Test 07/03/24 20:05 Prothrombin Time 11.3 SECONDS (9.0-12.0) INR International Normalized Ratio 1.1 INR Activated Partial Thromboplast Time 27 SECONDS (22-32) Coagulation Comments Assessment Assessment 54-year-old male who is ex-smoker (40 years smoking history) and morbidly obese, with a history of COPD was transferred from [facility] for further evaluation and management of sepsis, altered mental status, acute hypoxemic respiratory failure, and acute kidney injury. Patient was initially presented to the transferring facility for altered mentation and found down for prolonged period of time (altered, labored breathing, foaming at mouth). He was initially on BiPAP and later intubated. His FiO2 requirements had been gone up to 90%. He had been on two pressors i.e. Levophed and vasopressin, at the time of transfer Plan Plan Respiratory: Acute hypoxemic respiratory failure 2/2 likely aspiration pneumonia History of COPD extubated on 07/10, reintubated on 07/11, extubated on 07/14 Left lung atelectasis- improved after bronchoscopy on 07/11 -chest x-ray done this morning showed bilateral basilar atelectasis, no new infiltrates -currently on BiPAP with FiO2 of 70 Plan -wean off FiO2 -unsure what is the cause of hypoxemia, 2D echo showed no RA/RV dilatation, no elevated PASP. -Plan for ct chest today -?trial of AVAPS today Infectious disease: Sepsis present on admission Source likely aspiration pneumonia Completed seven day course of Zosyn on 07/10, and vanco dced Procalcitonin, and resp cultures on 05/12- negative Respiratory cultures from ET suction on 07/11 positive for MRSA- not on antibiotics, MRSA was thought to be secondary to colonization Cardiac: LVEF is 65-70% on echocardiogram Off pressors. AFib- currently rate controlled continue lopressor 50 mg q6 and elquis Continue amiodarone GTT, for now 1l LR BOLUS for hypotension Neurologic: Acute metabolic encephalopathy, likely 2/2 sepsis- resolved Renal: Acute renal failure has resolved. Cr back to baseline with good uop nephrology signed off Creatinine improving after stopping Lasix Monitor BMP input output chart Morbid obesity: Can not exclude SALLY and OHS Hepatobiliary -bilirubin down to 1.5>> 1.7>>1.3>> 4 -AST/ALT/ALP- 29/102/305 -suspect 2/2 drug induced amiodarone Hematology Normocytic normochromic anemia -H&H 11.4/35.5 -serum iron, TIBC -low, transferrin and ferritin normal -monitor H&H, follow up on iron profile, stool for occult blood Events on 07/10 -patient was extubated, transitioned to HFNC and then to BiPAP Events on 07/11 -overnight sats dropped, chest x-ray showed left hemithorax opacification, and got re intubated -bronchoscopy in the a.m. showed copious clear secretions, left bronchus mucus plugging, improved left lung atelectasis on chest x-ray after bronchoscopy -increased dose of Lasix to 60 mg q.8h and added IV Solu-Medrol 30 mg q.6 and Mucinex nebulizations -remains on AC/CMV with peep of 12, FiO2 of 85 Events on 07/12 -on AC/PRVC with a PEEP of 12, FiO2 of 55 -mild bump in creatinine and BUN, reducing the dose of Lasix to 60 mg q.2h -LFTs uptrending, hemoglobin downtrending, labs ordered for anemia workup Events on 07/14 -patient got extubated Events on 07/16 -alternating between BiPAP and HFNC/NRBM -episode of SVT/AFib last night and was started on amio drip 07/17 -CT chest today -FiO2 down to 70% on BiPAP -1 L LR bolus for hypotension Lines and tubes: Zamora catheter Right upper arm PIV Code Status: full code Analgesia/sedation: none GI prophylaxis: pepcid DVT prophylaxis: apixaban Nutrition: Full liquid PT/OT/SP: yes Prognosis: Guarded Disposition: Continue care in ICU Kamla Mcclendon, ICU PGY-2 resident Date of Service: Jul 17, 2024 Billing Provider: JOSE M CURRIE MD,KAMLA, RES Jul 17, 2024 09:41
[2024-07-17] MEDS ORDERED: magnesium hydroxide 30ml (MOM) UD suspension PO PRN (10:25)
[2024-07-17] MEDS: ringers solution, lacted 1,000 ML IV ONE (13:00)
[2024-07-17] MEDS: docusate sod 100mg capsule PO SCH (13:07)
[2024-07-17] MEDS: magnesium hydroxide 30ml (MOM) UD suspension PO ONE (13:07)
--- NOTE | 2024-07-17 15:18 | PROGRESS NOTE ---
Daily Progress Note Providers to CC ~ Antibiotic Timeout Antibiotic Ordered?: No Subjective Patient is morbidly obese older than stated age, and son present. At bedside. Patient has started eating currently requiring 13 L of high-flow oxygen, borderline blood pressure Objective Vital Signs Date Time Temp Pulse Resp B/P (MAP) Pulse Ox O2 Delivery O2 Flow Rate FiO2 07/17/24 14:45 70 22 99 13.0 07/17/24 13:00 99.5 99/64 (76) High Flow Nasal Cannula 60 Result Diagram: 07/17/24 0616 07/17/24 0616 General-patient not in any acute distress, alert awake , morbidly obese, ill- appearing HEENT-atraumatic normocephalic, neck supple without elevated JVD, no thyromegaly or carotid bruit. No lymphadenopathy bilaterally. Eyes-no icterus or pallor seen in eyes Chest-coarse breath sounds present to auscultation bilaterally, breathing nonlabored no tachypnea, mild wheezing,. Heart-S1-S2 normal, regular heart rate no murmur Abdomen bowel sounds positive on auscultation, soft nondistended nontender no guarding, no rigidity Neurology-grossly intact, nonfocal alert awake Extremity- no pedal edema able to move all 4 extremities with mild support Psychiatry - patient is not confused or agitated cooperated during physical examination Coagulation Studies Laboratory Tests Test 07/03/24 20:05 Prothrombin Time 11.3 SECONDS (9.0-12.0) INR International Normalized Ratio 1.1 INR Activated Partial Thromboplast Time 27 SECONDS (22-32) Coagulation Comments Problem\Assessment\Plan Problems/Diagnosis: (1) Sepsis # sepsis/septic shock- secondary to aspiration pneumonia On IV vancomycin IV Zosyn 07/08 Levophed is DC patient was blood pressure is up trending 07/10 has resolved 07/13 patient continues to spike fevers thus I have reordered blood cultures 07/14 blood cultures negative times 24 hours, sputum cultures Gram-positive cocci 07/15 sputum positive for MRSA- I spoke with Dr. 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 07/16 white blood cell count up yesterday 07/17- WBC 8.7 # hypertension- borderline blood pressure # acute respiratory failure secondary to aspiration pneumonia Patient was son found the patient not breathing and had aspirated the patient has obstructive sleep apnea and is waiting for a CPAP 07/05 status post bronchoscopy with a large mucus plug causing left upper lobe atelectasis- remains on a ventilator at 60% FiO2 with a PEEP of 10 07/06 improving- on 50% FiO2 with a PEEP of 7.0 07/07 slightly improved on 45% FiO2 however the patient failed spontaneous breathing trial 07/08 the patient has failed spontaneous breathing trial today and now is on 70% FiO2 remains intubated on ventilator 07/09 oxygen has been titrated down to of 60% FiO2 07/10 extubated today on high-flow oxygen and currently on CPAP 07/11 reintubated last evening for completely whiteout of the left lung- status post bronchoscopy with the mucus plugging of the left mainstem bronchus by Dr. Mclean line appliance assembler- oxygen demand is improved from 100% O2 now on 70% O2 07/12 on 60% on oxygen remains intubated on a ventilator 07/13 the patient remains on a ventilator currently on 40% oxygen with a PEEP of 10 07/14 patient was on 19 L of high-flow oxygen via [place] 07/15 the patient now is on 30 L of high-flow oxygen via [place] 07/16 the patient currently is BiPAP dependent trials to titrate down to a high- flow oxygen has been unsuccessful 07/17- requiring 13 L of high-flow oxygen, # AFib RVR On amiodarone and digoxin and esmolol 07/05 remains on amiodarone drip 07/07 amiodarone was discontinued due the patient was slightly bradycardic and l iver function test markedly up trended, esmolol was discontinued as well patient was on p.o. metoprolol 07/08 heart rate is controlled with metoprolol 07/10 heart rate remains controlled 07/14 on apixaban and metoprolol tartrate 50 mg q.6 hours 07/16 on apixaban and metoprolol- the patient was restarted on an amiodarone drip last evening I did inform Dr. Mclean to keep a very close watch on the patient was liver function as I am concerned this is going to cause issues. # transaminitis with a significant up trend- 07/07 Amiodarone drip was discontinued today - Ultrasound of the abdomen was concerning for possible bile leak gallbladder was absent 07/08 improving since amiodarone was discontinued 07/09 Continues to improve 07/12 liver enzymes continued to up trend 07/13 significantly improved today 07/14 continues to improve daily 07/16 liver function worsened today- we will need a keep a close watch on the patient's liver function and if continues to worsen amiodarone we will need to be discontinued. 07/17-monitor liver function test # MICKEY Renal function is improving Fire Tower Keeper Dr. Mckeon is on board and following the patient On a D5W drip 07/05 continues to improve- Dr. Mckeon assessed that the underlying cause is likely ATN 07/06 continues to improve 07/07 continues to improve- nephrology has signed off 07/08 has resolved continue monitor daily CMP 07/12 renal function has worsened the line appliance assembler team is back down on the patient's IV Lasix 07/13 renal function has stabilized today to continue to monitor # acute HFpEF- 07/09 ProBNP is 1100 received IV Lasix in his on b.i.d. IV Lasix 07/11 proBNP is 1728 IV Lasix is increased to 60 mg t.i.d. 07/12 IV Lasix doses decreased to 60 mg b.i.d. 07/13 renal function remained stable # obstructive sleep apnea Per the patient's son- awaiting evaluation for a CPAP Patient's current condition is guarded I will continue to follow patient along with the line appliance assembler team Date of Service: Jul 17, 2024 Billing Provider: MITUL BRITT MD Common Visit Codes: [id number] INP/OBS CARE(MOD) MITUL BRITT MD Jul 17, 2024 15:18
--- NOTE | 2024-07-17 15:39 | RADIOLOGY REPORT ---
CT Chest without intravenous contrast INDICATION: HYPOXEMIA TECHNIQUE: Multidetector spiral CT of the chest was performed from the lung apices to the upper abdom en. Axial, coronal and sagittal multiplanar reformats were performed. Radiation Dose : 1. Chest: CTDI volume is 18.7 mGy. Dose-length product is 652.6 mGy*cm The dose indicators for CT are the volume Computed Tomography (CT) Dose Index (CTDIvol) and the Dose Length Product (DLP), and are measured in units of mGy and mGy-cm, respectively. These indicators are not patient dose, but values generated from the CT scanner acquisition factors. The report includes radiation exposure data for exposures received during this examination. Comparison: 07/05/2024 Findings: Lower neck: Normal thyroid. Lungs: Patchy opacities in the left upper lobe. Bibasilar subsegmental atelectasis or scarring. Subse gmental atelectasis in the lingula. Heart/Vascular Structures: Cardiomegaly. Coronary artery calcifications. Vascular calcifications of t he aorta. Lymph Nodes: No adenopathy Pleura: Small left pleural effusion. Musculoskeletal: No acute osseous abnormality. Soft tissues: Normal. Upper abdomen: Limited portions of the upper abdomen are unremarkable. IMPRESSION: Patchy opacities in the left upper lobe. Bibasilar subsegmental atelectasis or scarring. Subsegmental atelectasis in the lingula. Radiation optimization: All CT scans at this facility use at least one of these dose optimization ann marie hniques: automated exposure control mA and/or kV adjustment per patient size (includes targeted exam s where dose is matched to clinical indication) or iterative reconstruction.
[2024-07-18] VITALS (37 sets, daily range): BP systolic 79–136; BP diastolic 37–65; PULSE 54–72; RESP 8–24; O2SAT 83–99
[2024-07-18 03:39] LABS: BASOPHILS % (AUTO) 0.4 % (0-1); EOSINOPHILS # (AUTO) 0.4 X10'3 (0-0.9); EOSINOPHILS % (AUTO) 5.2 % (0-6); HEMATOCRIT 30.2 % (42.0-52.0); HEMOGLOBIN 10.1 g/dl (14.0-17.9); LYMPHOCYTES # (AUTO) 1.3 X10'3 (1.1-4.8); LYMPHOCYTES % (AUTO) 18.1 % (21-51); MEAN CORPUSCULAR HEMOGLOBIN 29.2 PG (27.0-31.0); MEAN CORPUSCULAR HGB CONC 33.4 g/dL (33.0-36.5); MEAN CORPUSCULAR VOLUME 87.6 FL (78-98); MEAN PLATELET VOLUME 9.9 FL (7.4-10.4); MONOCYTES # (AUTO) 0.4 X10'3 (0-0.9); MONOCYTES % (AUTO) 6.4 % (2-12); NEUTROPHILS # (AUTO) 4.9 X10'3 (1.8-7.7); NEUTROPHILS % (AUTO) 69.9 % (42-75); PLATELET COUNT 160 X10'3 (140-440); RED BLOOD COUNT 3.44 X10'6 (4.70-6.10); RED CELL DISTRIBUTION WIDTH 17.2 % (11.5-14.5)
[2024-07-18 03:52] LABS: ALANINE AMINOTRANSFERASE 135 U/L (12-78); ALBUMIN 2.2 G/DL (3.4-5.0); ALBUMIN/GLOBULIN RATIO 0.6 (1.1-1.5); ALKALINE PHOSPHATASE 507 IU/L (46-116); ANION GAP 2 (8-16); ASPARTATE AMINO TRANSFERASE 47 U/L (10-37); BILIRUBIN,TOTAL 1.9 MG/DL (0.1-1.0); BLOOD UREA NITROGEN 45 MG/DL (7-18); BUN/CREATININE RATIO 40.9 (10.0-20.0); CALCIUM 8.4 MG/DL (8.5-10.1); CHLORIDE 101 MMOL/L (99-107); GLUCOSE 88 MG/DL (70-104); MAGNESIUM 2.4 MG/DL (1.5-2.4); PHOSPHORUS 2.7 MG/DL (2.3-4.5); POTASSIUM 3.6 MMOL/L (3.5-5.1); SODIUM 136 MMOL/L (135-145); TOTAL CARBON DIOXIDE 32.6 MMOL/L (24-32); TOTAL PROTEIN 5.6 G/DL (6.4-8.2); eCRCL 79 ML/MIN; eGFR 70 ML/MIN
[2024-07-18] MEDS: acetaZOLAMIDE IV 500mg inj IV SCH (08:04)
[2024-07-18] MEDS ORDERED: amiodarone/D5 360MG/200ML BAG 200 ML IV SCH (10:35)
[2024-07-18] MEDS: amiodarone/D5 360MG/200ML BAG 200 ML IV SCH (10:35)
--- NOTE | 2024-07-18 10:45 | PROGRESS NOTE- Residence ---
Progress Note - Resident Providers to CC Resident Creating Document: KAMLA MCCLENDON RES CC: JOSE M CURRIE MD ~ Central Line/PICC still needed: Yes Central Line/PICC Necessity: Prolonged IV access req Zamora-Non Protocol Zamora Indications Met/Not Met: F/C Indications Met Antibiotic Timeout Antibiotic Ordered?: No Subjective No acute overnight events noted. From this morning he is on HFNC at 12 L/min. RN reported that his saturations are in the range of 88 when he when he is coughing up his saturations are going up to 92. Patient is awake and alert. He stated he was not diagnosed with any heart condition before. His said he is using inhalers at home. 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 He stated he had previous history of atrial fibrillation but he was not on blood thinners. At present, he denies any chest pain or cough or shortness of breath. Objective Vital Signs Date Time Temp Pulse Resp B/P (MAP) Pulse Ox O2 Delivery O2 Flow Rate FiO2 07/18/24 09:55 59 22 96 35.0 65 07/18/24 08:00 98.4 111/55 (73) High Flow Nasal Cannula Result Diagram: 07/18/24 0331 07/18/24 0331 General: Adult male, awake and alert, on HFNC @ 12/min Head: Normocephalic with an atraumatic Eyes: Pupils- 3mm, reacting to light, conjunctiva- anicteric Nose and throat: No polyps, septum- normal, no mucosal ulcers Neck: Supple, no lymphadenopathy, no carotid bruit Respiratory: No use of accessory muscles of respiration, bilateral equal air entry present Cardiac: S1-S2 heard, rythm regular, no gallop/murmur Abdomen: non distended, no tenderness, no organomegaly, bowel sounds- heard Extremities: no clubbing, pedal edema came down, no deformities, peripheral pulses- 2+ Skin: warm and dry, no rash, no purpura Neuro: Moving all extremities Coagulation Studies Laboratory Tests Test 07/03/24 20:05 Prothrombin Time 11.3 SECONDS (9.0-12.0) INR International Normalized Ratio 1.1 INR Activated Partial Thromboplast Time 27 SECONDS (22-32) Coagulation Comments Assessment Assessment 54-year-old male who is ex-smoker (40 years smoking history) and morbidly obese, with a history of COPD [facility] further evaluation and management of sepsis, altered mental status, acute hypoxemic respiratory failure, and acute kidney injury. Patient was initially presented to the transferring facility for altered mentation and found down for prolonged period of time (altered, labored breathing, foaming at mouth). He was initially on BiPAP and later intubated. His FiO2 requirements had been gone up to 90%. He had been on two pressors i.e. Levophed and vasopressin, at the time of transfer Plan Plan Respiratory: Acute hypoxemic respiratory failure 2/2 likely aspiration pneumonia History of COPD extubated on 07/10, reintubated on 07/11, extubated on 07/14 Left lung atelectasis- improved after bronchoscopy on 07/11 -CT chest done yesterday- bibasiliar atelactsis, patchy opacities left upper lobe -currently on HFNC at 12 L/min Plan -patient is doing better -continue HFNC, wean off oxygen -pulmonary toilet Infectious disease: Sepsis present on admission Source likely aspiration pneumonia Completed seven day course of Zosyn on 07/10, and vanco dced Procalcitonin, and resp cultures on 05/12- negative Respiratory cultures from ET suction on 07/11 positive for MRSA- not on antibiotics, MRSA was thought to be secondary to colonization Cardiac: LVEF is 65-70% on echocardiogram Off pressors. AFib- currently rate controlled Continue amio GTT for now Reduced dose of metoprolol to 50 mg q.12 Neurologic: Acute metabolic encephalopathy, likely 2/2 sepsis- resolved Renal: Acute renal failure has resolved. Cr back to baseline with good uop nephrology signed off Creatinine improving after stopping Lasix Monitor BMP input output chart Morbid obesity: Can not exclude SALLY and OHS Hepatobiliary -bilirubin down to 1.9>> 1.5>> 1.7>>1.3>> 4 -AST/ALT/ALP-47/135/507, liver enzymes trending up -suspect 2/2 drug induced amiodarone Hematology Normocytic normochromic anemia -H&H 10.1/30.2 -serum iron, TIBC -low, transferrin and ferritin normal Metabolic alkalosis -likely 2/2 contraction alkalosis due to lasix -continue iv diamox 500 mg bid Events on 07/10 -patient was extubated, transitioned to HFNC and then to BiPAP Events on 07/11 -overnight sats dropped, chest x-ray showed left hemithorax opacification, and got re intubated -bronchoscopy in the a.m. showed copious clear secretions, left bronchus mucus plugging, improved left lung atelectasis on chest x-ray after bronchoscopy -increased dose of Lasix to 60 mg q.8h and added IV Solu-Medrol 30 mg q.6 and Mucinex nebulizations -remains on AC/CMV with peep of 12, FiO2 of 85 Events on 07/12 -on AC/PRVC with a PEEP of 12, FiO2 of 55 -mild bump in creatinine and BUN, reducing the dose of Lasix to 60 mg q.2h -LFTs uptrending, hemoglobin downtrending, labs ordered for anemia workup Events on 07/14 -patient got extubated Events on 07/16 -alternating between BiPAP and HFNC/NRBM -episode of SVT/AFib last night and was started on amio drip 07/17 -CT chest today -FiO2 down to 70% on BiPAP -1 L LR bolus for hypotension 07/18 -CT chest showed- bibasilar atelectasis left upper lobe patchy opacity -on HFNC at 12 L/min -reduced metoprolol dose of 50 mg q.12 -pulmonary toilet and physical therapy -added IV acetazolamide for metabolic alkalosis Lines and tubes: Zamora catheter Right PICC Code Status: full code Analgesia/sedation: none GI prophylaxis: pepcid DVT prophylaxis: apixaban Nutrition: minced moist PT/OT/SP: yes Prognosis: Guarded Disposition: Continue care in ICU, likely transferred to [facility] tomorrow Kamla Mcclendon, ICU PGY-2 resident Date of Service: Jul 18, 2024 Billing Provider: JOSE M CURRIE MD,KAMLA, RES Jul 18, 2024 10:45
--- NOTE | 2024-07-18 18:40 | PROGRESS NOTE ---
Daily Progress Note Providers to CC ~ Antibiotic Timeout Antibiotic Ordered?: No Subjective Patient is morbidly obese older than stated age, and son present. At bedside. Patient has started eating currently, requiring high-flow oxygen, Objective Vital Signs Date Time Temp Pulse Resp B/P (MAP) Pulse Ox O2 Delivery O2 Flow Rate FiO2 07/18/24 18:00 59 15 98/56 (70) 99 High Flow Nasal Cannula 35.0 40 07/18/24 16:00 100.0 Result Diagram: 07/18/24 0331 07/18/24 0331 General-patient not in any acute distress, alert awake , morbidly obese, ill- appearing HEENT-atraumatic normocephalic, neck supple without elevated JVD, no thyromegaly or carotid bruit. No lymphadenopathy bilaterally. Eyes-no icterus or pallor seen in eyes Chest-coarse breath sounds present to auscultation bilaterally, breathing nonlabored no tachypnea, mild wheezing,. Heart-S1-S2 normal, regular heart rate no murmur Abdomen bowel sounds positive on auscultation, soft nondistended nontender no guarding, no rigidity Neurology-grossly intact, nonfocal alert awake Extremity- no pedal edema able to move all 4 extremities with mild support Psychiatry - patient is not confused or agitated cooperated during physical examination Coagulation Studies Laboratory Tests Test 07/03/24 20:05 Prothrombin Time 11.3 SECONDS (9.0-12.0) INR International Normalized Ratio 1.1 INR Activated Partial Thromboplast Time 27 SECONDS (22-32) Coagulation Comments Problem\Assessment\Plan Problems/Diagnosis: (1) Sepsis # sepsis/septic shock- secondary to aspiration pneumonia On IV vancomycin IV Zosyn 07/08 Levophed is DC patient was blood pressure is up trending 07/10 has resolved 07/13 patient continues to spike fevers thus I have reordered blood cultures 07/14 blood cultures negative times 24 hours, sputum cultures Gram-positive cocci 07/15 sputum positive for MRSA- I spoke with Dr. 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 07/16 white blood cell count up yesterday 07/17- WBC 8.7 # hypertension- borderline blood pressure # acute respiratory failure secondary to aspiration pneumonia Patient was son found the patient not breathing and had aspirated the patient has obstructive sleep apnea and is waiting for a CPAP 07/05 status post bronchoscopy with a large mucus plug causing left upper lobe atelectasis- remains on a ventilator at 60% FiO2 with a PEEP of 10 07/06 improving- on 50% FiO2 with a PEEP of 7.0 07/07 slightly improved on 45% FiO2 however the patient failed spontaneous breathing trial 07/08 the patient has failed spontaneous breathing trial today and now is on 70% FiO2 remains intubated on ventilator 07/09 oxygen has been titrated down to of 60% FiO2 07/10 extubated today on high-flow oxygen and currently on CPAP 07/11 reintubated last evening for completely whiteout of the left lung- status post bronchoscopy with the mucus plugging of the left mainstem bronchus by Dr. Mclean patient registration clerk- oxygen demand is improved from 100% O2 now on 70% O2 07/12 on 60% on oxygen remains intubated on a ventilator 07/13 the patient remains on a ventilator currently on 40% oxygen with a PEEP of 10 07/14 patient was on 19 L of high-flow oxygen via [place] 07/15 the patient now is on 30 L of high-flow oxygen via [place] 07/16 the patient currently is BiPAP dependent trials to titrate down to a high- flow oxygen has been unsuccessful 07/17- requiring 13 L of high-flow oxygen, # AFib RVR On amiodarone and digoxin and esmolol 07/05 remains on amiodarone drip 07/07 amiodarone was discontinued due the patient was slightly bradycardic and l iver function test markedly up trended, esmolol was discontinued as well patient was on p.o. metoprolol 07/08 heart rate is controlled with metoprolol 07/10 heart rate remains controlled 07/14 on apixaban and metoprolol tartrate 50 mg q.6 hours 07/16 on apixaban and metoprolol- the patient was restarted on an amiodarone drip last evening I did inform Dr. Mclean to keep a very close watch on the patient was liver function as I am concerned this is going to cause issues. # transaminitis with a significant up trend- 07/07 Amiodarone drip was discontinued today - Ultrasound of the abdomen was concerning for possible bile leak gallbladder was absent 07/08 improving since amiodarone was discontinued 07/09 Continues to improve 07/12 liver enzymes continued to up trend 07/13 significantly improved today 07/14 continues to improve daily 07/16 liver function worsened today- we will need a keep a close watch on the patient's liver function and if continues to worsen amiodarone we will need to be discontinued. 07/17-monitor liver function test # MICKEY Renal function is improving Data Entry Email Processor Dr. Mckeon is on board and following the patient On a D5W drip 07/05 continues to improve- Dr. Mckeon assessed that the underlying cause is likely ATN 07/06 continues to improve 07/07 continues to improve- nephrology has signed off 07/08 has resolved continue monitor daily CMP 07/12 renal function has worsened the patient registration clerk team is back down on the patient's IV Lasix 07/13 renal function has stabilized today to continue to monitor # acute HFpEF- 07/09 ProBNP is 1100 received IV Lasix in his on b.i.d. IV Lasix 07/11 proBNP is 1728 IV Lasix is increased to 60 mg t.i.d. 07/12 IV Lasix doses decreased to 60 mg b.i.d. 07/13 renal function remained stable # obstructive sleep apnea Per the patient's son- awaiting evaluation for a CPAP Patient's current condition is guarded I will continue to follow patient along with the patient registration clerk team Date of Service: Jul 18, 2024 Billing Provider: MITUL BRITT MD Common Visit Codes: [id number] INP/OBS CARE(MOD) MITUL BRITT MD Jul 18, 2024 18:40
[2024-07-18] MEDS: metoprolol tartrate 25mg tablet PO SCH (19:18)
[2024-07-18] MEDS ORDERED: amiodarone 200mg tablet PO SCH (20:00)
[2024-07-19] VITALS (42 sets, daily range): BP systolic 81–142; BP diastolic 47–80; PULSE 50–73; RESP 8–26; O2SAT 90–100
[2024-07-19 08:37] LABS: ALANINE AMINOTRANSFERASE 101 U/L (12-78); ALBUMIN 2.6 G/DL (3.4-5.0); ALBUMIN/GLOBULIN RATIO 0.8 (1.1-1.5); ALKALINE PHOSPHATASE 527 IU/L (46-116); ANION GAP 7 (8-16); ASPARTATE AMINO TRANSFERASE 22 U/L (10-37); BILIRUBIN,TOTAL 1.5 MG/DL (0.1-1.0); BLOOD UREA NITROGEN 38 MG/DL (7-18); BUN/CREATININE RATIO 31.4 (10.0-20.0); CALCIUM 8.2 MG/DL (8.5-10.1); CHLORIDE 97 MMOL/L (99-107); CREATININE 1.21 MG/DL (0.60-1.10); GLUCOSE 83 MG/DL (70-104); MAGNESIUM 2.3 MG/DL (1.5-2.4); POTASSIUM 3.8 MMOL/L (3.5-5.1); PREALBUMIN 24.2 MG/DL (19-36); SODIUM 134 MMOL/L (135-145); TOTAL CARBON DIOXIDE 30.3 MMOL/L (24-32); eCRCL 72 ML/MIN; eGFR 62 ML/MIN
[2024-07-19 08:57] LABS: BASOPHILS % (AUTO) 0.3 % (0-1); EOSINOPHILS # (AUTO) 0.5 X10'3 (0-0.9); EOSINOPHILS % (AUTO) 6.9 % (0-6); HEMATOCRIT 31.1 % (42.0-52.0); HEMOGLOBIN 10.4 g/dl (14.0-17.9); LYMPHOCYTES # (AUTO) 1.7 X10'3 (1.1-4.8); LYMPHOCYTES % (AUTO) 26.2 % (21-51); MEAN CORPUSCULAR HEMOGLOBIN 29.6 PG (27.0-31.0); MEAN CORPUSCULAR HGB CONC 33.6 g/dL (33.0-36.5); MEAN PLATELET VOLUME 10.2 FL (7.4-10.4); MONOCYTES # (AUTO) 0.6 X10'3 (0-0.9); MONOCYTES % (AUTO) 9.9 % (2-12); NEUTROPHILS # (AUTO) 3.7 X10'3 (1.8-7.7); NEUTROPHILS % (AUTO) 56.7 % (42-75); PLATELET COUNT 197 X10'3 (140-440); RED BLOOD COUNT 3.53 X10'6 (4.70-6.10); RED CELL DISTRIBUTION WIDTH 16.9 % (11.5-14.5); WHITE BLOOD COUNT 6.6 X10'3 (4.5-11.0)
--- NOTE | 2024-07-19 09:36 | PROGRESS NOTE- Residence ---
Progress Note - Resident Providers to CC Resident Creating Document: KAMLA MCCLENDON RES CC: JOSE M CURRIE MD ~ Central Line/PICC still needed: Yes Central Line/PICC Necessity: Prolonged IV access req Zamora-Non Protocol Zamora Indications Met/Not Met: F/C Indications Met Antibiotic Timeout Antibiotic Ordered?: No Subjective No acute overnight events noted. BiPap overnight for SALLY, currently on HFNC @ 25 L/min, patient denies any new complaints, nursing yesterday transferred him to the recliner with a hoyers lift. Objective Vital Signs Date Time Temp Pulse Resp B/P (MAP) Pulse Ox O2 Delivery O2 Flow Rate FiO2 07/19/24 09:00 66 15 98/50 (66) 94 High Flow Nasal Cannula 30.0 25 07/19/24 07:00 98.6 Result Diagram: 07/19/24 0842 07/19/24 0716 General: Adult male, awake and alert, on HFNC @ 25/min Head: Normocephalic with an atraumatic Eyes: Pupils- 3mm, reacting to light, conjunctiva- anicteric Nose and throat: No polyps, septum- normal, no mucosal ulcers Neck: Supple, no lymphadenopathy, no carotid bruit Respiratory: No use of accessory muscles of respiration, bilateral equal air entry present Cardiac: S1-S2 heard, rythm regular, no gallop/murmur Abdomen: non distended, no tenderness, no organomegaly, bowel sounds- heard Extremities: no clubbing, pedal edema came down, no deformities, peripheral pulses- 2+ Skin: warm and dry, no rash, no purpura Neuro: Moving all extremities Coagulation Studies Laboratory Tests Test 07/03/24 20:05 Prothrombin Time 11.3 SECONDS (9.0-12.0) INR International Normalized Ratio 1.1 INR Activated Partial Thromboplast Time 27 SECONDS (22-32) Coagulation Comments Assessment Assessment 54-year-old male who is ex-smoker (40 years smoking history) and morbidly obese, with a history of COPD was transferred from [facility] for further evaluation and management of sepsis, altered mental status, acute hypoxemic respiratory failure, and acute kidney injury. Patient was initially presented to the transferring facility for altered mentation and found down for prolonged period of time (altered, labored breathing, foaming at mouth). He was initially on BiPAP and later intubated. His FiO2 requirements had been gone up to 90%. He had been on two pressors i.e. Levophed and vasopressin, at the time of transfer Plan Plan Respiratory: Acute hypoxemic respiratory failure 2/2 likely aspiration pneumonia History of COPD extubated on 07/10, reintubated on 07/11, extubated on 07/14 Left lung atelectasis- improved after bronchoscopy on 07/11 -CT chest done on 07/17- bibasiliar atelactsis, patchy opacities left upper lobe -currently on HFNC at 25 L/min Plan -patient is doing better -continue HFNC, wean off oxygen, to maintain [id number] -pulmonary toilet Infectious disease: Sepsis present on admission Source likely aspiration pneumonia Completed seven day course of Zosyn on 07/10, and vanco dced Procalcitonin, and resp cultures on 05/12- negative Respiratory cultures from ET suction on 07/11 positive for MRSA- not on antibiotics, MRSA was thought to be secondary to colonization Cardiac: LVEF is 65-70% on echocardiogram Off pressors. AFib- currently rate controlled decreased metoprolol to 25 mg q.12 dc amio gtt Neurologic: Acute metabolic encephalopathy, likely 2/2 sepsis- resolved Renal: Acute renal failure has resolved. Cr back to baseline with good uop nephrology signed off Creatinine improving after stopping Lasix Monitor BMP input output chart Morbid obesity: Can not exclude SALLY and OHS Hepatobiliary -bilirubin down to 1.5>> 1.9>> 1.5>> 1.7>>1.3>> 4 -AST/ALT-- downtrending, ALP- uptrending -suspect 2/2 drug induced amiodarone Hematology Normocytic normochromic anemia -H&H 10.1/30.2 -serum iron, TIBC -low, transferrin and ferritin normal Metabolic alkalosis- resolved -likely 2/2 contraction alkalosis due to lasix -dc diamox Events on 07/10 -patient was extubated, transitioned to HFNC and then to BiPAP Events on 07/11 -overnight sats dropped, chest x-ray showed left hemithorax opacification, and got re intubated -bronchoscopy in the a.m. showed copious clear secretions, left bronchus mucus plugging, improved left lung atelectasis on chest x-ray after bronchoscopy -increased dose of Lasix to 60 mg q.8h and added IV Solu-Medrol 30 mg q.6 and Mucinex nebulizations -remains on AC/CMV with peep of 12, FiO2 of 85 Events on 07/12 -on AC/PRVC with a PEEP of 12, FiO2 of 55 -mild bump in creatinine and BUN, reducing the dose of Lasix to 60 mg q.2h -LFTs uptrending, hemoglobin downtrending, labs ordered for anemia workup Events on 07/14 -patient got extubated Events on 07/16 -alternating between BiPAP and HFNC/NRBM -episode of SVT/AFib last night and was started on amio drip 07/17 -CT chest today -FiO2 down to 70% on BiPAP -1 L LR bolus for hypotension 07/18 -CT chest showed- bibasilar atelectasis left upper lobe patchy opacity -on HFNC at 12 L/min -reduced metoprolol dose of 50 mg q.12 -pulmonary toilet and physical therapy -added IV acetazolamide for metabolic alkalosis 07/19 -on HFNC @ 25L/min -DC Diamox, DC amio -decreased metoprolol to 25 mg q12 -downgraded to pcu Lines and tubes: Zamora catheter Right PICC Code Status: full code Analgesia/sedation: none GI prophylaxis: pepcid DVT prophylaxis: apixaban Nutrition: minced moist PT/OT/SP: yes Prognosis: Guarded Disposition: ICU team will sign off, downgraded to PCU Kamla Mcclendon, ICU PGY-2 resident Date of Service: Jul 19, 2024 Billing Provider: JOSE M CURRIE MD,KAMLA, RES Jul 19, 2024 09:36
--- NOTE | 2024-07-19 17:04 | PROGRESS NOTE ---
Daily Progress Note Providers to CC ~ Antibiotic Timeout Antibiotic Ordered?: No Subjective Patient is still requiring high-flow oxygen and saturating 90%. Patient alert awake responded well to verbal commands Objective Vital Signs Date Time Temp Pulse Resp B/P (MAP) Pulse Ox O2 Delivery O2 Flow Rate FiO2 07/19/24 15:00 97.0 69 24 90/49 (63) 90 High Flow Nasal Cannula 30.0 25 Result Diagram: 07/19/24 0842 07/19/24 0716 General-patient not in any acute distress, alert awake , morbidly obese, ill- appearing HEENT-atraumatic normocephalic, neck supple without elevated JVD, no thyromegaly or carotid bruit. No lymphadenopathy bilaterally. Eyes-no icterus or pallor seen in eyes Chest-coarse breath sounds present to auscultation bilaterally, breathing nonlabored no tachypnea, mild wheezing,. Heart-S1-S2 normal, regular heart rate no murmur Abdomen bowel sounds positive on auscultation, soft nondistended nontender no guarding, no rigidity Neurology-grossly intact, nonfocal alert awake Extremity- no pedal edema able to move all 4 extremities with mild support Psychiatry - patient is not confused or agitated cooperated during physical examination Coagulation Studies Laboratory Tests Test 07/03/24 20:05 Prothrombin Time 11.3 SECONDS (9.0-12.0) INR International Normalized Ratio 1.1 INR Activated Partial Thromboplast Time 27 SECONDS (22-32) Coagulation Comments Problem\Assessment\Plan Problems/Diagnosis: (1) Sepsis # sepsis/septic shock- secondary to aspiration pneumonia On IV vancomycin IV Zosyn 07/08 Levophed is DC patient was blood pressure is up trending 07/10 has resolved 07/13 patient continues to spike fevers thus I have reordered blood cultures 07/14 blood cultures negative times 24 hours, sputum cultures Gram-positive cocci 07/15 sputum positive for MRSA- I spoke with Dr. 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 07/16 white blood cell count up yesterday 07/17- WBC 8.7 # hypertension- borderline blood pressure # acute respiratory failure secondary to aspiration pneumonia Patient was son found the patient not breathing and had aspirated the patient has obstructive sleep apnea and is waiting for a CPAP 07/05 status post bronchoscopy with a large mucus plug causing left upper lobe atelectasis- remains on a ventilator at 60% FiO2 with a PEEP of 10 07/06 improving- on 50% FiO2 with a PEEP of 7.0 07/07 slightly improved on 45% FiO2 however the patient failed spontaneous breathing trial 07/08 the patient has failed spontaneous breathing trial today and now is on 70% FiO2 remains intubated on ventilator 07/09 oxygen has been titrated down to of 60% FiO2 07/10 extubated today on high-flow oxygen and currently on CPAP 07/11 reintubated last evening for completely whiteout of the left lung- status post bronchoscopy with the mucus plugging of the left mainstem bronchus by Dr. Mclean environmental health nurse- oxygen demand is improved from 100% O2 now on 70% O2 07/12 on 60% on oxygen remains intubated on a ventilator 07/13 the patient remains on a ventilator currently on 40% oxygen with a PEEP of 10 07/14 patient was on 19 L of high-flow oxygen via [place] 07/15 the patient now is on 30 L of high-flow oxygen via [place] 07/16 the patient currently is BiPAP dependent trials to titrate down to a high- flow oxygen has been unsuccessful 07/17- requiring 13 L of high-flow oxygen, # AFib RVR On amiodarone and digoxin and esmolol 07/05 remains on amiodarone drip 07/07 amiodarone was discontinued due the patient was slightly bradycardic and l iver function test markedly up trended, esmolol was discontinued as well patient was on p.o. metoprolol 07/08 heart rate is controlled with metoprolol 07/10 heart rate remains controlled 07/14 on apixaban and metoprolol tartrate 50 mg q.6 hours 07/16 on apixaban and metoprolol- the patient was restarted on an amiodarone drip last evening I did inform Dr. Mclean to keep a very close watch on the patient was liver function as I am concerned this is going to cause issues. # transaminitis with a significant up trend- 07/07 Amiodarone drip was discontinued today - Ultrasound of the abdomen was concerning for possible bile leak gallbladder was absent 07/08 improving since amiodarone was discontinued 07/09 Continues to improve 07/12 liver enzymes continued to up trend 07/13 significantly improved today 07/14 continues to improve daily 07/16 liver function worsened today- we will need a keep a close watch on the patient's liver function and if continues to worsen amiodarone we will need to be discontinued. 07/17-monitor liver function test # MICKEY Renal function is improving Power Plant Inspector Dr. Mckeon is on board and following the patient On a D5W drip 07/05 continues to improve- Dr. Mckeon assessed that the underlying cause is likely ATN 07/06 continues to improve 07/07 continues to improve- nephrology has signed off 07/08 has resolved continue monitor daily CMP 07/12 renal function has worsened the environmental health nurse team is back down on the patient's IV Lasix 07/13 renal function has stabilized today to continue to monitor # acute HFpEF- 07/09 ProBNP is 1100 received IV Lasix in his on b.i.d. IV Lasix 07/11 proBNP is 1728 IV Lasix is increased to 60 mg t.i.d. 07/12 IV Lasix doses decreased to 60 mg b.i.d. 07/13 renal function remained stable # obstructive sleep apnea Per the patient's son- awaiting evaluation for a CPAP Patient's current condition is guarded I will continue to follow patient along with the environmental health nurse team. Patient we will be transferred to PCU as per environmental health nurse team . Date of Service: Jul 19, 2024 Billing Provider: MITUL BRITT MD Common Visit Codes: [id number] INP/OBS CARE(MOD) MITUL BRITT MD Jul 19, 2024 17:04
[2024-07-19] MEDS: GADOTERATE MEGLUMINE 7.5 MMOL/15 ML VIAL IV ONE (17:49)
[2024-07-19] MEDS: metoprolol tartrate 25mg tablet PO SCH (20:00)
[2024-07-20] VITALS (31 sets, daily range): BP systolic 106–145; BP diastolic 51–78; PULSE 68–90; RESP 11–31; TEMP 97.6–97.9; O2SAT 82–100
[2024-07-20 01:15] LABS: BASOPHILS % (AUTO) 0.5 % (0-1); EOSINOPHILS # (AUTO) 0.4 X10'3 (0-0.9); HEMATOCRIT 29.7 % (42.0-52.0); HEMOGLOBIN 9.9 g/dl (14.0-17.9); LYMPHOCYTES # (AUTO) 1.3 X10'3 (1.1-4.8); LYMPHOCYTES % (AUTO) 20.8 % (21-51); MEAN CORPUSCULAR HEMOGLOBIN 29.3 PG (27.0-31.0); MEAN CORPUSCULAR HGB CONC 33.4 g/dL (33.0-36.5); MEAN CORPUSCULAR VOLUME 87.7 FL (78-98); MEAN PLATELET VOLUME 10.2 FL (7.4-10.4); MONOCYTES # (AUTO) 0.6 X10'3 (0-0.9); MONOCYTES % (AUTO) 10.4 % (2-12); NEUTROPHILS # (AUTO) 3.7 X10'3 (1.8-7.7); NEUTROPHILS % (AUTO) 61.3 % (42-75); PLATELET COUNT 203 X10'3 (140-440); RED BLOOD COUNT 3.39 X10'6 (4.70-6.10)
[2024-07-20 01:31] LABS: ALANINE AMINOTRANSFERASE 72 U/L (12-78); ALBUMIN 2.5 G/DL (3.4-5.0); ALBUMIN/GLOBULIN RATIO 0.7 (1.1-1.5); ALKALINE PHOSPHATASE 412 IU/L (46-116); ANION GAP 5 (8-16); ASPARTATE AMINO TRANSFERASE 17 U/L (10-37); BILIRUBIN,TOTAL 1.3 MG/DL (0.1-1.0); BLOOD UREA NITROGEN 33 MG/DL (7-18); BUN/CREATININE RATIO 23.4 (10.0-20.0); CALCIUM 8.5 MG/DL (8.5-10.1); CHLORIDE 98 MMOL/L (99-107); CREATININE 1.41 MG/DL (0.60-1.10); GLUCOSE 101 MG/DL (70-104); MAGNESIUM 2.2 MG/DL (1.5-2.4); PHOSPHORUS 3.2 MG/DL (2.3-4.5); POTASSIUM 3.8 MMOL/L (3.5-5.1); SODIUM 131 MMOL/L (135-145); TOTAL CARBON DIOXIDE 28.4 MMOL/L (24-32); TOTAL PROTEIN 6.2 G/DL (6.4-8.2); eCRCL 62 ML/MIN; eGFR 52 ML/MIN
[2024-07-20 03:01] LABS: TOTAL CELLS COUNTED 100
[2024-07-20 03:02] LABS: ANISOCYTOSIS 1+; PLATELET ESTIMATE NORMAL
[2024-07-20] MEDS ORDERED: dronabinol 2.5mg capsule PO PRN (10:25)
--- NOTE | 2024-07-20 19:15 | PROGRESS NOTE ---
Daily Progress Note Providers to CC ~ Antibiotic Timeout Antibiotic Ordered?: No Subjective Patient was seen in CICU he was almost getting ready to transferred to PCU. Using 4 L of nasal cannula denied any worsening of his breathing. Objective Vital Signs Date Time Temp Pulse Resp B/P (MAP) Pulse Ox O2 Delivery O2 Flow Rate FiO2 07/20/24 19:09 76 20 Nasal Cannula 2.0 07/20/24 18:55 93 28 07/20/24 15:00 97.9 136/78 (97) Result Diagram: 07/20/24 0056 07/20/24 0056 General-patient not in any acute distress, alert awake , morbidly obese, ill- appearing HEENT-atraumatic normocephalic, neck supple without elevated JVD, no thyromegaly or carotid bruit. No lymphadenopathy bilaterally. Eyes-no icterus or pallor seen in eyes Chest-coarse breath sounds present to auscultation bilaterally, breathing nonlabored no tachypnea, mild wheezing,. Heart-S1-S2 normal, regular heart rate no murmur Abdomen bowel sounds positive on auscultation, soft nondistended nontender no guarding, no rigidity Neurology-grossly intact, nonfocal alert awake Extremity- no pedal edema able to move all 4 extremities with mild support Psychiatry - patient is not confused or agitated cooperated during physical examination Coagulation Studies Laboratory Tests Test 07/03/24 20:05 Prothrombin Time 11.3 SECONDS (9.0-12.0) INR International Normalized Ratio 1.1 INR Activated Partial Thromboplast Time 27 SECONDS (22-32) Coagulation Comments Problem\Assessment\Plan Problems/Diagnosis: (1) Sepsis # sepsis/septic shock- secondary to aspiration pneumonia On IV vancomycin IV Zosyn 07/08 Levophed is DC patient was blood pressure is up trending 07/10 has resolved 07/13 patient continues to spike fevers thus I have reordered blood cultures 07/14 blood cultures negative times 24 hours, sputum cultures Gram-positive cocci 07/15 sputum positive for MRSA- I spoke with Dr. 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 07/16 white blood cell count up yesterday 07/17- WBC 8.7 # hypertension-stable # acute respiratory failure secondary to aspiration pneumonia Patient was son found the patient not breathing and had aspirated the patient has obstructive sleep apnea and is waiting for a CPAP 07/05 status post bronchoscopy with a large mucus plug causing left upper lobe atelectasis- remains on a ventilator at 60% FiO2 with a PEEP of 10 07/06 improving- on 50% FiO2 with a PEEP of 7.0 07/07 slightly improved on 45% FiO2 however the patient failed spontaneous breathing trial 07/08 the patient has failed spontaneous breathing trial today and now is on 70% FiO2 remains intubated on ventilator 07/09 oxygen has been titrated down to of 60% FiO2 07/10 extubated today on high-flow oxygen and currently on CPAP 07/11 reintubated last evening for completely whiteout of the left lung- status post bronchoscopy with the mucus plugging of the left mainstem bronchus by Dr. Mclean concrete block maker- oxygen demand is improved from 100% O2 now on 70% O2 07/12 on 60% on oxygen remains intubated on a ventilator 07/13 the patient remains on a ventilator currently on 40% oxygen with a PEEP of 10 07/14 patient was on 19 L of high-flow oxygen via [place] 07/15 the patient now is on 30 L of high-flow oxygen via [place] 07/16 the patient currently is BiPAP dependent trials to titrate down to a high- flow oxygen has been unsuccessful 07/17- requiring 13 L of high-flow oxygen, # AFib RVR On amiodarone and digoxin and esmolol 07/05 remains on amiodarone drip 07/07 amiodarone was discontinued due the patient was slightly bradycardic and l iver function test markedly up trended, esmolol was discontinued as well patient was on p.o. metoprolol 07/08 heart rate is controlled with metoprolol 07/10 heart rate remains controlled 07/14 on apixaban and metoprolol tartrate 50 mg q.6 hours 07/16 on apixaban and metoprolol- the patient was restarted on an amiodarone drip # transaminitis with a significant up trend- 07/07 Amiodarone drip was discontinued today - Ultrasound of the abdomen was concerning for possible bile leak gallbladder was absent 07/08 improving since amiodarone was discontinued 07/09 Continues to improve 07/12 liver enzymes continued to up trend 07/13 significantly improved today 07/14 continues to improve daily 07/16 liver function worsened today- we will need a keep a close watch on the patient's liver function and if continues to worsen amiodarone we will need to be discontinued. 07/17-monitor liver function test # MICKEY Renal function is improving Sql Programmer Analyst Dr. Mckeon is on board and following the patient On a D5W drip 07/05 continues to improve- Dr. Mckeon assessed that the underlying cause is likely ATN 07/06 continues to improve 07/07 continues to improve- nephrology has signed off 07/08 has resolved continue monitor daily CMP 07/12 renal function has worsened the concrete block maker team is back down on the patient's IV Lasix 07/13 renal function has stabilized today to continue to monitor # acute HFpEF- 07/09 ProBNP is 1100 received IV Lasix in his on b.i.d. IV Lasix 07/11 proBNP is 1728 IV Lasix is increased to 60 mg t.i.d. 07/12 IV Lasix doses decreased to 60 mg b.i.d. 07/13 renal function remained stable # obstructive sleep apnea Per the patient's son- awaiting evaluation for a CPAP Patient's current condition is guarded I will continue to follow patient in AM . Patient is transferred to PCU today. Date of Service: Jul 20, 2024 Billing Provider: MITUL BRITT MD Common Visit Codes: [id number] INP/OBS CARE(HIGH) MITUL BRITT MD Jul 20, 2024 19:15
[2024-07-21] VITALS (19 sets, daily range): BP systolic 107–118; BP diastolic 59–68; PULSE 58–98; RESP 16–23; TEMP 97.6–98.6; O2SAT 93–99
[2024-07-21 06:23] LABS: BASOPHILS # (AUTO) 0.1 X10'3 (0-0.2); BASOPHILS % (AUTO) 1.2 % (0-1); EOSINOPHILS # (AUTO) 0.5 X10'3 (0-0.9); EOSINOPHILS % (AUTO) 8.8 % (0-6); HEMATOCRIT 30.9 % (42.0-52.0); HEMOGLOBIN 10.1 g/dl (14.0-17.9); LYMPHOCYTES % (AUTO) 18.5 % (21-51); MEAN CORPUSCULAR HGB CONC 32.7 g/dL (33.0-36.5); MEAN CORPUSCULAR VOLUME 88.5 FL (78-98); MEAN PLATELET VOLUME 10.6 FL (7.4-10.4); MONOCYTES # (AUTO) 0.7 X10'3 (0-0.9); MONOCYTES % (AUTO) 13.1 % (2-12); NEUTROPHILS # (AUTO) 3.2 X10'3 (1.8-7.7); NEUTROPHILS % (AUTO) 58.4 % (42-75); PLATELET COUNT 226 X10'3 (140-440); RED CELL DISTRIBUTION WIDTH 17.3 % (11.5-14.5); WHITE BLOOD COUNT 5.6 X10'3 (4.5-11.0)
[2024-07-21 06:39] LABS: ALANINE AMINOTRANSFERASE 60 U/L (12-78); ALBUMIN 2.7 G/DL (3.4-5.0); ALBUMIN/GLOBULIN RATIO 0.7 (1.1-1.5); ALKALINE PHOSPHATASE 402 IU/L (46-116); ANION GAP 9 (8-16); ASPARTATE AMINO TRANSFERASE 17 U/L (10-37); BILIRUBIN,TOTAL 1.5 MG/DL (0.1-1.0); BLOOD UREA NITROGEN 23 MG/DL (7-18); BUN/CREATININE RATIO 16.8 (10.0-20.0); CALCIUM 8.9 MG/DL (8.5-10.1); CHLORIDE 105 MMOL/L (99-107); CREATININE 1.37 MG/DL (0.60-1.10); GLUCOSE 75 MG/DL (70-104); MAGNESIUM 2.4 MG/DL (1.5-2.4); PHOSPHORUS 3.8 MG/DL (2.3-4.5); POTASSIUM 3.6 MMOL/L (3.5-5.1); SODIUM 138 MMOL/L (135-145); TOTAL CARBON DIOXIDE 23.7 MMOL/L (24-32); TOTAL PROTEIN 6.6 G/DL (6.4-8.2); eCRCL 64 ML/MIN; eGFR 54 ML/MIN
[2024-07-21] MEDS: acetaminophen 325mg/10.15ml oral unit dose solution PO PRN (08:20)
[2024-07-21] MEDS: INSULIN LISPRO 100 UNIT/ML INSULN.PEN MULTI-DOSE SQ SCH (12:00)
--- NOTE | 2024-07-21 12:41 | PROGRESS NOTE ---
Daily Progress Note Providers to CC ~ Antibiotic Timeout Antibiotic Ordered?: No Subjective Patient was seen in PCU he is currently on 2 L and saturating very well. Denies any concerns waiting to get physical therapy evaluation. Objective Vital Signs Date Time Temp Pulse Resp B/P (MAP) Pulse Ox O2 Delivery O2 Flow Rate FiO2 07/21/24 12:26 65 20 Nasal Cannula 1.0 07/21/24 12:17 95 24 07/21/24 02:00 97.6 107/65 (79) Result Diagram: 07/21/24 0604 07/21/24 0604 General-patient not in any acute distress, alert awake , morbidly obese, ill- appearing HEENT-atraumatic normocephalic, neck supple without elevated JVD, no thyromegaly or carotid bruit. No lymphadenopathy bilaterally. Eyes-no icterus or pallor seen in eyes Chest-clear breath sounds present to auscultation bilaterally, breathing nonlabored no tachypnea, mild wheezing,. Heart-S1-S2 normal, regular heart rate no murmur Abdomen bowel sounds positive on auscultation, soft nondistended nontender no guarding, no rigidity Neurology-grossly intact, nonfocal alert awake Extremity- no pedal edema able to move all 4 extremities Psychiatry - patient is not confused or agitated cooperated during physical examination Coagulation Studies Laboratory Tests Test 07/03/24 20:05 Prothrombin Time 11.3 SECONDS (9.0-12.0) INR International Normalized Ratio 1.1 INR Activated Partial Thromboplast Time 27 SECONDS (22-32) Coagulation Comments Problem\Assessment\Plan Problems/Diagnosis: (1) Sepsis # sepsis/septic shock, secondary to aspiration pneumonia treated with IV vancomycin IV Zosyn in ICU . Blood cultures negative done on July 13, 2024, normal WBC and procalcitonin. # hypertension-stable, we will continue to monitor # acute respiratory failure secondary to aspiration pneumonia Patient was son found the patient not breathing and had aspirated the patient has obstructive sleep apnea and is waiting for a CPAP 07/05 status post bronchoscopy with a large mucus plug causing left upper lobe atelectasis- remains on a ventilator at 60% FiO2 with a PEEP of 10 07/06 improving- on 50% FiO2 with a PEEP of 7.0 07/07 slightly improved on 45% FiO2 however the patient failed spontaneous breathing trial 07/08 the patient has failed spontaneous breathing trial today and now is on 70% FiO2 remains intubated on ventilator 07/09 oxygen has been titrated down to of 60% FiO2 07/10 extubated today on high-flow oxygen and currently on CPAP 07/11 reintubated last evening for completely whiteout of the left lung- status post bronchoscopy with the mucus plugging of the left mainstem bronchus by Dr. Mclean reaming machine tender- oxygen demand is improved from 100% O2 now on 70% O2 07/12 on 60% on oxygen remains intubated on a ventilator 07/13 the patient remains on a ventilator currently on 40% oxygen with a PEEP of 10 07/14 patient was on 19 L of high-flow oxygen via [place] 07/15 the patient now is on 30 L of high-flow oxygen via [place] 07/16 the patient currently is BiPAP dependent trials to titrate down to a high- flow oxygen has been unsuccessful 07/17- requiring 13 L of high-flow oxygen, he is currently on 2 L and saturating very well between 96 and 97% # AFib RVR On amiodarone and digoxin and esmolol 07/05 remains on amiodarone drip 07/07 amiodarone was discontinued due the patient was slightly bradycardic and l iver function test markedly up trended, esmolol was discontinued as well patient was on p.o. 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 IV Lasix 07/11 proBNP is 1728 IV Lasix is increased to 60 mg t.i.d. 07/12 IV Lasix doses decreased to 60 mg b.i.d. Currently not on Lasix # obstructive sleep apnea Per the patient's son- awaiting evaluation for a CPAP Patient's current condition is guarded I will continue to follow patient in AM . 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
[2024-07-21] MEDS: NUT.TX.GLUC.INTOLER,LAC-FR,SOY (GLUCERNA) 237 ML PO SCH (13:00)
[2024-07-22] VITALS (20 sets, daily range): BP systolic 124–154; BP diastolic 67–77; PULSE 58–83; RESP 18–22; TEMP 97.1–98.6; O2SAT 91–98
[2024-07-22 06:40] LABS: BASOPHILS # (AUTO) 0.1 X10'3 (0-0.2); BASOPHILS % (AUTO) 1.5 % (0-1); EOSINOPHILS # (AUTO) 0.5 X10'3 (0-0.9); EOSINOPHILS % (AUTO) 7.9 % (0-6); HEMATOCRIT 29.7 % (42.0-52.0); HEMOGLOBIN 9.7 g/dl (14.0-17.9); LYMPHOCYTES # (AUTO) 1.2 X10'3 (1.1-4.8); LYMPHOCYTES % (AUTO) 18.8 % (21-51); MEAN CORPUSCULAR HEMOGLOBIN 28.7 PG (27.0-31.0); MEAN CORPUSCULAR HGB CONC 32.7 g/dL (33.0-36.5); MEAN CORPUSCULAR VOLUME 87.9 FL (78-98); MEAN PLATELET VOLUME 10.2 FL (7.4-10.4); MONOCYTES # (AUTO) 0.8 X10'3 (0-0.9); NEUTROPHILS % (AUTO) 59.8 % (42-75); PLATELET COUNT 258 X10'3 (140-440); RED BLOOD COUNT 3.37 X10'6 (4.70-6.10); RED CELL DISTRIBUTION WIDTH 17.5 % (11.5-14.5); WHITE BLOOD COUNT 6.6 X10'3 (4.5-11.0)
[2024-07-22 07:18] LABS: ALANINE AMINOTRANSFERASE 51 U/L (12-78); ALBUMIN 2.8 G/DL (3.4-5.0); ALBUMIN/GLOBULIN RATIO 0.7 (1.1-1.5); ALKALINE PHOSPHATASE 325 IU/L (46-116); ANION GAP 11 (8-16); ASPARTATE AMINO TRANSFERASE 25 U/L (10-37); BILIRUBIN,TOTAL 1.2 MG/DL (0.1-1.0); BLOOD UREA NITROGEN 20 MG/DL (7-18); BUN/CREATININE RATIO 13.3 (10.0-20.0); CALCIUM 8.8 MG/DL (8.5-10.1); CHLORIDE 103 MMOL/L (99-107); GLUCOSE 102 MG/DL (70-104); MAGNESIUM 2.2 MG/DL (1.5-2.4); POTASSIUM 3.6 MMOL/L (3.5-5.1); SODIUM 137 MMOL/L (135-145); TOTAL CARBON DIOXIDE 23.4 MMOL/L (24-32); TOTAL PROTEIN 6.7 G/DL (6.4-8.2); eCRCL 58 ML/MIN; eGFR 49 ML/MIN
[2024-07-22 08:24] LABS: NUCLEATED RED BLOOD CELLS 1 /100WBC (0-0); TOTAL CELLS COUNTED 100
[2024-07-22 08:25] LABS: ANISOCYTOSIS 1+; PLATELET ESTIMATE NORMAL
--- NOTE | 2024-07-22 18:54 | PROGRESS NOTE- Residence ---
Progress Note - Resident Providers to CC Resident Creating Document: AIDEN MARLEY RES ~ Antibiotic Timeout Antibiotic Ordered?: No Subjective Patient was seen and examined at the bedside today. No overnight events. Waiting for rehab. Objective Vital Signs Date Time Temp Pulse Resp B/P (MAP) Pulse Ox O2 Delivery O2 Flow Rate FiO2 07/22/24 16:15 71 18 Nasal Cannula 1.0 07/22/24 16:03 96 24 07/22/24 10:00 97.1 132/75 (94) Result Diagram: 07/22/24 0620 07/22/24 0620 General-patient not in any acute distress, alert awake , morbidly obese, ill- appearing HEENT-atraumatic normocephalic, neck supple without elevated JVD, no thyromegaly or carotid bruit. No lymphadenopathy bilaterally. Eyes-no icterus or pallor seen in eyes Chest-clear breath sounds present to auscultation bilaterally, breathing nonlabored no tachypnea, mild wheezing,. Heart-S1-S2 normal, regular heart rate no murmur Abdomen bowel sounds positive on auscultation, soft nondistended nontender no guarding, no rigidity Neurology-grossly intact, nonfocal alert awake Extremity- no pedal edema able to move all 4 extremities Coagulation Studies Laboratory Tests Test 07/03/24 20:05 Prothrombin Time 11.3 SECONDS (9.0-12.0) INR International Normalized Ratio 1.1 INR Activated Partial Thromboplast Time 27 SECONDS (22-32) Coagulation Comments Assessment Assessment 54-year-old male who is ex-smoker (40 years smoking history) and morbidly obese, with a history of COPD was transferred from [facility] for further evaluation and management of sepsis, altered mental status, acute hypoxemic respiratory failure, and acute kidney injury. Patient was initially presented to the transferring facility for altered mentation and found down for prolonged period of time (altered, labored breathing, foaming at mouth). He was initially on BiPAP and later intubated. His FiO2 requirements had been gone up to 90%. He had been on two pressors i.e. Levophed and vasopressin, at the time of transfer Plan Plan # sepsis/septic shock, secondary to aspiration pneumonia treated with IV vancomycin IV Zosyn in ICU . Blood cultures negative done on July 13, 2024, normal WBC and procalcitonin # acute respiratory failure secondary to aspiration pneumonia 07/05 status post bronchoscopy with a large mucus plug causing left upper lobe atelectasis- was intubated and ventilated. 07/10 extubated 07/11 reintubated for completely whiteout of the left lung- status post bronchoscopy with the mucus plugging of the left mainstem bronchus by Dr. Mclean philosophy faculty member- 07/14 extubated and is on high-flow oxygen. Currently on 2 L of oxygen with nasal cannula. # AFib RVR -currently controlled Patient was initially managed with amiodarone drip, esmolol and digoxin- discontinued Currently on metoprolol 25 mg q.12 and Eliquis. # transaminitis Liver enzymes trended down # MICKEY Creatinine remained stable We will continue to monitor renal function # acute HFpEF-70% ProBNP 1481 Lasix discontinuing the of worsening renal function # obstructive sleep apnea Per the patient's son- awaiting evaluation for a CPAP Code status: Full code DVT prophylaxis: Apixaban Diet: easy to chew Disposition: Awaiting rehab placement Aiden marley M.D PGY1 Date of Service: Jul 22, 2024 Billing Provider: JANINE DAVILA MD Common Visit Codes: [id number] INP/OBS CARE(HIGH) AIDEN MARLEY, RES Jul 22, 2024 18:54 JANINE DAVILA MD Jul 22, 2024 20:54
[2024-07-23] VITALS (20 sets, daily range): BP systolic 132–151; BP diastolic 72–90; PULSE 58–87; RESP 16–22; TEMP 97.7–98.4; O2SAT 90–99
[2024-07-23 06:08] LABS: BASOPHILS # (AUTO) 0.1 X10'3 (0-0.2); BASOPHILS % (AUTO) 1.3 % (0-1); EOSINOPHILS # (AUTO) 0.5 X10'3 (0-0.9); EOSINOPHILS % (AUTO) 7.2 % (0-6); HEMATOCRIT 29.7 % (42.0-52.0); HEMOGLOBIN 9.8 g/dl (14.0-17.9); LYMPHOCYTES # (AUTO) 1.1 X10'3 (1.1-4.8); LYMPHOCYTES % (AUTO) 15.1 % (21-51); MEAN CORPUSCULAR HEMOGLOBIN 28.7 PG (27.0-31.0); MEAN CORPUSCULAR VOLUME 87.1 FL (78-98); MEAN PLATELET VOLUME 9.9 FL (7.4-10.4); MONOCYTES # (AUTO) 0.8 X10'3 (0-0.9); MONOCYTES % (AUTO) 11.6 % (2-12); NEUTROPHILS # (AUTO) 4.5 X10'3 (1.8-7.7); NEUTROPHILS % (AUTO) 64.8 % (42-75); PLATELET COUNT 273 X10'3 (140-440); RED BLOOD COUNT 3.41 X10'6 (4.70-6.10); RED CELL DISTRIBUTION WIDTH 17.2 % (11.5-14.5)
[2024-07-23 06:48] LABS: ALANINE AMINOTRANSFERASE 42 U/L (12-78); ALBUMIN 2.7 G/DL (3.4-5.0); ALBUMIN/GLOBULIN RATIO 0.7 (1.1-1.5); ALKALINE PHOSPHATASE 274 IU/L (46-116); ANION GAP 15 (8-16); ASPARTATE AMINO TRANSFERASE 11 U/L (10-37); BILIRUBIN,TOTAL 1.4 MG/DL (0.1-1.0); BLOOD UREA NITROGEN 18 MG/DL (7-18); BUN/CREATININE RATIO 12.2 (10.0-20.0); CALCIUM 8.6 MG/DL (8.5-10.1); CHLORIDE 103 MMOL/L (99-107); CREATININE 1.47 MG/DL (0.60-1.10); GLUCOSE 93 MG/DL (70-104); MAGNESIUM 2.2 MG/DL (1.5-2.4); PHOSPHORUS 4.3 MG/DL (2.3-4.5); POTASSIUM 3.2 MMOL/L (3.5-5.1); SODIUM 139 MMOL/L (135-145); TOTAL CARBON DIOXIDE 21.2 MMOL/L (24-32); TOTAL PROTEIN 6.6 G/DL (6.4-8.2); eCRCL 59 ML/MIN; eGFR 50 ML/MIN
--- NOTE | 2024-07-23 17:23 | RADIOLOGY REPORT ---
EXAM: US Abdomen Limited, Right Upper Quadrant CLINICAL INDICATION: to detect any hepatobiliary pathology as Prev scan showed hyper echogenic TECHNIQUE: Real-time ultrasound of the right upper quadrant with image documentation. COMPARISON: US ULTRASOUND OF ABDOMEN on DOS: 07/07/24 FINDINGS: LIVER: Liver measures 15.82 cm. Fatty infiltration of the liver. No intrahepatic bile duct dilati on. GALLBLADDER: Cholecystectomy. COMMON BILE DUCT: Unremarkable as visualized. No stones. No dilation. Common bile duct measures 0.43 cm in diameter. PANCREAS: Unremarkable as visualized. RIGHT KIDNEY: Right kidney measures up to 11.8 cm. 2.2 cm simple right renal cyst. No stones. No hydronephrosis. OTHER FINDINGS: . . IMPRESSION: 1. Fatty infiltration of the liver. 2. 2.2 cm simple right renal cyst.
--- NOTE | 2024-07-23 19:08 | PROGRESS NOTE- Residence ---
Progress Note - Resident Providers to CC Resident Creating Document: KAELA PARRA RES ~ Antibiotic Timeout Antibiotic Ordered?: No Subjective pt was seen at the bedside with and son who provided that he found his dad around evening time at his room as he did not come out for dinner once he saw his dad as normal around the lunch time on that day before he went to the hospital, found unresponsive with the frothy mouth secretion. Pt stated that he could not remember what has happened to him on that day. pt will be sent out to the rehab once the rehab accepted. Objective Vital Signs Date Time Temp Pulse Resp B/P (MAP) Pulse Ox O2 Delivery O2 Flow Rate FiO2 07/23/24 15:00 97.9 78 17 151/90 (110) 99 Room Air 07/23/24 12:25 0.0 07/23/24 12:19 21 Result Diagram: 07/23/2452807/23/24528 Patient was seen at the bedside this morning with a stable vital signs. General: Well alert, well oriented, not confused, not agitated, not in acute distress, well cooperated during the physical. HEENT: Conjunctive are pink, sclerae clear, no icterus, pupil is equal in both sides, reactive to light, no ear discharge, no pharyngeal erythema or an edema, mouth and lips are moist. Neck: Supple, no JVD, no lymphadenopathy and thyromegaly. 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: No focal neurological deficits, no motor and sensory weakness in all 4 extremities, could move all 4 extremities Musculoskeletal: No joint swelling, deformities, inflammations, and no scoliosis and back tenderness Skin: No active skin lesions and rashes Coagulation Studies Laboratory Tests Test 07/03/24 20:05 Prothrombin Time 11.3 SECONDS (9.0-12.0) INR International Normalized Ratio 1.1 INR Activated Partial Thromboplast Time 27 SECONDS (22-32) Coagulation Comments Assessment Assessment 54-year-old male who is ex-smoker (40 years smoking history) and morbidly obese, with a history of COPD was transferred from [facility] for further evaluation and management of sepsis, altered mental status, acute hypoxemic respiratory failure, and acute kidney injury. Patient was initially presented to the transferring facility for altered mentation and found down for prolonged period of time (altered, labored breathing, foaming at mouth). He was initially on BiPAP and later intubated. His FiO2 requirements had been gone up to 90%. He had been on two pressors i.e. Levophed and vasopressin, at the time of transfer Plan Plan # sepsis/septic shock, secondary to aspiration pneumonia treated with IV vancomycin IV Zosyn in ICU . Not currently on any ABx. Blood cultures negative done on July 13, 2024, normal WBC and procalcitonin # acute respiratory failure secondary to aspiration pneumonia 07/23 maintaining SpO2 96% on room air. 07/05 status post bronchoscopy with a large mucus plug causing left upper lobe atelectasis- was intubated and ventilated. 07/10 extubated 07/11 reintubated for completely whiteout of the left lung- status post bronchoscopy with the mucus plugging of the left mainstem bronchus by Dr. Mclean discount clerk- 07/14 extubated and is on high-flow oxygen. # AFib RVR -currently controlled Patient was initially managed with amiodarone drip, esmolol and digoxin- discontinued Currently on metoprolol 25 mg q.12 and Eliquis. # transaminitis # Hyperbilirubinaemia Ordered USG abd showed fatty infiltration and 2.2 cm right renal cyst on 07/23/24. Liver enzymes trended down # MICKEY- gradually improving Creatinine remained stable with 1.47 We will continue to monitor renal function # acute HFpEF-70% ProBNP 1481 Lasix discontinuing the of worsening renal function # obstructive sleep apnea Per the patient's son- awaiting evaluation for a CPAP Code status: Full code DVT prophylaxis: Apixaban Diet: easy to chew Disposition: cont med management, PT Eval and tomorrow DC to the rehab. Resident attestation: Patient was seen and examined with attending , Dr. Danae PARRA MD Internal Medicine Resident, PGY2 [facility] Date of Service: Jul 23, 2024 Billing Provider: JANINE DAVILA MD Common Visit Codes: [id number] INP/OBS CARE(HIGH) KAELA PARRA, RES Jul 23, 2024 19:08 JANINE DAVILA MD Jul 23, 2024 21:08
[2024-07-23] MEDS: POTASSIUM CHLORIDE 20 MEQ/15 ML oral solution PO PRN (19:35)
[2024-07-24] VITALS (11 sets, daily range): BP systolic 136–147; BP diastolic 68–112; PULSE 62–82; RESP 17–22; TEMP 96–98.9; O2SAT 90–98
[2024-07-24 06:15] LABS: BASOPHILS # (AUTO) 0.1 X10'3 (0-0.2); BASOPHILS % (AUTO) 1.3 % (0-1); EOSINOPHILS # (AUTO) 0.5 X10'3 (0-0.9); EOSINOPHILS % (AUTO) 5.8 % (0-6); HEMATOCRIT 31.3 % (42.0-52.0); HEMOGLOBIN 10.5 g/dl (14.0-17.9); LYMPHOCYTES # (AUTO) 1.4 X10'3 (1.1-4.8); LYMPHOCYTES % (AUTO) 17.5 % (21-51); MEAN CORPUSCULAR HEMOGLOBIN 29.3 PG (27.0-31.0); MEAN CORPUSCULAR HGB CONC 33.6 g/dL (33.0-36.5); MEAN CORPUSCULAR VOLUME 87.2 FL (78-98); MEAN PLATELET VOLUME 9.6 FL (7.4-10.4); MONOCYTES # (AUTO) 0.8 X10'3 (0-0.9); MONOCYTES % (AUTO) 9.6 % (2-12); NEUTROPHILS # (AUTO) 5.3 X10'3 (1.8-7.7); NEUTROPHILS % (AUTO) 65.8 % (42-75); PLATELET COUNT 336 X10'3 (140-440); RED BLOOD COUNT 3.59 X10'6 (4.70-6.10); RED CELL DISTRIBUTION WIDTH 17.3 % (11.5-14.5)
[2024-07-24 06:32] LABS: ALANINE AMINOTRANSFERASE 38 U/L (12-78); ALBUMIN 2.9 G/DL (3.4-5.0); ALBUMIN/GLOBULIN RATIO 0.7 (1.1-1.5); ALKALINE PHOSPHATASE 249 IU/L (46-116); ANION GAP 10 (8-16); ASPARTATE AMINO TRANSFERASE 11 U/L (10-37); BILIRUBIN,TOTAL 1.3 MG/DL (0.1-1.0); BLOOD UREA NITROGEN 16 MG/DL (7-18); BUN/CREATININE RATIO 9.6 (10.0-20.0); CHLORIDE 104 MMOL/L (99-107); CREATININE 1.66 MG/DL (0.60-1.10); GLUCOSE 112 MG/DL (70-104); MAGNESIUM 1.9 MG/DL (1.5-2.4); PHOSPHORUS 3.5 MG/DL (2.3-4.5); POTASSIUM 3.6 MMOL/L (3.5-5.1); SODIUM 136 MMOL/L (135-145); TOTAL CARBON DIOXIDE 21.9 MMOL/L (24-32); eCRCL 53 ML/MIN; eGFR 43 ML/MIN
[2024-07-24 08:30] LABS: ANISOCYTOSIS 1+; LARGE PLATELETS FEW; PLATELET ESTIMATE NORMAL; TOTAL CELLS COUNTED 100
--- NOTE | 2024-07-24 19:39 | DISCHARGE SUMMARY-Residence ---
Discharge Summary Providers to CC Resident Creating Document: FIDELKAELA, RES ~ Discharge Summary Admission Diagnosis: acute resp failure Hospital Course DATE OF ADMISSION: 07/03/2024 DATE OF DISCHARGE: 07/24/2024 Discharge Diagnosis\Comment: Sepsis and septic shock, acute respiratory failure - secondary to possible aspiration pneumonia AFib RVR -currently controlled Hyperbilirubinaemia and transaminitis- improved MICKEY possible contrast exposure vs renal tubular stasis- gradually improving Acute HFpEF-70% Hx of obstructive sleep apnea Operations\Procedures: Bronchoscopy by Dr. Mclean intensivinist Consultants: Pulmonology and suction plate carrier cleaner team Complications: None Condition on DC: Stable for transfer Discharge Summary: 54-year-old male who is ex-smoker (40 years smoking history) and morbidly obese, with a history of COPD was transferred from [facility] for further evaluation and management of sepsis, altered mental status, acute hypoxemic respiratory failure, and acute kidney injury. Hospital Course: Patient was initially presented from the transferring facility ([place]) for altered mentation and found down on the ground on his face for prolonged period of time (altered, labored breathing, foaming at mouth). Previously he has no prodromal symptoms before he was suspected to be aspirated which was witnessed and found by his son at his room. He was directly admitted to the CICU for his c ritcal ill condition on admission. He was initially on BiPAP and later intubated with the mechanical ventilation support with sedations and pressors for his septic shock and revived with plenty of IV fluid resuscitation. His FiO2 requirements had been gone up to 90%. He had been on two pressors i.e. Levophed and vasopressin, at the time of transfer. His septic shock was treated with IV Vancomycin and Zosyn in ICU and Blood cultures negative done on July 13, 2024. He underwent bronchoscopy by Dr Mclean on showed a large mucous plug causing left upper lobe atelectasis and was extubated on 07/10/24. However, he was reintubated again for completely white out lung in ICU and he was extubated on 07/14/24 and was on High flow oxygen. Patient's A fib with RVR were initially managed with amiodarone drip, esmolol and digoxin but his HR is stabilized and controlled around 70s today. He is currently maintaining his Afib with PO Metoprolol and is on Eliquis. His liver enzymes were trending down and we ordered USG abdomen on 07/23/24 showed fatty infiltration and 2.2 cm of right renal cyst as his previous USG abdomen scan on 07/07/24 showing a large anechoci collection with echogenic material in the right upper quadrant. His MICKEY has been treated with IV fluids and dialy monitoring I's and O's and Cr showed 1.66 today. His lasix therapy for his elevated proBNP 1481 with acute CHFpEF 70% was held during the hospitalization as his creatinine was trending up. DVT prophylaxis was achieved with Apixaban. Today all of his labs and vitals were reviewed showing the improvement and vitals were stable at that moment. On examination, General: Well alert, well oriented, not confused, not agitated, not in acute distress, well cooperated during the physical. HEENT: Conjunctive are pink, sclerae clear, no icterus, pupil is equal in both sides, reactive to light, no ear discharge, no pharyngeal erythema or an edema, mouth and lips are moist. Neck: Supple, no JVD, no lymphadenopathy and thyromegaly. 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 metoprolol 25 mg q.12 hours P.o. Eliquis 5 mg q.12 hours P.o. famotidine q.12 hours Nebulization therapy with albuterol/ipratropium q.4 hours as needed P.o. amlodipine 2.5 mg daily P.o. furosemide 20 mg daily P.o. gabapentin 300 mg q.8 hours P.o. methocarbamol 500 mg q.8 hours Discharge instructions: -Immediate return to ER for the progressive shortness of breath, chest pain, altered mental status, and any other emergent saturations. -follow up with PCP in one week after discharge -medication compliance -follow up with the Cardiology for the AFib and heart failure management. Resident MD attestation: Patient was seen and examined with attending MD, Dr. Danae PARRA MD Internal Medicine Resident, PGY2 [facility] *Problems/Diagnosis: (1) Sepsis Status: Resolved Total Time Spent on D/C: > 30 Minutes Date of Service: Jul 24, 2024 Billing Provider: JANINE DAVILA MD Common Visit Codes: [id number] DISCH DAY >30min KAELA PARRA, YESSI Jul 24, 2024 19:38 JANINE DAVILA MD Jul 24, 2024 21:46
== END 2024-07-24 13:45 | DRG 720 ==
LOC: CICU 2S 19:33 → UNDOADMIN 19:33 → CICU 2S 19:35 → UNDOADMIN 20:46 → CICU 2S 20:46 → PCU 3S 07-20 13:03
PROVIDERS: ADMIT Internal Medicine Critical Care Medicine; ATTEND Internal Medicine Critical Care Medicine
PROC: 5A1955Z Respiratory Ventilation, Greater than 96 Consecutive Hours (ICD-10-PCS; 2024-07-03)
PROC: 0BH17EZ Insertion of Endotracheal Airway into Trachea, Via Natural or Artificial Opening (ICD-10-PCS; 2024-07-03)
PROC: 0BC78ZZ Extirpation of Matter from Left Main Bronchus, Via Natural or Artificial Opening Endoscopic (ICD-10-PCS; principal; 2024-07-05)
PROC: BW251ZZ Computerized Tomography (CT Scan) of Chest, Abdomen and Pelvis using Low Osmolar Contrast (ICD-10-PCS; 2024-07-05)
PROC: 02HV33Z Insertion of Infusion Device into Superior Vena Cava, Percutaneous Approach (ICD-10-PCS; 2024-07-06)
PROC: 5A0935A Assistance with Respiratory Ventilation, Less than 24 Consecutive Hours, High Flow/Velocity Cannula (ICD-10-PCS; 2024-07-10)
PROC: 5A09357 Assistance with Respiratory Ventilation, Less than 24 Consecutive Hours, Continuous Positive Airway Pressure (ICD-10-PCS; 2024-07-10)
PROC: 0B978ZZ Drainage of Left Main Bronchus, Via Natural or Artificial Opening Endoscopic (ICD-10-PCS; 2024-07-11)
PROC: 0BH17EZ Insertion of Endotracheal Airway into Trachea, Via Natural or Artificial Opening (ICD-10-PCS; 2024-07-11)
PROC: 5A1945Z Respiratory Ventilation, 24-96 Consecutive Hours (ICD-10-PCS; 2024-07-11)
PROC: 5A0935A Assistance with Respiratory Ventilation, Less than 24 Consecutive Hours, High Flow/Velocity Cannula (ICD-10-PCS; 2024-07-14)
PROC: 5A09357 Assistance with Respiratory Ventilation, Less than 24 Consecutive Hours, Continuous Positive Airway Pressure (ICD-10-PCS; 2024-07-14)
PROC: 5A09357 Assistance with Respiratory Ventilation, Less than 24 Consecutive Hours, Continuous Positive Airway Pressure (ICD-10-PCS; 2024-07-15)
PROC: 5A0935A Assistance with Respiratory Ventilation, Less than 24 Consecutive Hours, High Flow/Velocity Cannula (ICD-10-PCS; 2024-07-15)
PROC: 5A0935A Assistance with Respiratory Ventilation, Less than 24 Consecutive Hours, High Flow/Velocity Cannula (ICD-10-PCS; 2024-07-16)
PROC: 5A09357 Assistance with Respiratory Ventilation, Less than 24 Consecutive Hours, Continuous Positive Airway Pressure (ICD-10-PCS; 2024-07-16)
PROC: 05HC33Z Insertion of Infusion Device into Left Basilic Vein, Percutaneous Approach (ICD-10-PCS; 2024-07-17)
PROC: 5A09357 Assistance with Respiratory Ventilation, Less than 24 Consecutive Hours, Continuous Positive Airway Pressure (ICD-10-PCS; 2024-07-17)
PROC: 5A0935A Assistance with Respiratory Ventilation, Less than 24 Consecutive Hours, High Flow/Velocity Cannula (ICD-10-PCS; 2024-07-17)
PROC: 5A0935A Assistance with Respiratory Ventilation, Less than 24 Consecutive Hours, High Flow/Velocity Cannula (ICD-10-PCS; 2024-07-18)
PROC: 5A09357 Assistance with Respiratory Ventilation, Less than 24 Consecutive Hours, Continuous Positive Airway Pressure (ICD-10-PCS; 2024-07-18)
PROC: 5A0935A Assistance with Respiratory Ventilation, Less than 24 Consecutive Hours, High Flow/Velocity Cannula (ICD-10-PCS; 2024-07-18)
PROC: 5A0935A Assistance with Respiratory Ventilation, Less than 24 Consecutive Hours, High Flow/Velocity Cannula (ICD-10-PCS; 2024-07-19)
PROC: 5A09357 Assistance with Respiratory Ventilation, Less than 24 Consecutive Hours, Continuous Positive Airway Pressure (ICD-10-PCS; 2024-07-20)
PROC: 5A09357 Assistance with Respiratory Ventilation, Less than 24 Consecutive Hours, Continuous Positive Airway Pressure (ICD-10-PCS; 2024-07-21)
PROC: 5A09357 Assistance with Respiratory Ventilation, Less than 24 Consecutive Hours, Continuous Positive Airway Pressure (ICD-10-PCS; 2024-07-22)
PROC: 5A09357 Assistance with Respiratory Ventilation, Less than 24 Consecutive Hours, Continuous Positive Airway Pressure (ICD-10-PCS; 2024-07-23)
PROC: 5A09357 Assistance with Respiratory Ventilation, Less than 24 Consecutive Hours, Continuous Positive Airway Pressure (ICD-10-PCS; 2024-07-24)
DX: A41.9 Sepsis, unspecified organism (principal); J80 Acute respiratory distress syndrome; N17.0 Acute kidney failure with tubular necrosis; R65.21 Severe sepsis with septic shock; J69.0 Pneumonitis due to inhalation of food and vomit; G93.41 Metabolic encephalopathy; I50.31 Acute diastolic (congestive) heart failure; E87.3 Alkalosis; D63.8 Anemia in other chronic diseases classified elsewhere; I11.0 Hypertensive heart disease with heart failure; E87.0 Hyperosmolality and hypernatremia; J98.11 Atelectasis; J44.0 Chronic obstructive pulmonary disease with (acute) lower respiratory infection; I48.91 Unspecified atrial fibrillation; G47.33 Obstructive sleep apnea (adult) (pediatric); E66.01 Morbid (severe) obesity due to excess calories; D64.9 Anemia, unspecified; D69.6 Thrombocytopenia, unspecified; I48.20 Chronic atrial fibrillation, unspecified; Z68.41 Body mass index [BMI] 40.0-44.9, adult
CPT/HCPCS: 31624; 31645; 36410; 36415; 36600; 71045; 71250; 74176; 76700; 76937; 80053; 80162; 80202; 80305; 81001; 82248; 82436; 82570; 82728; 82803; 82948; 83036; 83540; 83550; 83605; 83735; 83880; 84100; 84132; 84134; 84145; 84300; 84439; 84443; 84466; 84478; 85007; 85008; 85018; 85025; 85610; 85730; 87040; 87070; 87077; 87081; 87088; 87186; 92508; 92616; 93306; 93308; 94002; 94003; 94640; 94660; 94664; 94668; 94760; 97110; 97162; 97530; 99285; A4615; A5200; A6196; A6212; A6213; A6250; A6258; A6446; A6449; A6590; A7015; C1751; C1758; G0378; J0282; J0360; J1120; J1160; J1644; J1815; J1938; J1940; J2543; J2704; J2919; J3010; J3370; J3475; J3480; J3490; J7030; J7040; J7050; J7070; J7120; P9045